=== PATIENT | male | born 1950 | race Caucasian/White ===

== ENCOUNTER 2020-12-19 23:10 | Inpatient (IN) | payer MEDICARE, SELFPAY ==
--- NOTE | ~2020-12-19 | CT_ITS ---
EXAMINATION: CT HEAD WITHOUT CONTRAST CT CERVICAL SPINE WITHOUT CONTRAST CLINICAL INFORMATION: Pain status post fall COMPARISON: None. TECHNIQUE: Multidetector CT imaging of the head and cervical spine was performed without the use of intravenous contrast. Multiplanar reformats are reviewed. This CT examination was performed using dose optimization techniques as appropriate, variously including the following: *Automated exposure control *Adjustment of mA and/or kV according to patient size (this includes techniques or standardized protocols for targeted exams where dose is matched to indication/reason for exam; i.e. extremities or head) *Use of iterative reconstruction technique DLP: 1292 mGy-cm. FINDINGS: There is no evidence of acute intracranial hemorrhage or territorial infarction. No abnormal mass effect or midline shift is seen. Mejias to white matter differentiation is well preserved. No extra-axial fluid collections are identified. The ventricles are normal in size. Mild patchy subcortical and periventricular matter low-attenuation changes statistically related to microangiopathic gliosis. The osseous structures and soft tissues are normal. The mastoid air cells and visualized portions of the paranasal sinuses are well-aerated. Atlantooccipital alignment is maintained. The vertebral bodies and posterior elements align normally. No acute fracture or subluxation. Vertebral body heights are maintained.Endplate osteophytes present at C4-C5, C5-C6 with accompanying of vertebral arthrosis leading to moderate right foraminal narrowing at C4-C5 and mild right foraminal narrowing at C5-C6. 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 The cervicomedullary junction and spinal cord are grossly unremarkable. The paraspinal soft tissues are unremarkable. The imaged lung apices are clear CT/CT cervical spine wo con IMPRESSION: No acute intracranial pathology. No cervical spine fracture or malalignment.
[2020-12-19 23:21] VITALS: BP 110/66; BP 99/60; PULSE 82; PULSE 96; RESP 12; TEMP 36.5; O2SAT 100; O2SAT 98; BMI 29.7
[2020-12-20] VITALS (24 sets, daily range): BP systolic 79–123; BP diastolic 43–82; PULSE 65–95; RESP 11–18; TEMP 36.4–37; O2SAT 92–100; BMI 29.3
[2020-12-20 00:15] LABS: Partial Thromboplastin Time 54.9 SEC (24.1-38.0)
[2020-12-20 00:21] LABS: Basophils Percent Auto 0.1 % (0-2); Eosinophils Absolute Auto 0.1 X10*3/uL (0.0-0.4); Hematocrit 36.8 % (42-52); Hemoglobin 14.2 g/dl (14.0-18.0); Imm Gran Abs Auto 0.13 X10*3/uL (0.00-0.03); Imm Gran Pct Auto 1.3 % (0.0-0.4); Lymphocytes Absolute Auto 0.7 X10*3/uL (1.2-4.9); Lymphocytes Percent Auto 6.7 % (20-40); Mean Corpuscular Hemoglobin 33.1 pg (27.0-33.0); Mean Corpuscular Volume 85.8 fL (80-98); Mean Platelet Volume 9.1 fL (9.4-12.4); Monocytes Absolute Auto 0.8 X10*3/uL (0.1-1.2); Monocytes Percent Auto 8.3 % (2-11); Neutrophils Absolute Auto 8.4 X10*3/uL (2.0-8.3); Neutrophils Percent Auto 82.6 % (45-73); Platelet Count 218 X10*3/uL (160-400); Red Blood Count 4.29 X10*6/uL (4.60-5.80); Red Cell Distribution Width 12.3 % (11.0-16.0); SCAN SMEAR FLAG 1; White Blood Count 10.2 X10*3/uL (4.8-10.8)
--- NOTE | 2020-12-20 00:24 | ECG_ITS ---
Test Reason : DIZZINESS Blood Pressure : / mmHG Vent. Rate : 082 BPM Atrial Rate : 182 BPM P-R Int : 000 ms QRS Dur : 092 ms QT Int : 382 ms P-R-T Axes : 000 -31 020 degrees QTc Int : 446 ms Atrial fibrillation Left axis deviation Nonspecific ST abnormality Abnormal ECG When compared with ECG of 08-MAR-2016 02:32, Atrial fibrillation has replaced Sinus rhythm ST now depressed in Anterior leads T wave amplitude has decreased in Anterolateral leads Referred By: Phil Gomez Electronically Signed By:CANDI CHRISTENSEN
--- NOTE | 2020-12-20 00:25 | ED_ITS ---
HPI - Fall General Chief Complaint: Fall Stated Complaint: etoh Time Seen by Provider: 12/20/20 00:15 Source: patient Mode of arrival: ambulatory Limitations: no limitations History of Present Illness HPI Narrative: This is a 70 years old male presented to the emergency department after a fall. The patient states that the he had a glass of wine and he tripped in jimmie [place] complaint: fall Onset (ago): hour(s) (2) Fall from: standing Fall witnessed: no Place fall occurred: home Loss of consciousness: none Prolonged down time: no Symptoms prior to fall: none Context: tripped/slipped Related Data Allergies Allergy/AdvReac Type Severity Reaction Status Date / Time Sulfa (Sulfonamide Allergy Unknown UNKNOWN Unverified 12/25/19 17:11 Antibiotics) [SULFA (SULFONAMIDE ANTIBIOTICS)] Review of Systems Review of Systems: Yes all other systems are reviewed and are negative Constitutional: Constitutional: Reports no additional constitutional complaints Cardiovascular: Cardiovascular: Reports no additional cardiovascular complaints Respiratory: Respiratory: Reports no additional respiratory complaints Musculoskeletal: Musculoskeletal: Reports no additional musculoskeletal complaints, Denies numbness and Denies tingling Neurologic: Denies lack of coordination, Denies focal weakness, Denies nu mbness, Denies Other visual disturbances, Denies convulsions, Denies seizure- like activity, Denies Sensory deficit (Neuro) and Denies tingling Psychiatric: Psychiatric: Reports no additional psychiatric complaints [facility] Past Medical History [facility] Narrative: History of AFib Anticoagulated with Pradaxa Social History Social History Advance Directives: No Physical Exam Vital Signs: Vital Signs: Last Vital Signs Temp 97.7 F 12/19/20 23:21 Pulse 75 12/20/20 01:40 Resp 16 12/20/20 01:40 BP 119/72 12/20/20 01:40 Pulse Ox 98 12/20/20 01:40 Body Mass Index 29.7 Const: Other: He is awake alert oriented x3 not acute distress General: cooperative and anxious Nutritional Appearance: average body habitus Orientation/consciousness: patient oriented x3 HENMT: Head: Yes normal to inspection Face and sinus: Yes normal facial exam Mouth: Normal oral and palatal mucosa present Neck: Neck: Yes normal visual inspection, Yes full ROM and Yes no lymphadenopathy Thyroid: Thyroid normal Chest: Chest palpation & inspection: normal inspection of the chest and normal palpation of entire chest wall Resp: Effort & Inspection: normal respiratory effort and able to speak in complete sentences Auscultation: clear to auscultation bilaterally Cardio: Jugular venous distension: no JVD Rate: regular rate Rhythm: regular rhythm GI: Inspection: Yes normal to inspection Palpation (GI): Soft to palpation, not firm, nontender and no guarding Percussion: Yes normal to percussion : General: Yes no CVA tenderness Back/Spine/Pelvis: Back: no CVA tenderness Neuro: General: patient oriented x3 Sensory Exam: No Sensory deficit (Neuro) Course Reevaluation(s) Reevaluation #1: Remain awake oriented x3 neurologically intact, sodium noted. I discussed the case with the ICU attending Dr Etienne because he neurologically intact no fluid to be administered no hypertonic saline as now - Fall Lab Data Result diagrams: 12/19/20 23:53 12/20/20 00:47 Labs: Lab Results 12/19/20 12/19/20 12/19/20 Range/Units 23:53 23:53 23:53 WBC 10.2 (4.8-10.8) X10*3/uL RBC 4.29 L (4.60-5.80) X10*6/uL Hgb 14.2 (14.0-18.0) g/dl Hct 36.8 L (42-52) % MCV 85.8 (80-98) fL MCH 33.1 H (27.0-33.0) pg MCHC 38.6 H (31.0-36.0) g/dl RDW 12.3 (11.0-16.0) % Plt Count 218 (160-400) X10*3/uL MPV 9.1 L (9.4-12.4) fL Immature Gran % (Auto) 1.3 H (0.0-0.4) % Neut % (Auto) 82.6 H (45-73) % Lymph % (Auto) 6.7 L (20-40) % [place] % (Auto) 8.3 (2-11) % Eos % (Auto) 1.0 (0-4) % Baso % (Auto) 0.1 (0-2) % Lymph # (Auto) 0.7 L (1.2-4.9) X10*3/uL [place] # (Auto) 0.8 (0.1-1.2) X10*3/uL Eos # (Auto) 0.1 (0.0-0.4) X10*3/uL Baso # (Auto) 0.0 (0.0-0.2) X10*3/uL Abs Immat Gran (auto) 0.13 H (0.00-0.03) X10*3/uL Absolute Neuts (auto) 8.4 H (2.0-8.3) X10*3/uL Absolute Nucleated RBC 0.000 (0.0-0.012) X10*3/uL Nucleated RBC % (auto) 0.0 (0.0-0.2) /100WBC APTT 54.9 H (24.1-38.0) SEC Sodium (135-145) mmol/L Potassium (3.3-5.1) mmol/L Chloride (96-108) mmol/L Carbon Dioxide (22-29) mmol/L Anion Gap (12-20) BUN (9-16) mg/dL Creatinine (0.5-1.4) mg/dL Estim Creat Clear Calc Estimated GFR Random Glucose (60-115) mg/dL Calcium (8.4-10.2) mg/dL Total Bilirubin (0.0-1.0) mg/dL AST (5-37) U/L ALT (0-40) U/L Alkaline Phosphatase (39-117) U/L Troponin I High Sens 28.6 (<3.5-35.0) ng/L Total Protein (6.5-8.0) g/dL Albumin (3.5-5.0) g/dL Ethyl Alcohol mg/dL 12/20/20 12/20/20 Range/Units 00:47 00:47 WBC (4.8-10.8) X10*3/uL RBC (4.60-5.80) X10*6/uL Hgb (14.0-18.0) g/dl Hct (42-52) % MCV (80-98) fL MCH (27.0-33.0) pg MCHC (31.0-36.0) g/dl RDW (11.0-16.0) % Plt Count (160-400) X10*3/uL MPV (9.4-12.4) fL Immature Gran % (Auto) (0.0-0.4) % Neut % (Auto) (45-73) % Lymph % (Auto) (20-40) % [place] % (Auto) (2-11) % Eos % (Auto) (0-4) % Baso % (Auto) (0-2) % Lymph # (Auto) (1.2-4.9) X10*3/uL [place] # (Auto) (0.1-1.2) X10*3/uL Eos # (Auto) (0.0-0.4) X10*3/uL Baso # (Auto) (0.0-0.2) X10*3/uL Abs Immat Gran (auto) (0.00-0.03) X10*3/uL Absolute Neuts (auto) (2.0-8.3) X10*3/uL Absolute Nucleated RBC (0.0-0.012) X10*3/uL Nucleated RBC % (auto) (0.0-0.2) /100WBC APTT (24.1-38.0) SEC Sodium 109 L* (135-145) mmol/L Potassium 3.8 (3.3-5.1) mmol/L Chloride 77 L (96-108) mmol/L Carbon Dioxide 17 L (22-29) mmol/L Anion Gap 19 (12-20) BUN 12 (9-16) mg/dL Creatinine 0.85 (0.5-1.4) mg/dL Estim Creat Clear Calc 100.2 Estimated GFR > 60 Random Glucose 100 (60-115) mg/dL Calcium 9.3 (8.4-10.2) mg/dL Total Bilirubin 1.8 H (0.0-1.0) mg/dL AST 64 H (5-37) U/L ALT 50 H (0-40) U/L Alkaline Phosphatase 132 H (39-117) U/L Troponin I High Sens (<3.5-35.0) ng/L Total Protein 6.0 L (6.5-8.0) g/dL Albumin 3.9 (3.5-5.0) g/dL Ethyl Alcohol < 10 mg/dL ECG Data Interpretation: A.fib with control the rate and no ischemic changes Critical Care Time Critical Care Time Critical Care Time: Yes Total Critical Care Time: 30 Attestation: caring for pt,speaking with ICU attending Discharge Plan Discharge Clinical Impression: Acute hyponatremia, Fall Patient Disposition: Admitted As Inpatient
[2020-12-20 00:26] LABS: Troponin-I High Sensitivity 28.6 ng/L (<3.5-35.0)
[2020-12-20 00:39] LABS: MANUAL DIFF FLAG NO; Mean Corpuscular HGB Conc 38.6 g/dl (31.0-36.0)
[2020-12-20 01:10] LABS: Ethanol < 10 mg/dL
[2020-12-20 01:28] LABS: Alanine Aminotransferase 50 U/L (0-40); Albumin Level 3.9 g/dL (3.5-5.0); Alkaline Phosphatase 132 U/L (39-117); Anion Gap 19 (12-20); Aspartate Amino Transferase 64 U/L (5-37); Bilirubin Total 1.8 mg/dL (0.0-1.0); Blood Urea Nitrogen 12 mg/dL (9-16); Calcium 9.3 mg/dL (8.4-10.2); Carbon Dioxide 17 mmol/L (22-29); Chloride 77 mmol/L (96-108); Creatinine Clr Calc Pharmacy 100.2; Estimated Glomerular Filt Rate > 60; Glucose Random 100 mg/dL (60-115); Potassium 3.8 mmol/L (3.3-5.1); Sodium 109 mmol/L (135-145)
[2020-12-20 02:21] LABS: Venous Blood Gas Refer to POC result
[2020-12-20 02:22] LABS: VBG Base Excess -6.4 mmol/L; VBG HCO3 17 mmol/L (22-26); VBG pCO2 30 mmHg; VBG pH 7.36 (7.32-7.43); VBG pO2 47 mmHg
[2020-12-20 02:29] LABS: Sodium Urine Random < 20.0 mmol/L
[2020-12-20 02:31] LABS: COVID-19 Test Negative (Negative); IDNOW Serial# 9DD0AD1C
--- NOTE | 2020-12-20 02:50 | PC.NURSE ---
Med rec completed with this patient and medical record on file.
[2020-12-20 02:54] LABS: Osmolality Urine 282 mosm/kg (373-1093); Osmolality, Serum 232 mosm/kg (281-305)
--- NOTE | 2020-12-20 03:04 | PC.NURSE ---
PT AWAKE AND ALERT, AMBULATORY TO BATHROOM X 2 WITH STEADY GAIT. PT REPORTS HE FELL DUE TO DIZZINESS, DENIES CHEST DISCOMFORT OR DYSPNEA. PT AWARE OF HIS SURROUNDINGS. NO TRMOR OR DIAPHORSIS. ASKED PT IF HE HAS EVER SUFFERED A WITHDRAWAL SEIZURE, HE DENIES. PT REQUESTING WATER, GIVEN JUICE AND TOLD THAT HE IS NOW NPO. ICU PROVIDER AT BEDSIDE FOR EVALUATION. DISCUSSION ABOUT STARTING PHENOBARBITOL PROTOCOL. PROVIDER REQUESTED A [employer] PLACED TO MONITOR OUTPUT.
[2020-12-20 03:28] LABS: Triglycerides 68 mg/dL
--- NOTE | 2020-12-20 03:36 | PM.CCHP ---
History of Present Illness Date of Service: 12/20/20 Chief Complaint: hyponatremia Patient is a 70-year-old male with a past medical history of AFib on Pradaxa, HTN, diastolic CHF and daily ETOH use who was BIBA after falling in his driveway at 8pm last evening. Patient states he ran out of beer so after drinking 6-8 beers and after taking 10 mg of cyclobenzaprine every 8 hours today, he went to the store to buy more. He states that when he pulled and was driveway and exited his vehicle, he took a few steps and was very unsteady on his feet, he fell landing on his buttocks and his side, he denies hitting his head or losing consciousness. He states he tried to crawl to his front door but ended up screaming to get the attention of his neighbor who called the police. He states he has been feeling fatigued and off balance for about 4-5 days but it was getting worse today. He states he has also had 4-5 days of brown, watery diarrhea, he denies any bloody or black stools. He also denies any chest pain, dizziness, headache, seizure activity, nausea vomiting or fevers. Pt states he has never had this happen before. He states he did go to the emergency room at [facility] last week and they told him his sodium was low but they discharged him home. He also says his low back was hurting him so we went to urgent care on Sunday of last week where he was given 10 mg of cyclobenzaprine and told to take them every 8 hours which she has been doing. He has also been drinking his typical 6-8 beers [employer] brand beers per day. He states is the only alcohol you drinks a but he drinks a pretty consistently could because he is concerned about what would happen if he stopped. He says he lives alone and is very isolated. Pt's PCP is Dr Miguel Shields in [place] In the emergency department, patient's labs are remarkable for NA 109, Cl 77, bicarb 17, serum osmolality 232, total bili 1.8, AST 64, ALT 50, alk-phos 132, urine osmolality 282, urine sodium <20, ETOH <10, covid negative. EKG showed afib with hr controlled, no st or t wave changes. Head and neck CT unremarkable. Patient to be transferred to the ICU for hyponatremia. Review of Systems Review of Systems: Yes all other systems are reviewed and are negative [facility] Past Medical History Medical History (Updated 12/20/20 @ 03:50 by Darby Davies PA-C) Diastolic CHF HTN (hypertension) Social History Social History Household Members: None Housing: House Do you presently have visiting nurse or other home services: No Patient Tobacco Use Status: Current someday Tobacco user Tobacco use type: Cigarette Smoked in Last 30 Days: Yes e-Cigarette/Vaping Use: Never Used Patient Interested in Nicotine Replacement: Yes Use of substances other than those prescribed or required for medical reasons: No Have you been hit, kicked, punched, or otherwise hurt by someone within the past year? If so, by whom?: No Do you feel safe in your current relationship?: No Current Relationship Is there a partner from a previous relationship who is making you feel unsafe now?: No Are you made to feel afraid or neglected: No Advance Directives: No Advance Directives Information Provided: No (declined) Advance Directives on File: No Do you have thoughts of harming others: None Do you have a plan to hurt others: No Plan Recently lost weight without trying: No Eating poorly because of decreased appetite: No Nutrition Risks: No Nutritional Risk Poor oral hygiene: No Meds Allergies Allergy/AdvReac Type Severity Reaction Status Date / Time Sulfa (Sulfonamide Allergy Unknown UNKNOWN Verified 12/20/20 03:49 Antibiotics) [SULFA (SULFONAMIDE ANTIBIOTICS)] Active Medications: Current Medications Generic Name Dose Route Start Last Admin Trade Name Freq PRN Reason Stop Dose Admin Sodium Chloride 40 ml/ IV 40 mls @ 20 mls/hr 12/20/20 02:37 Miscellaneous Supplies IV 12/20/20 04:36 ONCE ONE Sodium Chloride 500 mls @ 250 mls/hr 12/20/20 03:30 Ns IV 12/20/20 04:29 .Q2H [facility] Pharmacy Consult 1 each 12/20/20 01:52 Consult Rx Perform Med Rec MISCELLANE ONCE PRN Consult order Home Medications Medication Instructions Recorded Confirmed Last Taken Type amlodipine 10 mg tablet 1 tab PO DAILY 12/20/20 12/20/20 12/19/20 09:00 History bupropion HCl 150 mg tablet,12 hr 1 tab PO BID 12/20/20 12/20/20 Unknown History sustained-release cyclobenzaprine 10 mg tablet 1 tab PO TID 12/20/20 12/20/20 12/19/20 13:00 History dabigatran etexilate 150 mg 1 cap PO BID 12/20/20 12/20/20 12/19/20 09:00 History capsule (Pradaxa) lisinopril 40 mg tablet 1 tab PO DAILY 12/20/20 12/20/20 12/19/20 09:00 History metoprolol succinate 100 mg 1 tab PO DAILY 12/20/20 12/20/20 12/19/20 09:00 History tablet,extended release 24 hr Physical Exam Vital Signs: Vital Signs: Last Vital Signs Temp 97.7 F 12/19/20 23:21 Pulse 75 12/20/20 01:40 Resp 16 12/20/20 01:40 BP 119/72 12/20/20 01:40 Pulse Ox 98 12/20/20 01:40 Body Mass Index 29.7 Const: General: cooperative, healthy appearing, comfortable and no acute distress Nutritional Appearance: average body habitus Orientation/consciousness: patient oriented x3 Limitations: no limitations HENMT: Head: Yes normal to inspection, Yes normocephalic, Yes atraumatic, No abrasion, No contusion and No scalp tenderness Ears: hearing grossly normal bilaterally General nose exam: Normal external nose present Face and sinus: Yes normal facial exam Eyes: General: appearance normal, both eyes and all related structures Neck: Neck: Yes normal visual inspection, Yes full ROM and Yes no JVD Resp: Effort & Inspection: normal respiratory effort and able to speak in complete sentences Auscultation: clear to auscultation bilaterally Cardio: Rate: regular rate Rhythm: regular rhythm Heart sounds: normal S1 and S2 GI: Inspection: Yes normal to inspection Palpation (GI): Soft to palpation and nontender Skin: General skin exam: no rashes or lesions noted Neuro: General: patient oriented x3 Extrem: General: Yes normal to inspection Results Labs CBC and Chem 7: 12/19/20 23:53 12/20/20 00:47 Labs: Laboratory Results - last 24 hr 12/19/20 12/19/20 12/19/20 23:53 23:53 23:53 MCV 85.8 MCH 33.1 H MCHC 38.6 H RDW 12.3 Plt Count 218 MPV 9.1 L Immature Gran % (Auto) 1.3 H Neut % (Auto) 82.6 H Lymph % (Auto) 6.7 L [place] % (Auto) 8.3 Eos % (Auto) 1.0 Baso % (Auto) 0.1 Lymph # (Auto) 0.7 L [place] # (Auto) 0.8 Eos # (Auto) 0.1 Baso # (Auto) 0.0 Abs Immat Gran (auto) 0.13 H Absolute Neuts (auto) 8.4 H Absolute Nucleated RBC 0.000 Nucleated RBC % (auto) 0.0 APTT 54.9 H VBG pH VBG pCO2 VBG pO2 VBG HCO3 VBG O2 Saturation VBG Base Excess Anion Gap Estim Creat Clear Calc Estimated GFR Random Glucose Osmolality Calcium Total Bilirubin AST ALT Alkaline Phosphatase Troponin I High Sens 28.6 Total Protein Albumin Triglycerides Urine Osmolality Ur Random Sodium Ethyl Alcohol COVID-19 (MANDA) COVID-19 [employer] 12/20/20 12/20/20 12/20/20 00:47 00:47 02:02 MCV MCH MCHC RDW Plt Count MPV Immature Gran % (Auto) Neut % (Auto) Lymph % (Auto) [place] % (Auto) Eos % (Auto) Baso % (Auto) Lymph # (Auto) [place] # (Auto) Eos # (Auto) Baso # (Auto) Abs Immat Gran (auto) Absolute Neuts (auto) Absolute Nucleated RBC Nucleated RBC % (auto) APTT VBG pH VBG pCO2 VBG pO2 VBG HCO3 VBG O2 Saturation VBG Base Excess Anion Gap 19 Estim Creat Clear Calc 100.2 Estimated GFR > 60 Random Glucose 100 Osmolality 232 L Calcium 9.3 Total Bilirubin 1.8 H AST 64 H ALT 50 H Alkaline Phosphatase 132 H Troponin I High Sens Total Protein 6.0 L Albumin 3.9 Triglycerides 68 Urine Osmolality Ur Random Sodium Ethyl Alcohol < 10 COVID-19 (MANDA) COVID-19 [employer] 12/20/20 12/20/20 12/20/20 02:02 02:02 02:02 MCV MCH MCHC RDW Plt Count MPV Immature Gran % (Auto) Neut % (Auto) Lymph % (Auto) [place] % (Auto) Eos % (Auto) Baso % (Auto) Lymph # (Auto) [place] # (Auto) Eos # (Auto) Baso # (Auto) Abs Immat Gran (auto) Absolute Neuts (auto) Absolute Nucleated RBC Nucleated RBC % (auto) APTT VBG pH VBG pCO2 VBG pO2 VBG HCO3 VBG O2 Saturation VBG Base Excess Anion Gap Estim Creat Clear Calc Estimated GFR Random Glucose Osmolality Calcium Total Bilirubin AST ALT Alkaline Phosphatase Troponin I High Sens Total Protein Albumin Triglycerides Urine Osmolality 282 L Ur Random Sodium < 20.0 Ethyl Alcohol COVID-19 (MANDA) Negative COVID-19 Clin Com See Note 12/20/20 02:17 MCV MCH MCHC RDW Plt Count MPV Immature Gran % (Auto) Neut % (Auto) Lymph % (Auto) [place] % (Auto) Eos % (Auto) Baso % (Auto) Lymph # (Auto) [place] # (Auto) Eos # (Auto) Baso # (Auto) Abs Immat Gran (auto) Absolute Neuts (auto) Absolute Nucleated RBC Nucleated RBC % (auto) APTT VBG pH 7.36 VBG pCO2 30 VBG pO2 47 VBG HCO3 17 L VBG O2 Saturation 68.0 VBG Base Excess -6.4 Anion Gap Estim Creat Clear Calc Estimated GFR Random Glucose Osmolality Calcium Total Bilirubin AST ALT Alkaline Phosphatase Troponin I High Sens Total Protein Albumin Triglycerides Urine Osmolality Ur Random Sodium Ethyl Alcohol COVID-19 (MANDA) COVID-19 Clin Com Imaging Radiologist's Impressions: Impressions Cervical Spine CT 12/20/20 00:35 IMPRESSION: No acute intracranial pathology. No cervical spine fracture or malalignment. Head CT 12/20/20 00:35 IMPRESSION: No acute intracranial pathology. No cervical spine fracture or malalignment. Assessment and Plan (1) Acute hyponatremia: Status: Acute (2) Fall: Status: Acute (3) ETOH abuse: Status: Acute (4) Atrial fibrillation: Status: Acute Hyponatremia: serum Na 109, serum osmol 232, urine osm 282, ur Na <20, appropriate ADH, unlikely beer podomania as urine Na would be lower. Pt hypovolemic. Replace with 40cc 3% sodium over 2 hours. Fluid restrict to 1 L per 24 hours. Pt NPO. Arguelles in place for fluid mgmt. Will follow serum sodium. ETOH abuse: phenobarbital protocol started, ETOH <10, will start prior to pt becoming symptomatic Afib: continue pradaxa, add metoprolol for rate control if needed. Medical records from [facility] requested. Assessment plan discussed with Dr. Etienne.
--- NOTE | 2020-12-20 03:55 | PC.NURSE ---
Waiting on pharmacy to deliver 3.0% sodium fluid. Unable to administer 0.9% saline solution until pharmacy verifies the order.
--- NOTE | 2020-12-20 04:05 | PC.NURSE ---
Provider contacted to clarify order for 0.9% NS. Provider stated that she was going to DC the order because pharmacy is now available and is delivering the 3.0% saline solution.
[2020-12-20 07:32] LABS: Eosinophils Absolute Auto 0.1 X10*3/uL (0.0-0.4); Eosinophils Percent Auto 1.1 % (0-4); Hematocrit 34.2 % (42-52); Imm Gran Abs Auto 0.07 X10*3/uL (0.00-0.03); Imm Gran Pct Auto 0.9 % (0.0-0.4); Lymphocytes Absolute Auto 0.7 X10*3/uL (1.2-4.9); MANUAL DIFF FLAG SCAN; Mean Corpuscular Volume 86.4 fL (80-98); Mean Platelet Volume 9.5 fL (9.4-12.4); Monocytes Absolute Auto 0.9 X10*3/uL (0.1-1.2); Monocytes Percent Auto 11.7 % (2-11); Neutrophils Absolute Auto 6.2 X10*3/uL (2.0-8.3); Neutrophils Percent Auto 77.3 % (45-73); Platelet Count 207 X10*3/uL (160-400); Red Blood Count 3.96 X10*6/uL (4.60-5.80); Red Cell Distribution Width 12.4 % (11.0-16.0); SCAN SMEAR FLAG 1
[2020-12-20 07:37] LABS: INTERNATIONAL NORM RATIO 1.2 (0.9-1.1); Prothrombin Time 13.2 SEC (9.9-13.0)
[2020-12-20 07:47] LABS: Calcium 9.2 mg/dL (8.4-10.2); Phosphorus 3.1 mg/dL (2.7-4.5)
[2020-12-20 07:52] LABS: B Type Natriuretic Peptide 250 pg/mL (<100)
[2020-12-20] MEDS: PHENobarbitaL sodium 130 MG/ML VIAL 372.48 MG IM (08:03)
[2020-12-20 09:03] LABS: Hemoglobin 11.4 g/dl (14.0-18.0); Mean Corpuscular HGB Conc 33.3 g/dl (31.0-36.0); Mean Corpuscular Hemoglobin 28.7 pg (27.0-33.0)
--- NOTE | 2020-12-20 09:09 | MHC.CLN ---
RECOMMEND 2GM NA DIET R/T CHF AND 1000CCFLUID RESTRICTION PER PA H&P R/T HYPONATREMIA
[2020-12-20 09:38] LABS: Anion Gap 16 (12-20); Blood Urea Nitrogen 12 mg/dL (9-16); Calcium 9.3 mg/dL (8.4-10.2); Carbon Dioxide 19 mmol/L (22-29); Chloride 83 mmol/L (96-108); Creatinine Clr Calc Pharmacy 114.3; Estimated Glomerular Filt Rate > 60; Glucose Random 102 mg/dL (60-115); Sodium 114 mmol/L (135-145)
[2020-12-20 09:41] LABS: SLIDE REVIEW VERIFIED
--- NOTE | 2020-12-20 12:39 | PC.NURSE ---
Pt given IM phenobarbitol per emar. pt bp trending in 70s Systolic, map >60, pt alert and oriented, no dizziness or ligh headedness. Md aware, rechecks of bp done, sbp back in 90s-100s. said to hold phenobarbitol
--- NOTE | 2020-12-20 13:10 | MHC.CM.PN ---
Met with pt to discuss d/c planning: pt resides in his own home with his dog, Catherine. Pt states he has no family in the area (a brother in [place] only) and no friends. It's just me and Catherine Pt has no services, is independent and drives. Pt very concerned with Catherine as she is home alone without caregivers. Call placed to [facility] Holden for assistance. [place] [employer] to meet with Pt in ICU to obtain information and assist with care for Catherine. Pt with an ETOH hx: not interested in VNA but may consider CARE team consult once medically stable. Declined HCP completion. PCP is Miguel Castle in [place]. Pt will need transportation home; taxi vs [facility] shuttle. CM to follow for changes in d/c plans.
[2020-12-20 15:53] LABS: Anion Gap 12 (12-20); Blood Urea Nitrogen 12 mg/dL (9-16); Calcium 9.4 mg/dL (8.4-10.2); Carbon Dioxide 24 mmol/L (22-29); Chloride 84 mmol/L (96-108); Estimated Glomerular Filt Rate > 60; Glucose Random 134 mg/dL (60-115); Potassium 3.6 mmol/L (3.3-5.1); Sodium 116 mmol/L (135-145)
[2020-12-20] MEDS: Dabigatran Etexilate Mesylate 150 MG CAPSULE PO (18:03)
[2020-12-20] MEDS: Lactulose 20 GM/30 ML SOLUTION 30 GM PO (18:03)
[2020-12-20] MEDS: 0.9 % Sodium Chloride Flush 3 ML SYRINGE IVFLUSH (20:23)
[2020-12-21] VITALS (21 sets, daily range): BP systolic 83–124; BP diastolic 43–80; PULSE 77–135; RESP 9–25; TEMP 35.7–36.4; O2SAT 87–100; BMI 28.4
[2020-12-21] MEDS: 0.9 % Sodium Chloride Flush 3 ML SYRINGE IVFLUSH ×3 (01:07→16:32)
[2020-12-21 06:22] LABS: Partial Thromboplastin Time 53.2 SEC (24.1-38.0)
[2020-12-21 06:50] LABS: Albumin Level 3.7 g/dL (3.5-5.0); Anion Gap 12 (12-20); Blood Urea Nitrogen 11 mg/dL (9-16); Calcium 9.2 mg/dL (8.4-10.2); Carbon Dioxide 23 mmol/L (22-29); Chloride 87 mmol/L (96-108); Creatinine Clr Calc Pharmacy 102.9; Estimated Glomerular Filt Rate > 60; Glucose Random 136 mg/dL (60-115); Magnesium 2.2 mg/dL (1.6-2.6); Phosphorus 3.4 mg/dL (2.7-4.5); Potassium 3.5 mmol/L (3.3-5.1); Sodium 118 mmol/L (135-145)
[2020-12-21] MEDS: Metoprolol Succinate ER 50 MG TAB.ER.24H PO (08:28)
[2020-12-21] MEDS: Dabigatran Etexilate Mesylate 150 MG CAPSULE PO ×2 (08:28→19:43)
--- NOTE | 2020-12-21 09:40 | PC.NURSE ---
calixto removed at 0935, dtv at [phone].
[2020-12-21] MEDS: Sodium Chloride Tab 1 GM TABLET 2 GM PO ×3 (09:44→19:43)
[2020-12-21] MEDS: Cyclobenzaprine HCl 10 MG TABLET PO ×2 (12:00→19:44)
--- NOTE | 2020-12-21 13:00 | CA_ITS ---
Transthoracic Echocardiogram Patient (Last, First, Middle): Tayo Davis, Gender: Male Date of : 1950 Age: 70 Procedure Date: 12/21/2020 Procedure Type: Transthoracic Echocardiogram Location: ICU Height: 182.88 cm Weight: 97.98 kg BSA: 2.20 m2 Heart Rate: bpm BP: 100 / 62 mmHg Nurse Substance Abuse: Referring MD: Darby Davies PA-C Symptoms: ? diastolic chf Study Quality: Fair/CONTRAST USED ECG Rhythm: Atrial Fibrillation Conclusions: - The left ventricular systolic function is low normal. The visually estimated ejection fraction is between 50-55%. - Mildly increased right ventricular cavity size. There is mildly decreased right ventricular systolic function. Findings Left Ventricle Normal left ventricular cavity size. There is mildly increased left ventricular wall thickness. The left ventricular systolic function is low normal. The visually estimated ejection fraction is between 50-55%. There is no evidence of regional wall motion abnormalities. Diastolic function is indeterminate on the basis of available data. Right Ventricle Mildly increased right ventricular cavity size. There is mildly decreased right ventricular systolic function. Atria The left atrium is likely dilated. Aortic Valve The aortic valve structure and function is likely normal. There is no aortic valve stenosis. There is no aortic valve regurgitation. Mitral Valve Normal mitral valve structure and function. There is no mitral valve regurgitation. There is no mitral valve stenosis. Pulmonic Valve The pulmonic valve is likely normal. Tricuspid Valve Normal tricuspid valve structure. There is trace tricuspid valve regurgitation. Normal right atrial pressure. There is no evidence of pulmonary hypertension. Great Vessels All visible segments of the aorta are normal in size. The visualized portions of the pulmonary artery and branches are normal. Venous The inferior vena cava is normal in size and collapses greater than 50% with inspiration. Pericardium/Pleural There is no evidence of pericardial effusion. Prior Study Comparison Changes noted compared to prior study dated: 03/08/2016. Low normal LVEF. Mildly reduced RV function. Measurements 2D Linear Measurements IVSd: 1.18 0.6-0.9/0.6-1.0 cm LVIDd: 4.27 3.9-5.3/4.2-5.9 cm LVIDd Index: 1.94 2.4-3.2/2.2-3.1 cm/m2 LVIDs: 2.99 2.0-3.6 cm LVPWd: 1.23 0.7-1.1 cm Ao Root: 3.60 2.1-3.5 cm LA Diam: 3.10 2.7-3.8/3.0-4.0 cm LAIDs Index: 1.41 1.5-2.3 cm/m2 LV Mass: 229.03 67-162/88-224 g LV Mass Index: 104.11 43-95/49-115 g/m2 LVOT Diam: 2.20 3.0+(-)1.3 cm 2D Systolic Function EF 4C: 43.90 >55% EF 2C: 36.20 >55% Mitral Valve MV Pk E: 0.77 MV Decel Time: 158.00 E'Lateral: 13.60 E'Medial: 8.16 E/E' Med: 9.40 E/E' Lat: 5.60 PHT: 46.00 MVA PHT: 4.78 Decel Branch: 4.87 Aortic Valve AoV Pk William: 0.94 AoV Mn William: 0.59 AoV VTI: 0.19 AoV Pk Grad: 4.00 Aov Mn Grad: 2.00 ALISHA Cont.VTI: 2.44 LVOT LVOT Pk William: 0.78 LVOT Mn William: 0.52 LVOT VTI: 0.12 LVOT Pk Grad: 2.00 LVOT Mn Grad: 1.00 LVOT Diam: 2.20 LVOT Area: 3.80 Diastolic Function MV Pk E: 0.77 E'Medial: 8.16 E/E' Med: 9.40 E' Laterial: 13.60 E/E' Lat: 5.60 Tricuspid Valve TR Pk William: 2.31 TR Pk Grad: 21.00 RVSP: 23.00 Great Vessels Aorta Ao Root-2D: 3.60 2.0-3.7 cm Pulmonary Valve PV Pk William: 0.68 Peak PV Grad: 2.00 Updated in Other Vendor System with Status of Final Hernando Waite MD electronically signed on 12/21/2020 5:49:33 PM with status of Final
[2020-12-21 13:23] LABS: Anion Gap 14 (12-20); Blood Urea Nitrogen 11 mg/dL (9-16); Calcium 8.8 mg/dL (8.4-10.2); Carbon Dioxide 23 mmol/L (22-29); Chloride 88 mmol/L (96-108); Creatinine Clr Calc Pharmacy 100.4; Estimated Glomerular Filt Rate > 60; Glucose Random 157 mg/dL (60-115); Potassium 3.7 mmol/L (3.3-5.1); Sodium 121 mmol/L (135-145)
--- NOTE | 2020-12-21 13:34 | PM.CCPN ---
Subjective Subjective Date of Service: 12/21/20 Interval History: 70-year-old gentleman with underlying history of AFib on Pradaxa, hypertension, alcohol dependency, poor p.o. intake otherwise, diastolic congestive heart failure admitted on 12/20/2020 with mechanical fall. On ER evaluation patient noted to be significantly hyponatremic with [address] head showed no acute intracranial process and he has been admitted to intensive care unit for close monitoring and further care. His hyponatremia was treated conservatively with increased p.o. solute intake and 8 improved slowly with most recent sodium of 121. No events overnight. Critical Care Time (minutes): 0 Physical Exam Vital Signs: Vital Signs: Last Vital Signs Temp 96.3 F L 12/21/20 12:00 Pulse 103 H 12/21/20 13:00 Resp 13 12/21/20 13:00 BP 93/58 L 12/21/20 13:00 Pulse Ox 92 12/21/20 13:00 Body Mass Index 28.4 Const: General: no acute distress, alert and awake Eyes: Sclerae: sclerae normal EOM: EOMs intact bilaterally Neck: Neck: Yes no lymphadenopathy, Yes trachea midline and Yes supple Resp: Effort & Inspection: normal respiratory effort and no respiratory distress Auscultation: clear to auscultation bilaterally Cardio: Rate: regular rate Rhythm: regular rhythm Heart sounds: no gallops, no murmurs and no rubs GI: Palpation (GI): Soft to palpation and Other GI palpation findings present ( Nontender) Auscultation: normal bowel sounds Extrem: General: Yes no pedal edema, No clubbing and No cyanosis Objective Data Labs CBC & Chem 7: 12/20/20 06:52 12/21/20 12:45 Labs: Laboratory Results - last 24 hr 12/20/20 12/21/20 12/21/20 13:59 05:26 05:26 APTT 53.2 H Sodium 116 L* 118 L* Potassium 3.6 3.5 Chloride 84 L 87 L Carbon Dioxide 24 23 Anion Gap 12 12 BUN 12 11 Creatinine 0.79 0.81 Estim Creat Clear Calc 107.0 102.9 Estimated GFR > 60 > 60 Random Glucose 134 H 136 H Calcium 9.4 9.2 Phosphorus 3.4 Magnesium 2.2 Albumin 3.7 12/21/20 12:45 APTT Sodium 121 L Potassium 3.7 Chloride 88 L Carbon Dioxide 23 Anion Gap 14 BUN 11 Creatinine 0.83 Estim Creat Clear Calc 100.4 Estimated GFR > 60 Random Glucose 157 H Calcium 8.8 Phosphorus Magnesium Albumin Quality Stroke Does the patient have a stroke diagnosis?: No VTE Prior VTE?: No VTE Risk Level:: Medical - low VTE Device Contraindication: Treatment Not Tolerated VTE Drug Contraindication: N/A - Med Ordered Progress Note: A&P Assessment and plan (1) Atrial fibrillation: Status: Acute Assessment and Plan: Assessment: 70-year-old gentleman admitted with subacute to chronic hypernatremia likely secondary to beer potomania Plan: Neuro: No acute issues. Cardiac: No acute issues. Underlying AFib, continued on Pradaxa and metoprolol succinate. Pulmonary: No acute issues. Renal: Subacute to chronic hyponatremia secondary to beer potomania. Treated conservatively with increased p.o. intake and salt tabs. Continue to monitor electrolytes. Endo: No acute issues. GI: No acute issues. ID: No acute issues Heme/Onc: No acute issues. Psych: No acute issues. Miscellaneous: No acute issues. Prophylaxis: Productive Diet: Regular (2) ETOH abuse: Status: Acute (3) Hyponatremia: Status: Acute
[2020-12-21 20:11] LABS: Anion Gap 15 (12-20); Blood Urea Nitrogen 12 mg/dL (9-16); Calcium 9.2 mg/dL (8.4-10.2); Carbon Dioxide 23 mmol/L (22-29); Chloride 90 mmol/L (96-108); Creatinine Clr Calc Pharmacy 101.6; Estimated Glomerular Filt Rate > 60; Glucose Random 105 mg/dL (60-115); Potassium 3.9 mmol/L (3.3-5.1); Sodium 124 mmol/L (135-145)
[2020-12-22] VITALS (9 sets, daily range): BP systolic 86–125; BP diastolic 65–84; PULSE 76–97; RESP 16–18; TEMP 36.1–36.6; O2SAT 97–100; BMI 28.5
[2020-12-22] MEDS: 0.9 % Sodium Chloride Flush 3 ML SYRINGE IVFLUSH ×4 (01:38→22:19)
[2020-12-22 06:44] LABS: MANUAL DIFF FLAG NO
[2020-12-22 06:51] LABS: Basophils Percent Auto 0.5 % (0-2); Eosinophils Absolute Auto 0.1 X10*3/uL (0.0-0.4); Hematocrit 37.5 % (42-52); Hemoglobin 13.8 g/dl (14.0-18.0); Imm Gran Abs Auto 0.06 X10*3/uL (0.00-0.03); Lymphocytes Absolute Auto 1.1 X10*3/uL (1.2-4.9); Lymphocytes Percent Auto 19.4 % (20-40); Mean Corpuscular HGB Conc 36.8 g/dl (31.0-36.0); Mean Corpuscular Hemoglobin 32.5 pg (27.0-33.0); Mean Corpuscular Volume 88.2 fL (80-98); Mean Platelet Volume 9.3 fL (9.4-12.4); Monocytes Absolute Auto 0.9 X10*3/uL (0.1-1.2); Monocytes Percent Auto 15.4 % (2-11); Neutrophils Absolute Auto 3.7 X10*3/uL (2.0-8.3); Neutrophils Percent Auto 62.7 % (45-73); Platelet Count 213 X10*3/uL (160-400); Red Blood Count 4.25 X10*6/uL (4.60-5.80); Red Cell Distribution Width 12.8 % (11.0-16.0); White Blood Count 5.9 X10*3/uL (4.8-10.8)
[2020-12-22 07:13] LABS: Anion Gap 14 (12-20); Blood Urea Nitrogen 10 mg/dL (9-16); Calcium 8.6 mg/dL (8.4-10.2); Carbon Dioxide 21 mmol/L (22-29); Chloride 92 mmol/L (96-108); Creatinine Clr Calc Pharmacy 130.6; Estimated Glomerular Filt Rate > 60; Glucose Random 123 mg/dL (60-115); Potassium 3.9 mmol/L (3.3-5.1); Sodium 123 mmol/L (135-145)
[2020-12-22] MEDS: Sodium Chloride Tab 1 GM TABLET 2 GM PO ×3 (09:33→22:17)
[2020-12-22] MEDS: Metoprolol Succinate ER 50 MG TAB.ER.24H PO (09:34)
[2020-12-22] MEDS: Dabigatran Etexilate Mesylate 150 MG CAPSULE PO ×2 (09:34→22:17)
--- NOTE | 2020-12-22 10:00 | PM.IMPN ---
Progress Note: A&P (1) Hyponatremia: Status: Acute Assessment and Plan: 70-year-old man admitted to the ICU initially with severe hyponatremia secondary to beer potomania. he had fallen at home after drinking 6-8 beers an taking cyclobenzaprine which she was given for back pain recently. Initial sodium was 109. Hyponatremia . Sodium trending up Treated with salt tabs and oral intake Paroxysmal atrial fibrillation Continue metoprolol and Pradaxa Alcohol abuse Care team consultation CIWA, no signs of withdrawal at this time DVT prophylaxis with Pradaxa Disposition. Possible discharge home tomorrow if sodium reaches 130. Attending Dr. Hagen Subjective Subjective Date of Service: 12/22/20 Review of Systems Follow-up hyponatremia, beer potomania Patient feeling better today Denies chest pain, shortness of breath, nausea, vomiting, diarrhea ALL OTHER SYSTEMS ARE REVIEWED AND ARE NEGATIVE Physical Exam Vital Signs: Vital Signs: Last Vital Signs Temp 96.9 F 12/22/20 07:35 Pulse 97 12/22/20 09:34 Resp 18 12/22/20 07:35 BP 120/82 12/22/20 09:34 Pulse Ox 100 12/22/20 07:35 Body Mass Index 28.5 Appearing in no acute distress lung sounds are clear to auscultation heart regular rate rhythm, clear S1, S2 positive bowel sounds, abdomen is soft, nontender neuro patient is alert x3, no focal deficits Objective Data Current Medications Generic Name Dose Route Start Last Admin Trade Name Freq PRN Reason Stop Dose Admin Cyclobenzaprine HCl 10 mg 12/21/20 11:24 12/21/20 19:44 Cyclobenzaprine Hcl 10 Mg Tablet PO 10 mg TID PRN Administration Muscle Spasm Dabigatran 150 mg 12/20/20 17:05 12/22/20 09:34 Dabigatran Etexilate Mesylate 150 Mg Capsule PO 150 mg BID KEIKO Administration Metoprolol Succinate 50 mg 12/21/20 09:00 12/22/20 09:34 Metoprolol Succinate Er 50 Mg Tab.Er.24h PO 50 mg DAILY KEIKO Administration Protocol Pharmacy Consult 1 each 12/20/20 01:52 Consult Rx Perform Med Rec MISCELLANE ONCE PRN Consult order Sodium Chloride 3 ml 12/20/20 20:00 12/22/20 09:34 0.9 % Sodium Chloride Flush 3 Ml Syringe IVFLUSH 3 ml QSHIFT KEIKO Administration Sodium Chloride 2 gm 12/21/20 09:00 12/22/20 09:33 Sodium Chloride Tab 1 Gm Tablet PO 2 gm TID KEIKO Administration Labs CBC & Chem 7: 12/22/20 05:59 12/22/20 05:59 Labs: Laboratory Results - last 24 hr 12/21/20 12/21/20 12/22/20 12:45 18:46 05:59 MCV 88.2 MCH 32.5 MCHC 36.8 H RDW 12.8 Plt Count 213 MPV 9.3 L Immature Gran % (Auto) 1.0 H Neut % (Auto) 62.7 Lymph % (Auto) 19.4 L Pershing % (Auto) 15.4 H Eos % (Auto) 1.0 Baso % (Auto) 0.5 Lymph # (Auto) 1.1 L Pershing # (Auto) 0.9 Eos # (Auto) 0.1 Baso # (Auto) 0.0 Abs Immat Gran (auto) 0.06 H Absolute Neuts (auto) 3.7 Absolute Nucleated RBC 0.000 Nucleated RBC % (auto) 0.0 Anion Gap 14 15 Estim Creat Clear Calc 100.4 101.6 Estimated GFR > 60 > 60 Random Glucose 157 H 105 Calcium 8.8 9.2 12/22/20 05:59 MCV MCH MCHC RDW Plt Count MPV Immature Gran % (Auto) Neut % (Auto) Lymph % (Auto) Pershing % (Auto) Eos % (Auto) Baso % (Auto) Lymph # (Auto) Pershing # (Auto) Eos # (Auto) Baso # (Auto) Abs Immat Gran (auto) Absolute Neuts (auto) Absolute Nucleated RBC Nucleated RBC % (auto) Anion Gap 14 Estim Creat Clear Calc 130.6 Estimated GFR > 60 Random Glucose 123 H Calcium 8.6 D Quality Stroke Does the patient have a stroke diagnosis?: No VTE Prior VTE?: No VTE Risk Level:: Medical - low VTE Device Contraindication: Treatment Not Tolerated VTE Drug Contraindication: N/A - Med Ordered
[2020-12-22 12:13] LABS: Blood Urea Nitrogen 11 mg/dL (9-16); Calcium 8.9 mg/dL (8.4-10.2); Creatinine Clr Calc Pharmacy 108.6; Estimated Glomerular Filt Rate > 60; Glucose Random 103 mg/dL (60-115)
[2020-12-22 12:29] LABS: Anion Gap 12 (12-20); Carbon Dioxide 22 mmol/L (22-29); Chloride 94 mmol/L (96-108); Sodium 124 mmol/L (135-145)
--- NOTE | 2020-12-22 14:53 | MHC.RECOVSUP ---
Recovery Support note: Patient is a 70 year old [place]ic speaking male who presented to [facility] ED via EMS after a fall while intoxicated. This repairer typewriter met with patient to discuss his alcohol use and recovery supports. Patient was agreeable to meeting with this repairer typewriter however expressed disbelief that there was anything that could be done to support his recovery. Patient reports he has been drinking a lot lately due to life stressors including having no income and potentially having to sell his home. 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. Patient reports he is very familiar with the world of recovery. Discussed outpatient supports with patient. Patient believed there weren't any AA meetings going on however this repairer typewriter provided patient with a list of meetings in [place]. Patient is very familiar with the AA literature and quoted the [employer] at points. Patient reported no interest in IOP or medications. Patient reports he previously received Campral however did not find it helpful. Discussed naltrexone with patient however he was not interested. Patient declined interest in meeting with a swimming coach or instructor. Discussed with patient that he will be done with the detox portion of his recovery upon discharge and patient acknowledged. Patient was indifferent as to whether he would stop drinking or not. Patient reports we could have the best plan in place and I could leave here and get hit by a bus. Patient acknowledges the negative health consequences of his drinking and the issues that his drinking is creating. Encouraged patient to reflect on what worked well for him during his past period of sobriety and to utilize meetings for support. Patient acknowledged and reports no questions or concerns. Patient has the contact information for this repairer typewriter in the event that he has questions later on. Discussed case with patient's RN.
[2020-12-22] MEDS: Cyclobenzaprine HCl 10 MG TABLET PO ×2 (15:34→22:17)
[2020-12-22 15:53] LABS: Anion Gap 13 (12-20); Blood Urea Nitrogen 12 mg/dL (9-16); Calcium 8.6 mg/dL (8.4-10.2); Carbon Dioxide 23 mmol/L (22-29); Chloride 94 mmol/L (96-108); Creatinine Clr Calc Pharmacy 101.9; Estimated Glomerular Filt Rate > 60; Glucose Random 104 mg/dL (60-115); Potassium 4.4 mmol/L (3.3-5.1); Sodium 126 mmol/L (135-145)
--- NOTE | 2020-12-22 16:13 | MHC.CM.PN ---
Male 70 dx hypona. DP home with support from [facility] in [facility]. They will also provide transportation to home. Discharge is planned for tomorrow 12/23/20. CM will follow.
[2020-12-22 19:33] LABS: Anion Gap 12 (12-20); Blood Urea Nitrogen 12 mg/dL (9-16); Calcium 8.6 mg/dL (8.4-10.2); Carbon Dioxide 23 mmol/L (22-29); Chloride 95 mmol/L (96-108); Estimated Glomerular Filt Rate > 60; Glucose Random 103 mg/dL (60-115); Potassium 4.2 mmol/L (3.3-5.1); Sodium 126 mmol/L (135-145)
[2020-12-23] VITALS (7 sets, daily range): BP systolic 97–122; BP diastolic 66–88; PULSE 82–91; RESP 18; TEMP 35.8–36.6; O2SAT 96–100; BMI 29.0
[2020-12-23 07:11] LABS: Anion Gap 12 (12-20); Blood Urea Nitrogen 9 mg/dL (9-16); Calcium 8.8 mg/dL (8.4-10.2); Carbon Dioxide 23 mmol/L (22-29); Chloride 95 mmol/L (96-108); Creatinine Clr Calc Pharmacy 129.6; Estimated Glomerular Filt Rate > 60; Glucose Random 110 mg/dL (60-115); Potassium 4.1 mmol/L (3.3-5.1); Sodium 126 mmol/L (135-145)
[2020-12-23] MEDS: Sodium Chloride Tab 1 GM TABLET 2 GM PO ×3 (08:30→20:05)
[2020-12-23] MEDS: Dabigatran Etexilate Mesylate 150 MG CAPSULE PO ×2 (08:30→20:05)
[2020-12-23] MEDS: Metoprolol Succinate ER 50 MG TAB.ER.24H PO (08:30)
[2020-12-23] MEDS: 0.9 % Sodium Chloride Flush 3 ML SYRINGE IVFLUSH ×3 (08:31→20:05)
--- NOTE | 2020-12-23 13:50 | P.PNIM_ITS ---
Subjective Subjective Date of Service: 12/23/20 Interval History: seen and examined this AM reports feeling better overall but concerned about ambulation, requests PT Review of Systems General - no fevers or chills Cardiovascular - no chest pain Respiratory - no shortness of breath or cough Abdominal- no abdominal pain, nausea, vomiting, diarrhea Physical Exam Vital Signs: Vital Signs: Last Vital Signs Temp 96.4 F L 12/23/20 11:30 Pulse 84 12/23/20 12:36 Resp 18 12/23/20 11:30 BP 97/75 12/23/20 12:36 Pulse Ox 96 12/23/20 12:36 Body Mass Index 29.0 Const: Other: General - no acute distress, appears comfortable Cardiovascular - regular rate and rhythm, S1-S2 Lungs - normal respiratory effort, clear to auscultation bilaterally, no wheezing Abdomen - soft, nontender, no rebound or guarding Extremities - no edema bilaterally Neuro - awake and alert, no focal deficits Objective Data Active Medications Cyclobenzaprine HCl (Cyclobenzaprine Hcl 10 Mg Tablet) 10 mg PO TID PRN PRN Reason: Muscle Spasm Last Admin: 12/22/20 22:17 Dose: 10 mg Documented by: AMOR Dabigatran (Dabigatran Etexilate Mesylate 150 Mg Capsule) 150 mg PO BID [facility] Last Admin: 12/23/20 08:30 Dose: 150 mg Documented by: YANNA Metoprolol Succinate (Metoprolol Succinate Er 50 Mg Tab.Er.24h) 50 mg PO DAILY [facility]; Protocol Last Admin: 12/23/20 08:30 Dose: 50 mg Documented by: YANNA Pharmacy Consult (Consult Rx Perform Med Rec) 1 each MISCELLANE ONCE PRN PRN Reason: Consult order Sodium Chloride (0.9 % Sodium Chloride Flush 3 Ml Syringe) 3 ml IVFLUSH QSHIFT [facility] Last Admin: 12/23/20 08:31 Dose: 3 ml Documented by: YANNA Sodium Chloride (Sodium Chloride Tab 1 Gm Tablet) 2 gm PO TID [facility] Last Admin: 12/23/20 08:30 Dose: 2 gm Documented by: YANNA Labs CBC & Chem 7: 12/22/20 05:59 12/23/20 06:14 Labs: Laboratory Results - last 24 hr 12/22/20 12/22/20 12/23/20 15:12 19:08 06:14 Anion Gap 13 12 12 Estim Creat Clear Calc 101.9 110.0 129.6 Estimated GFR > 60 > 60 > 60 Random Glucose 104 103 110 Calcium 8.6 8.6 8.8 Assessment and Plan (1) Hyponatremia: Status: Acute Assessment and Plan: 70-year-old man admitted to the ICU initially with severe hyponatremia secondary to beer potomania. He had fallen at home after drinking 6-8 beers and taking cyclobenzaprine which he was given for back pain recently.? Initial sodium was 109. Hyponatremia likely beer potomania contiue salt tab SNa stuck at 126, will involve nephrology Paroxysmal atrial fibrillation Continue metoprolol and Pradaxa Alcohol abuse Care team consultation CIWA, no signs of withdrawal at this time Weakness pt eval Full Code DVT pptx, Eliquis dispo: home once SNa around 130 Quality Stroke Does the patient have a stroke diagnosis?: No VTE Prior VTE?: No VTE Risk Level:: Medical - low VTE Device Contraindication: Treatment Not Tolerated VTE Drug Contraindication: N/A - Med Ordered
[2020-12-23] MEDS: Cyclobenzaprine HCl 10 MG TABLET PO (20:04)
[2020-12-24] VITALS (9 sets, daily range): BP systolic 108–146; BP diastolic 61–97; PULSE 75–95; RESP 14–19; TEMP 35.6–36.8; O2SAT 98–100
[2020-12-24 07:20] LABS: Anion Gap 15 (12-20); Blood Urea Nitrogen 7 mg/dL (9-16); Calcium 9.1 mg/dL (8.4-10.2); Carbon Dioxide 25 mmol/L (22-29); Chloride 93 mmol/L (96-108); Creatinine Clr Calc Pharmacy 118.6; Estimated Glomerular Filt Rate > 60; Glucose Random 112 mg/dL (60-115); Potassium 4.8 mmol/L (3.3-5.1); Sodium 128 mmol/L (135-145)
[2020-12-24] MEDS: Sodium Chloride Tab 1 GM TABLET 2 GM PO (07:58)
[2020-12-24] MEDS: Metoprolol Succinate ER 50 MG TAB.ER.24H PO (07:59)
[2020-12-24] MEDS: Dabigatran Etexilate Mesylate 150 MG CAPSULE PO ×2 (07:59→20:51)
[2020-12-24] MEDS: 0.9 % Sodium Chloride Flush 3 ML SYRINGE IVFLUSH ×2 (07:59→20:51)
--- NOTE | 2020-12-24 10:27 | PM.CNNEP ---
History of Present Illness Reason for Consult Consult date: 12/24/20 Reason for consult: Hyponatremia Chief Complaint Chief complaint: Hyponatremia History of Present Illness Narrative: The pt is a 70 yo man who presented with symptomatic profound hyponatremia several days ago, with sodium 109. He was treated appropriately with 3 percent saline; his rate of correction has been appropriate but he remains hyponatremic. He was not eating and was drinking beer. His urine sodium was low and osm was 256 or so. He was given normal saline and also started on sodium tablets. He has a hx of afib and is on pradaxa. He also has a hx of HTN. He was not taking any diuretics or NSAIDS but did have recent back pain related to DJD. Presently he feels well with nausea, dizziness, blurred vision. His balance has significantly improved He has a hx of alcoholism and was sober for 16 years but relapsed during the pandemic. He has financial troubles and has been depressed. He is on bupropion for depression which he recently resumed and was started on a muscle relaxant for his back.l Review of Systems Review of Systems General - no fevers or chills Cardiovascular - no chest pain Respiratory - no shortness of breath or cough Abdominal- no abdominal pain, nausea, vomiting, diarrhea Yes all other systems are reviewed and are negative Constitutional: Reports no additional constitutional complaints Cardiovascular: Reports no additional cardiovascular complaints Respiratory: Reports no additional respiratory complaints Musculoskeletal: Reports no additional musculoskeletal complaints, Denies numbness and Denies tingling Denies lack of coordination, Denies focal weakness, Denies numbness, Denies Other visual disturbances, Denies convulsions, Denies seizure-like activity, Denies Sensory deficit (Neuro) and Denies tingling Psychiatric: Reports no additional psychiatric complaints [facility] Past Medical History Medical History (Updated 12/21/20 @ 13:37 by Lino Calix MD) Diastolic CHF HTN (hypertension) Social History Social History Household Members: None Housing: House Do you presently have visiting nurse or other home services: No Patient Tobacco Use Status: Current someday Tobacco user Tobacco use type: Cigarette Smoked in Last 30 Days: Yes e-Cigarette/Vaping Use: Never Used Patient Interested in Nicotine Replacement: Yes Use of substances other than those prescribed or required for medical reasons: No Currently Displaying Signs/Symptoms of Drug Intoxication Withdrawal: No Have you been hit, kicked, punched, or otherwise hurt by someone within the past year? If so, by whom?: No Do you feel safe in your current relationship?: No Current Relationship Is there a partner from a previous relationship who is making you feel unsafe now?: No Are you made to feel afraid or neglected: No Advance Directives: No Advance Directives Information Provided: No (declined) Advance Directives on File: No Do you have thoughts of harming others: None Do you have a plan to hurt others: No Plan Recently lost weight without trying: No Eating poorly because of decreased appetite: No Nutrition Risks: No Nutritional Risk Poor oral hygiene: No service: No Current occupational status: unemployed Meds Allergies Allergy/AdvReac Type Severity Reaction Status Date / Time Sulfa (Sulfonamide Allergy Unknown UNKNOWN Verified 12/20/20 03:49 Antibiotics) [SULFA (SULFONAMIDE ANTIBIOTICS)] Active Medications: Current Medications Cyclobenzaprine HCl (Cyclobenzaprine Hcl 10 Mg Tablet) 10 mg PO TID PRN PRN Reason: Muscle Spasm Last Admin: 12/23/20 20:04 Dose: 10 mg Documented by: Dabigatran (Dabigatran Etexilate Mesylate 150 Mg Capsule) 150 mg PO BID [facility] Last Admin: 12/24/20 07:59 Dose: 150 mg Documented by: Metoprolol Succinate (Metoprolol Succinate Er 50 Mg Tab.Er.24h) 50 mg PO DAILY [facility]; Protocol Last Admin: 12/24/20 07:59 Dose: 50 mg Documented by: Pharmacy Consult (Consult Rx Perform Med Rec) 1 each MISCELLANE ONCE PRN PRN Reason: Consult order Sodium Chloride (0.9 % Sodium Chloride Flush 3 Ml Syringe) 3 ml IVFLUSH QSHIFT [facility] Last Admin: 12/24/20 07:59 Dose: 3 ml Documented by: Sodium Chloride (Sodium Chloride Tab 1 Gm Tablet) 2 gm PO TID [facility] Last Admin: 12/24/20 07:58 Dose: 2 gm Documented by: Home Medications Medication Instructions Recorded Confirmed Last Taken Type amlodipine 10 mg tablet 1 tab PO DAILY 12/20/20 12/20/20 12/19/20 09:00 History bupropion HCl 150 mg tablet,12 hr 1 tab PO BID 12/20/20 Unknown History sustained-release cyclobenzaprine 10 mg tablet 1 tab PO TID 12/20/20 12/20/20 12/19/20 13:00 History dabigatran etexilate 150 mg 1 cap PO BID 12/20/20 12/20/20 12/19/20 09:00 History capsule (Pradaxa) lisinopril 40 mg tablet 1 tab PO DAILY 12/20/20 12/20/20 12/19/20 09:00 History metoprolol succinate 100 mg 1 tab PO DAILY 12/20/20 12/20/20 12/19/20 09:00 History tablet,extended release 24 hr Physical Exam Vital Signs: Last Vital Signs Temp 96.0 F L 12/24/20 07:57 Pulse 95 12/24/20 07:59 Resp 14 12/24/20 07:57 BP 122/79 12/24/20 07:59 Pulse Ox 100 12/24/20 07:57 Body Mass Index 29.0 Const Other: General - no acute distress, appears comfortable Cardiovascular - regular rate and rhythm, S1-S2 Lungs - normal respiratory effort, clear to auscultation bilaterally, no wheezing Abdomen - soft, nontender, no rebound or guarding Extremities - no edema bilaterally Neuro - awake and alert, no focal deficits General: cooperative, healthy appearing, comfortable, no acute distress, alert, awake and anxious Nutritional Appearance: average body habitus Orientation/consciousness: patient oriented x3 Limitations: no limitations HENMT Head: Yes normal to inspection, Yes normocephalic, Yes atraumatic, No abrasion, No contusion and No scalp tenderness Ears: hearing grossly normal bilaterally General nose exam: Normal external nose present Face and sinus: Yes normal facial exam Mouth: Normal oral and palatal mucosa present Eyes General: appearance normal, both eyes and all related structures Sclerae: sclerae normal EOM: EOMs intact bilaterally Neck Neck: Yes normal visual inspection, Yes full ROM, Yes no lymphadenopathy, Yes trachea midline, Yes supple and Yes no JVD Thyroid: Thyroid normal Chest Chest palpation & inspection: normal inspection of the chest and normal palpation of entire chest wall Resp Effort & Inspection: normal respiratory effort, able to speak in complete sentences and no respiratory distress Auscultation: clear to auscultation bilaterally Cardio Jugular venous distension: no JVD Rate: regular rate (irregular rhythm, afib) Rhythm: regular rhythm Heart sounds: no gallops, no murmurs, no rubs and normal S1 and S2 GI Inspection: Yes normal to inspection Palpation (GI): Soft to palpation, not firm, nontender, no guarding and Other GI palpation findings present ( Nontender) Percussion: Yes normal to percussion Auscultation: normal bowel sounds General: Yes no CVA tenderness Back/Spine/Pelvis Back: no CVA tenderness Skin General skin exam: no rashes or lesions noted Neuro General: patient oriented x3 Sensory Exam: No Sensory deficit (Neuro) Extrem General: Yes normal to inspection, Yes no pedal edema, No clubbing and No cyanosis Results Lab Results Result Diagrams: 12/22/20 05:59 12/24/20 06:37 Lab results: Chemistry 12/21/20 12/21/20 12/22/20 12:45 18:46 05:59 Sodium 121 L 124 L 123 L Potassium 3.7 3.9 3.9 Carbon Dioxide 23 23 21 L BUN 11 12 10 Creatinine 0.83 0.82 0.64 Calcium 8.8 9.2 8.6 D 12/22/20 12/22/20 12/22/20 11:44 15:12 19:08 Sodium 124 L 126 L 126 L Potassium 4.0 4.4 4.2 Carbon Dioxide 22 23 23 BUN 11 12 12 Creatinine 0.77 0.82 0.76 Calcium 8.9 8.6 8.6 12/23/20 12/24/20 06:14 06:37 Sodium 126 L 128 L Potassium 4.1 4.8 Carbon Dioxide 23 25 BUN 9 7 L Creatinine 0.65 0.71 Calcium 8.8 9.1 Hematology 12/22/20 05:59 WBC 5.9 Hgb 13.8 L D Plt Count 213 Assessment and Plan (1) Hyponatremia: Status: Acute Acute on likely chronic hyponatremia in a pt not eating who was hypovolemic and drinking heavily, mostly beer Urine sodium low consistent with hypovolemia on admission. Now appears euvolemic Has been having back pain which could be a stimulus for SIADH and there may be more than one thing going on Sodium tablets have no role in treatment of hyponatremia and would stop them now-he is clearly euvolemic and has a remote hx of diastolic dysfunction. Repeat urine studies: urine sodium and osm Stop sodium tablets please Fluid restrict Keep patient until tomorrow at least and we get repeat studies If sodium in urine is up and osm is up, then trial of urea Procedures Date of Service Date of Service: 12/24/20
--- NOTE | 2020-12-24 11:48 | P.PNIM_ITS ---
Subjective Subjective Date of Service: 12/24/20 Interval History: seen and examined this AM feels well, hoping for d/c over the next 1-2 days worked with PT and denied any balance issues Review of Systems General - no fevers or chills Cardiovascular - no chest pain Respiratory - no shortness of breath or cough Abdominal- no abdominal pain, nausea, vomiting, diarrhea Review of Systems: Yes all other systems are reviewed and are negative (except above) Physical Exam Vital Signs: Vital Signs: Last Vital Signs Temp 96.3 F L 12/24/20 11:30 Pulse 86 12/24/20 11:30 Resp 17 12/24/20 11:30 BP 108/84 12/24/20 11:30 Pulse Ox 100 12/24/20 11:30 Body Mass Index 29.0 Const: Other: General - no acute distress, appears comfortable Cardiovascular - regular rate and rhythm, S1-S2 Lungs - normal respiratory effort, clear to auscultation bilaterally, no wheezing Abdomen - soft, nontender, no rebound or guarding Extremities - no edema bilaterally Neuro - awake and alert, no focal deficits Objective Data Active Medications Cyclobenzaprine HCl (Cyclobenzaprine Hcl 10 Mg Tablet) 10 mg PO TID PRN PRN Reason: Muscle Spasm Last Admin: 12/23/20 20:04 Dose: 10 mg Documented by: WINSOME Dabigatran (Dabigatran Etexilate Mesylate 150 Mg Capsule) 150 mg PO BID [facility] Last Admin: 12/24/20 07:59 Dose: 150 mg Documented by: YANNA Metoprolol Succinate (Metoprolol Succinate Er 50 Mg Tab.Er.24h) 50 mg PO DAILY [facility]; Protocol Last Admin: 12/24/20 07:59 Dose: 50 mg Documented by: YANNA Pharmacy Consult (Consult Rx Perform Med Rec) 1 each MISCELLANE ONCE PRN PRN Reason: Consult order Sodium Chloride (0.9 % Sodium Chloride Flush 3 Ml Syringe) 3 ml IVFLUSH QSHIFT [facility] Last Admin: 12/24/20 07:59 Dose: 3 ml Documented by: YANNA Labs CBC & Chem 7: 12/22/20 05:59 12/24/20 06:37 Labs: Laboratory Results - last 24 hr 12/24/20 06:37 Anion Gap 15 Estim Creat Clear Calc 118.6 Estimated GFR > 60 Random Glucose 112 Calcium 9.1 Assessment and Plan Assessment and Plan: 70-year-old man admitted to the ICU initially with severe hyponatremia secondary to beer potomania. He had fallen at home after drinking 6-8 beers and taking cyclobenzaprine which he was given for back pain recently.? Initial sodium was 109. Hyponatremia multifactorial nephrology consult appreciated - d/c salt tabs repeat urine studies SNa 128 recheck it tomorrow, if near 130 -- likely home Paroxysmal atrial fibrillation Continue metoprolol and Pradaxa Alcohol abuse Care team consultation CIWA, no signs of withdrawal at this time Weakness pt eval recommends home with services recommended Full Code DVT pptx, Eliethan dispo: home once SNa around 130 Quality Stroke Does the patient have a stroke diagnosis?: No VTE Prior VTE?: No VTE Risk Level:: Medical - low VTE Device Contraindication: Treatment Not Tolerated VTE Drug Contraindication: N/A - Med Ordered
--- NOTE | 2020-12-24 11:59 | MHC.CM.PN ---
updated imm as pt expected to be dcd this weekend referral to [facility] and per pt request financial counselor pt confirms needing transport home
[2020-12-24 14:31] LABS: Osmolality Urine 374 mosm/kg (373-1093)
--- NOTE | 2020-12-24 15:58 | MHC.CARE ---
CARE Team met with patient secondary to consult for depression. Pt discussed psychosocial stressors like housing, lack of social supports, and isolation. Pt reports feeling depressed and overwhelmed. CARE Team offered to provide a referral to outpatient providers which pt was in agreement with. Pt reported drinking alcohol recently after sixteen years of sobriety and has met with the Recovery team. CARE Team discussed plan with JIMBO Hernandez who was in agreement with outpatient referral. CARE Team will consult with psychiatry about patient as well.
--- NOTE | 2020-12-24 17:28 | P.CNPS_ITS ---
History of Present Illness Date of Service: 12/24/20 Chief Complaint: Hyponatremia Reason for Consult: medication Requesting physician: Brandon Hagen Discussed with referring provider: No Sources of Information: patient interviewed, chart reviewed and crisis/core team assessment reviewed HPI Narrative: Tayo is a 70 years old male who presented to [facility] due to falling in the street in context of inebriation, crawled to his driveway, eventually shouting for help, and a neighbor called EMS. He reports he was on his way back from package store when he fell after getting out of his vehicle. Denied hitting his head or losing consciousness. Initially admitted to the ICU with severe hyponatremia secondary to beer potomania. He reported drinking 6-8 beers and taking cyclobenzaprine (prescribed for back pain recently). Had been drinking daily, relapsed after 16 yr of sobriety. Initial sodium was 109. Recently went to ED at [facility] last week and was told his sodium was low but was discharged home. Psych consult requested due to medication.? I evaluated the pt this evening and upon inquiry he reports he is ?depressed.? Says his sleep is ?horrible,? has difficulty falling and staying asleep. Precipitating factors include that he left his job at the beginning of the pandemic due to increased stress, ?didnt feel i was getting support,? felt ?burnt out.? Had been collecting unemployment but it just ended this week. Has financial stress, deferring mortgage payment, doesnt qualify for food stamps or [employer]. He is looking into [email or web address]. Reports feeling isolated, denies having family or friend support. Had been involved in AA in the past but not currently and has not been in touch with his sponsor. Endorses suicidal ideation, feels ?about ready to drive off the chad,? however denies specific plans or intent upon inquiry today. He has sx of PTSD, including intrusive thoughts from traumatic events. States a year and a half ago he had a roommate who was a close friend, found him on from heroin overdose, now doesnt go into that room. He is tearful during interview, says he has ?pulled away? from supports, attributes this to relapsing on alcohol during the pandemic. Has sx of anxiety and irritability. No aggression or violent behaviors. Denies hx of psychosis. No hx of manic episodes endorsed, hx of impulsivity in the form of alcohol use. He is future oriented, wants to obtain an OP therapist and VNA services. He is open to treating his alcohol use disorder, denies having been on MAT. He met with the recovery team and CARE team to discuss referrals for OP services. Per manager staffing, CIWA scores have been 1-2. Current medications: bupropion SR 150 mg BID (from PCP, has been non-adherent, reports lack of efficacy, started 2019).? Past med trials: trazodone (morning sedation), unisom (moderate benefit). PMH: -AFib on Pradaxa, HTN, diastolic CHF and daily ETOH use SH: -He says he lives alone and is very isolated. Has his house up for sale due to financial stress, deferring mortgage payments. 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 Was on unemployment but recently ended. Collects SSI. PPH: -No hx of IPLOC or CCS evals. No OP psych services Medical Evaluation Reviewed: Yes [facility] Medical History (Updated 12/25/20 @ 08:56 by Lise Palomo NP) Diastolic CHF HTN (hypertension) Diagnostics Vital Signs (24Hr): Vital Signs - 24 hr 12/23/20 19:35 12/24/20 00:32 12/24/20 03:52 Temperature 98 F 97.6 F 97.9 F Pulse Rate 86 80 88 Respiratory Rate 18 18 18 Blood Pressure 110/66 127/73 132/61 Pulse Oximetry 100 98 98 12/24/20 07:57 12/24/20 07:59 12/24/20 10:52 Temperature 96.0 F L Pulse Rate 95 95 95 Respiratory Rate 14 Blood Pressure 122/79 122/79 122/79 Pulse Oximetry 100 12/24/20 11:30 12/24/20 15:09 Temperature 96.3 F L 97.7 F Pulse Rate 86 89 Respiratory Rate 17 19 Blood Pressure 108/84 131/85 Pulse Oximetry 100 100 Body Mass Index 29.0 Labs Results: 12/22/20 05:59 12/25/20 06:09 Labs: Laboratory Results - last 48 hr 12/22/20 12/23/20 12/24/20 19:08 06:14 06:37 Sodium 126 L 126 L 128 L Potassium 4.2 4.1 4.8 Chloride 95 L 95 L 93 L Carbon Dioxide 23 23 25 Anion Gap 12 12 15 BUN 12 9 7 L Creatinine 0.76 0.65 0.71 Estim Creat Clear Calc 110.0 129.6 118.6 Estimated GFR > 60 > 60 > 60 Random Glucose 103 110 112 Calcium 8.6 8.8 9.1 Urine Osmolality Ur Random Sodium 12/24/20 12/24/20 13:50 13:50 Sodium Potassium Chloride Carbon Dioxide Anion Gap BUN Creatinine Estim Creat Clear Calc Estimated GFR Random Glucose Calcium Urine Osmolality 374 Ur Random Sodium 69.0 Imaging Radiology Impressions: ITS Impressions Cervical Spine CT 12/20/20 00:35 IMPRESSION: No acute intracranial pathology. No cervical spine fracture or malalignment. Head CT 12/20/20 00:35 IMPRESSION: No acute intracranial pathology. No cervical spine fracture or malalignment. Mental Status Exam Mental Status Exam Narrative: A&O. In hospital gown, unkempt but not malodorous, normal body habitus. Poor eye contact, attentive. No Tics or Tremors. No abnormal involuntary movements. Calm, cooperative, engaged. Non-pressured speech, spo ntaneous with regular rate and rhythm, normal volume and prosody. No prolonged speech latency or dysarthria. Mood is ?depressed,? affect is tearful, dysphoric. Endorses passive SI but denies plan or intent. denies SIB/HI upon inquiry. Denies A/VH or delusional thought content. Thoughts are coherent, organized. No known cognitive or memory impairment. Insight/ Judgment fair and adequate. Medications Medications Current Medications Cyclobenzaprine HCl (Cyclobenzaprine Hcl 10 Mg Tablet) 10 mg PO TID PRN PRN Reason: Muscle Spasm Last Admin: 12/23/20 20:04 Dose: 10 mg Documented by: Dabigatran (Dabigatran Etexilate Mesylate 150 Mg Capsule) 150 mg PO BID [facility] Last Admin: 12/24/20 07:59 Dose: 150 mg Documented by: Metoprolol Succinate (Metoprolol Succinate Er 50 Mg Tab.Er.24h) 50 mg PO DAILY [facility]; Protocol Last Admin: 12/24/20 07:59 Dose: 50 mg Documented by: Pharmacy Consult (Consult Rx Perform Med Rec) 1 each MISCELLANE ONCE PRN PRN Reason: Consult order Sodium Chloride (0.9 % Sodium Chloride Flush 3 Ml Syringe) 3 ml IVFLUSH QSHIFT [facility] Last Admin: 12/24/20 07:59 Dose: 3 ml Documented by: Allergies Allergies Allergy/AdvReac Type Severity Reaction Status Date / Time Sulfa (Sulfonamide Allergy Unknown UNKNOWN Verified 12/20/20 03:49 Antibiotics) [SULFA (SULFONAMIDE ANTIBIOTICS)] Assessment & Plan Assessment & Plan (1) Atrial fibrillation: Status: Acute Code(s): I48.91 - Unspecified atrial fibrillation (2) Alcohol use disorder, moderate, dependence: Status: Acute Code(s): F10.20 - Alcohol dependence, uncomplicated (3) MDD (major depressive disorder), recurrent episode: Status: Acute Code(s): F33.9 - Major depressive disorder, recurrent, unspecified (4) PTSD (post-traumatic stress disorder): Status: Acute Code(s): F43.10 - Post-traumatic stress disorder, unspecified Assessment and Plan: Tayo is a 70 years old male who presented to [facility] due to falling [place] the [place] in context of inebriation. He is presenting with sx of depressed mood, anxiety, intrusive thoughts, hyposomnia, and passive SI. He met with CARE team to discuss referrals for OP treatment and is open to trialing medication for alcohol use disorder to manage urges, as he does not want to drink. Had been drinking daily, has not engaged with AA but has a sponsor. No psychotic sx reported. No hx of manic episodes endorsed. No other substance use. Says he feels safe. Discussed trialing remeron, as all serotonergic antidepressants are associated with hyponatremia, but association lowest with duloxetine, venlafaxine, and mirtazapine. Plan: 1. Start remeron 15 mg QHS for sleep onset, anxiety, and depression. 2. start naltrexone 50 mg QD for ETOH use disorder, reviewed risks and benefits 3. follow up with OP psych referrals from CARE team -Continue monitoring medically. -Patient can when stable initial treatments ordered ? Greater than 50% of the session was spent on counseling and/or coordination of care
[2020-12-24] MEDS: Cyclobenzaprine HCl 10 MG TABLET PO (20:50)
[2020-12-24] MEDS: Mirtazapine 15 MG TABLET PO (20:51)
[2020-12-25] VITALS (11 sets, daily range): BP systolic 97–145; BP diastolic 42–91; PULSE 83–162; RESP 14–17; TEMP 35.8–36.9; O2SAT 96–100; BMI 29.0
--- NOTE | 2020-12-25 | ECG_ITS ---
Test Reason : tachycardia Blood Pressure : / mmHG Vent. Rate : 105 BPM Atrial Rate : 113 BPM P-R Int : 000 ms QRS Dur : 084 ms QT Int : 334 ms P-R-T Axes : 000 -29 003 degrees QTc Int : 441 ms Atrial fibrillation with rapid ventricular response Inferior infarct , age undetermined Abnormal ECG When compared with ECG of 19-DEC-2020 23:36, Heart rate has increased Nonspecific ST abnormality is no longer Present Referred By: Jada Miguel Electronically Signed By:CANDI CHRISTENSEN
[2020-12-25 07:05] LABS: Anion Gap 12 (12-20); Blood Urea Nitrogen 7 mg/dL (9-16); Calcium 9.5 mg/dL (8.4-10.2); Carbon Dioxide 28 mmol/L (22-29); Chloride 95 mmol/L (96-108); Creatinine Clr Calc Pharmacy 120.3; Estimated Glomerular Filt Rate > 60; Glucose Random 112 mg/dL (60-115); Potassium 5.1 mmol/L (3.3-5.1); Sodium 130 mmol/L (135-145)
[2020-12-25] MEDS: Naltrexone HCl 50 MG TABLET PO (09:12)
[2020-12-25] MEDS: Dabigatran Etexilate Mesylate 150 MG CAPSULE PO ×2 (09:12→19:57)
[2020-12-25] MEDS: Metoprolol Succinate ER 50 MG TAB.ER.24H PO ×2 (09:12→14:05)
[2020-12-25] MEDS: 0.9 % Sodium Chloride Flush 3 ML SYRINGE IVFLUSH ×3 (09:14→19:58)
--- NOTE | 2020-12-25 11:16 | P.DS_ITS ---
DS: Providers Provider Date of Service: 12/25/20 <Jada Miguel NP - Last Filed: 12/26/20 11:33> Date of admission: 12/20/20 02:38 <Jada Miguel NP - Last Filed: 12/26/20 11:33> Primary care physician: Unknown Physician <Jada Miguel NP - Last Filed: 12/26/20 11:33> Consults: 12/22/20 12:46 Consult to Care Team Routine Comment: Reason for consultation: EtOH use 12/23/20 11:12 Consult to Nephrology Routine Consulting Provider: Lily Bell Reason for consultation: hyponatremia Has provider been notified: No 12/24/20 11:59 Consult to Care Team Routine Comment: Reason for consultation: depression <Jada Miguel NP - Last Filed: 12/26/20 11:33> Attending physician on discharge: Harshad Mcdermott <Jada Miguel NP - Last Filed: 12/26/20 11:33> Discharging clinician: Jada Miguel <Jada Miguel NP - Last Filed: 12/26/20 11:33> DS: Diagnosis Discharge Diagnosis (1) Atrial fibrillation: Status: Acute <Jada Miguel NP - Last Filed: 12/26/20 11:33> (2) Hyponatremia: Status: Acute <Jada Miguel NP - Last Filed: 12/26/20 11:33> DS: Summary Hospital Course Hospital Course: HP as per admitting provider Patient is a 70-year-old male with a past medical history of AFib on Pradaxa, HTN, diastolic CHF and daily ETOH use who was BIBA after falling in his driveway at 8pm last evening.? Patient states he ran out of beer so after drinking 6-8 beers and after taking 10 mg of cyclobenzaprine every 8 hours today, he went to the store to buy more.? He states that when he pulled and was driveway and exited his vehicle, he took a few steps and was very unsteady on his feet, he fell landing on his buttocks and his side, he denies hitting his head or losing consciousness.? He states he tried to crawl to his front door but ended up screaming to get the attention of his neighbor who called the police.? He states he has been feeling fatigued and off balance for about 4-5 days but it was getting worse today. He states he has also had 4-5 days of brown, watery diarrhea, he denies any bloody or black stools.? He also denies any chest pain, dizziness, headache, seizure activity, nausea vomiting or fevers.? Pt states he has never had this happen before.?He states he did go to the emergency room at [facility] last week and they told him his sodium was low but they discharged him home.? He also says his low back was hurting him so we went to urgent care on Sunday of last week where he was given 10 mg of cyclobenzaprine and told to take them every 8 hours which she has been doing.? He has also been drinking his typical 6-8 beers [employer] brand beers per day.? He states is the only alcohol you drinks a but he drinks a pretty consistently could because he is concerned about what would happen if he stopped.? He says he lives alone and is very isolated. Pt's PCP is Dr Miguel Shields in [place]. In the emergency department, patient's labs are remarkable for NA 109, Cl 77, bicarb 17, serum osmolality 232, total bili 1.8, AST 64, ALT 50, alk-phos 132, urine osmolality 282, urine sodium <20, ETOH <10, covid negative. EKG showed afib with hr controlled, no st or t wave changes. Head and neck CT unremarkable. Patient to be transferred to the ICU for hyponatremia . Hyponatremia. Secondary to beer potomania. Seen and evaluated by Nephrology. Initially treated with salt tabs. Sodium slowly came up at the appropriate rate, now at 130 and patient is safe to go home. Recheck sodium next week. He has been encouraged to stop drinking. Paroxysmal atrial fibrillation. Had intermittent episodes of rapid ventricular response. His Pradaxa was also continued. His heart rate was up and down likely because he was only on 50mg of metoprolol initially when he was in the ICU, He was put back on 100mg and heart rate was better. He is scheduled for cardioversion at [facility] next week. Alcohol abuse. Seen and evaluated by the care team while inpatient and offered outpatient referral, patient agreed and will hopefully have success in alcohol cessation as he had been sober for 15 years prior. He will also be home with not tracks alone and Remeron for sleep. <Jada Miguel NP - Last Filed: 12/26/20 11:33> Time Spent with Patient Time attestation: Total time spent providing and/or coordinating discharge services: <Jada Miguel NP - Last Filed: 12/26/20 11:33> Discharge coordination time: Greater than 30 minutes <Jada Miguel NP - Last Filed: 12/26/20 11:33> Quality: Stroke Does the patient have a stroke diagnosis?: No <Jada Miguel NP - Last Filed: 12/26/20 11:33> Physical Exam Vital Signs: Vital Signs: Last Vital Signs Temp 97 F 12/25/20 07:31 Pulse 128 H 12/25/20 09:12 Resp 16 12/25/20 07:31 BP 142/78 H 12/25/20 09:12 Pulse Ox 99 12/25/20 07:31 Body Mass Index 29.0 <Jada Miguel NP - Last Filed: 12/26/20 11:33> Appearing in no acute distress head is normocephalic atraumatic eyes pupils are PERRLA sclera is anicteric mouth throat mucous membranes are intact and moist neck is supple no lymphadenopathy, no JVD noted lung sounds are clear to auscultation heart regular rate rhythm, clear S1, S2 positive bowel sounds, abdomen is soft, nontender neuro patient is alert x3, no focal deficits <Jada Miguel NP - Last Filed: 12/26/20 11:33> DS: Data Data Completed and Pending Labs on day of discharge: Laboratory Results - last 24 hr 12/24/20 12/24/20 12/25/20 13:50 13:50 06:09 Sodium 130 L Potassium 5.1 Chloride 95 L Carbon Dioxide 28 Anion Gap 12 BUN 7 L Creatinine 0.70 Estim Creat Clear Calc 120.3 Estimated GFR > 60 Random Glucose 112 Calcium 9.5 Urine Osmolality 374 Ur Random Sodium 69.0 <Jada Miguel NP - Last Filed: 12/26/20 11:33> Discharge Plan Discharge Anticipated Discharge Date/Time: 12/26/20 11:31 <Jada Miguel NP - Last Filed: 12/26/20 11:33> Patient Disposition: Home, Self-Care <Jada Miguel NP - Last Filed: 12/26/20 11:33> Discharge Diagnosis: Atrial fibrillation with rapid ventricular response Hyponatremia Alcohol abuse <Jada Miguel NP - Last Filed: 12/26/20 11:33> Atrial fibrillation with rapid ventricular response Hyponatremia Alcohol abuse <Harshad Mcdermott MD - Last Filed: 01/07/21 15:37> Referrals: Miguel Castle MD [Primary Care Provider] - 1 Week <Jada Miguel NP - Last Filed: 12/26/20 11:33> Discharge Medications: New naltrexone 50 mg Tablet 50 mg PO DAILY Qty: 30 RF: 0 metoprolol succinate 100 mg Tablet Extended Release 24 Hr 100 mg PO DAILY Qty: 30 RF: 0 mirtazapine 15 mg Tablet 15 mg PO BEDTIME Qty: 30 RF: 0 Continued cyclobenzaprine 10 mg tablet 1 tab PO TID RF: 0 bupropion HCl 150 mg tablet sustained-release 12 hr 1 tab PO BID RF: 0 amlodipine 10 mg tablet 1 tab PO DAILY RF: 0 lisinopril 40 mg tablet 1 tab PO DAILY RF: 0 Pradaxa 150 mg capsule 1 cap PO BID RF: 0 Discontinued metoprolol succinate 100 mg tablet extended release 24 hr 1 tab PO DAILY RF: 0 <Jada Miguel NP - Last Filed: 12/26/20 11:33> Discharge Orders: Discharge Order (Routine); Ordered 12/26/20 Ordered By: Jada Miguel <Jada Miguel NP - Last Filed: 12/26/20 11:33> Diet: advance to usual diet <Jada Miguel NP - Last Filed: 12/26/20 11:33> advance to usual diet <Harshad Mcdermott MD - Last Filed: 01/07/21 15:37> Activity on Discharge: No Running or jogging <Jada Miguel NP - Last Filed: 12/26/20 11:33> No Running or jogging <Harshad Mcdermott MD - Last Filed: 01/07/21 15:37> Stand Alone Forms: Patient Portal Discharge page <Jada Miguel NP - Last Filed: 12/26/20 11:33> Care Plan Goals: Stop drinking alcohol <Jada Miguel NP - Last Filed: 12/26/20 11:33> Health Concerns: Follow up with the primary care provider Your metoprolol has been increased to 100 mg daily <Jada Miguel NP - Last Filed: 12/26/20 11:33> Plan of Treatment: Follow up with the primary care provider Your metoprolol has been increased to 100 mg daily Please heavy labs checked next week <Jada Miguel NP - Last Filed: 12/26/20 11:33> Assessment: see discharge summary I saw patient and discssed finding and plan with [employer] and I agree witht the above <Jada Miguel NP - Last Filed: 12/26/20 11:33> Discharge Date/Time: 12/26/20 17:32 <Jada Miguel NP - Last Filed: 12/26/20 11:33>
--- NOTE | 2020-12-25 15:03 | PM.PNNEP ---
Subjective Subjective Date of Service: 12/25/20 Interval history: seen and examined this AM feels well, Physical Exam Vital Signs: Vital Signs: Last Vital Signs Temp 96.4 F L 12/25/20 12:00 Pulse 132 H 12/25/20 14:05 Resp 16 12/25/20 12:00 BP 131/76 12/25/20 14:05 Pulse Ox 100 12/25/20 12:00 Body Mass Index 29.0 Appearing in no acute distress ?head is normocephalic atraumatic ?eyes pupils are PERRLA sclera is anicteric ?mouth throat mucous membranes are intact and moist ?neck is supple no lymphadenopathy, no JVD noted ?lung sounds are clear to auscultation ?heart regular rate rhythm, clear? S1, S2 ?positive bowel sounds, abdomen is soft, nontender ?neuro patient is alert x3, no focal deficits Objective Data Labs CBC & Chem 7: 12/22/20 05:59 12/25/20 06:09 Labs: Laboratory Results - last 24 hr 12/25/20 06:09 Sodium 130 L Potassium 5.1 Chloride 95 L Carbon Dioxide 28 Anion Gap 12 BUN 7 L Creatinine 0.70 Estim Creat Clear Calc 120.3 Estimated GFR > 60 Random Glucose 112 Calcium 9.5 Procedures Date of Service Date of Service: 12/25/20 Assessment & Plan Assessment and plan (1) Hyponatremia: Status: Acute Assessment and Plan: NA is better Can be d/c 's Normal salt diet No Need for out pt renal f/u Time Spent With Patient Time: Total time spent is greater than 50% in coordination of care (as documented) at patient's floor/unit and/or counseling patient: Progress Note: Quality Stroke Does the patient have a stroke diagnosis?: No
--- NOTE | 2020-12-25 15:35 | PM.IMPN ---
Progress Note: A&P (1) Hyponatremia: Status: Acute <Jada Miguel NP - Last Filed: 12/25/20 15:41> (2) Paroxysmal atrial fibrillation with RVR: Status: Resolved <Jada Miguel NP - Last Filed: 12/25/20 15:41> (3) Alcohol use disorder, moderate, dependence: Assessment and Plan: 70-year-old man admitted to the ICU initially with severe hyponatremia secondary to beer potomania. He had fallen at home after drinking 6-8 beers and taking cyclobenzaprine which he was given for back pain recently.? Initial sodium was 109. Paroxysmal atrial fibrillation. RVR HR with ambulation up to 150's Metoprolol XL increased to 150mg Continue Pradaxa Hyponatremia multifactorial nephrology consult appreciated - d/c salt tabs repeat urine studies SNa 130 Alcohol abuse Care team consultation CIWA, no signs of withdrawal at this time Weakness pt eval recommends home with services recommended Full Code DVT pptx, Pradaxa dispo: home once SNa around [address] Mcdermott <Jada Miguel NP - Last Filed: 12/25/20 15:41> Subjective Subjective Date of Service: 12/25/20 <Jada Miguel NP - Last Filed: 12/25/20 15:41> 01/07/21 <Harshad Mcdermott MD - Last Filed: 01/07/21 15:36> Review of Systems Follow up hyponatremia now with afib rvr Denies chest pain, shortness of breath, nausea, vomiting, diarrhea <Jada Miguel NP - Last Filed: 12/25/20 15:41> Physical Exam Vital Signs: Vital Signs: Last Vital Signs Temp 96.4 F L 12/25/20 12:00 Pulse 132 H 12/25/20 14:05 Resp 16 12/25/20 12:00 BP 131/76 12/25/20 14:05 Pulse Ox 100 12/25/20 12:00 Body Mass Index 29.0 <Jada Miguel NP - Last Filed: 12/25/20 15:41> Appearing in no acute distress lung sounds are clear to auscultation heart IRIR positive bowel sounds, abdomen is soft, nontender neuro patient is alert x3, no focal deficits <Jada Miguel NP - Last Filed: 12/25/20 15:41> Objective Data Current Medications Cyclobenzaprine HCl (Cyclobenzaprine Hcl 10 Mg Tablet) 10 mg PO TID PRN PRN Reason: Muscle Spasm Last Admin: 12/24/20 20:50 Dose: 10 mg Documented by: Dabigatran (Dabigatran Etexilate Mesylate 150 Mg Capsule) 150 mg PO BID [facility] Last Admin: 12/25/20 09:12 Dose: 150 mg Documented by: Metoprolol Succinate (Metoprolol Succinate Er 100 Mg Tab.Er.24h) 100 mg PO DAILY [facility]; Protocol Mirtazapine (Mirtazapine 15 Mg Tablet) 15 mg PO BEDTIME [facility] Last Admin: 12/24/20 20:51 Dose: 15 mg Documented by: Naltrexone HCl (Naltrexone Hcl 50 Mg Tablet) 50 mg PO DAILY [facility] Last Admin: 12/25/20 09:12 Dose: 50 mg Documented by: Pharmacy Consult (Consult Rx Perform Med Rec) 1 each MISCELLANE ONCE PRN PRN Reason: Consult order Sodium Chloride (0.9 % Sodium Chloride Flush 3 Ml Syringe) 3 ml IVFLUSH QSHIFT [facility] Last Admin: 12/25/20 14:16 Dose: 3 ml Documented by: <Jada Miguel NP - Last Filed: 12/25/20 15:41> Labs CBC & Chem 7: : 12/26/20 06:16 12/26/20 06:16 <Jada Miguel NP - Last Filed: 12/25/20 15:41> Labs: Laboratory Results - last 24 hr 12/25/20 06:09 Anion Gap 12 Estim Creat Clear Calc 120.3 Estimated GFR > 60 Random Glucose 112 Calcium 9.5 <Jada Miguel NP - Last Filed: 12/25/20 15:41> Quality Stroke Does the patient have a stroke diagnosis?: No <Jada Miguel NP - Last Filed: 12/25/20 15:41> VTE Prior VTE?: No <Jada Miguel NP - Last Filed: 12/25/20 15:41> VTE Risk Level:: Medical - low <Jada Miguel NP - Last Filed: 12/25/20 15:41> VTE Device Contraindication: Treatment Not Tolerated <Jada Miguel NP - Last Filed: 12/25/20 15:41> VTE Drug Contraindication: N/A - Med Ordered <Jada Miguel NP - Last Filed: 12/25/20 15:41>
[2020-12-25] MEDS: Mirtazapine 15 MG TABLET PO (19:57)
[2020-12-25] MEDS: Cyclobenzaprine HCl 10 MG TABLET PO (19:58)
[2020-12-26 03:45] VITALS: BP 118/79; PULSE 80; RESP 14; TEMP 36.6; O2SAT 99
[2020-12-26 06:00] VITALS: BMI 29.2
[2020-12-26 07:01] LABS: Hematocrit 39.9 % (42-52); Hemoglobin 14.1 g/dl (14.0-18.0); Mean Corpuscular HGB Conc 35.3 g/dl (31.0-36.0); Mean Corpuscular Hemoglobin 32.6 pg (27.0-33.0); Mean Corpuscular Volume 92.4 fL (80-98); Platelet Count 263 X10*3/uL (160-400); Red Blood Count 4.32 X10*6/uL (4.60-5.80); Red Cell Distribution Width 13.2 % (11.0-16.0); White Blood Count 6.4 X10*3/uL (4.8-10.8)
[2020-12-26 07:26] VITALS: BP 128/83; PULSE 78; RESP 16; O2SAT 100
[2020-12-26 07:28] LABS: Anion Gap 13 (12-20); Blood Urea Nitrogen 8 mg/dL (9-16); Calcium 9.4 mg/dL (8.4-10.2); Carbon Dioxide 28 mmol/L (22-29); Chloride 95 mmol/L (96-108); Creatinine Clr Calc Pharmacy 114.1; Estimated Glomerular Filt Rate > 60; Glucose Random 113 mg/dL (60-115); Potassium 4.6 mmol/L (3.3-5.1); Sodium 131 mmol/L (135-145)
[2020-12-26 08:51] LABS: Magnesium 1.9 mg/dL (1.6-2.6)
[2020-12-26 09:29] VITALS: BP 128/83; PULSE 78
[2020-12-26] MEDS: Cyclobenzaprine HCl 10 MG TABLET PO (09:29)
[2020-12-26] MEDS: Naltrexone HCl 50 MG TABLET PO (09:29)
[2020-12-26] MEDS: 0.9 % Sodium Chloride Flush 3 ML SYRINGE IVFLUSH (09:29)
[2020-12-26] MEDS: Dabigatran Etexilate Mesylate 150 MG CAPSULE PO (09:29)
[2020-12-26] MEDS: Metoprolol Succinate ER 50 MG TAB.ER.24H 150 MG PO (09:29)
[2020-12-26 11:26] VITALS: BP 108/74; PULSE 85; RESP 18; TEMP 36.2; O2SAT 98
--- NOTE | 2020-12-26 11:36 | MHC.CM.PN ---
Patient has been medically cleared for dc to home today, no services. Last IMM addressed on 12/24/2020.
--- NOTE | 2020-12-26 11:41 | MHC.CM.PN ---
CM provided Patient with a taxi voucher for transportation to home.
--- NOTE | 2020-12-26 15:27 | P.DS_ITS ---
DS: Providers Provider Date of Service: 12/26/20 <Jada Miguel NP - Last Filed: 12/26/20 15:30> Date of admission: 12/20/20 02:38 <Jada Miguel NP - Last Filed: 12/26/20 15:30> Primary care physician: Unknown Physician <Jada Miguel NP - Last Filed: 12/26/20 15:30> Consults: 12/22/20 12:46 Consult to Care Team Routine Comment: Reason for consultation: EtOH use 12/23/20 11:12 Consult to Nephrology Routine Consulting Provider: Lily Bell Reason for consultation: hyponatremia Has provider been notified: No 12/24/20 11:59 Consult to Care Team Routine Comment: Reason for consultation: depression <Jada Miguel NP - Last Filed: 12/26/20 15:30> Attending physician on discharge: Harshad Mcdermott <Jada Miguel NP - Last Filed: 12/26/20 15:30> Discharging clinician: Jada Miguel <Jada Miguel NP - Last Filed: 12/26/20 15:30> DS: Diagnosis Discharge Diagnosis (1) Atrial fibrillation: Status: Acute <Jada Miguel NP - Last Filed: 12/26/20 15:30> (2) Alcohol use disorder, moderate, dependence: (3) Hyponatremia: Status: Acute <Jada Miguel NP - Last Filed: 12/26/20 15:30> DS: Summary Hospital Course Hospital Course: HP as per admitting provider Patient is a 70-year-old male with a past medical history of AFib on Pradaxa, HTN, diastolic CHF and daily ETOH use who was BIBA after falling in his driveway at 8pm last evening.? Patient states he ran out of beer so after drinking 6-8 beers and after taking 10 mg of cyclobenzaprine every 8 hours today, he went to the store to buy more.? He states that when he pulled and was driveway and exited his vehicle, he took a few steps and was very unsteady on his feet, he fell landing on his buttocks and his side, he denies hitting his head or losing consciousness.? He states he tried to crawl to his front door but ended up screaming to get the attention of his neighbor who called the police.? He states he has been feeling fatigued and off balance for about 4-5 days but it was getting worse today. He states he has also had 4-5 days of brown, watery diarrhea, he denies any bloody or black stools.? He also denies any chest pain, dizziness, headache, seizure activity, nausea vomiting or fevers.? Pt states he has never had this happen before.?He states he did go to the emergency room at [facility] last week and they told him his sodium was low but they discharged him home.? He also says his low back was hurting him so we went to urgent care on Sunday of last week where he was given 10 mg of cyclobenzaprine and told to take them every 8 hours which she has been doing.? He has also been drinking his typical 6-8 beers [employer] brand beers per day.? He states is the only alcohol you drinks a but he drinks a pretty consistently could because he is concerned about what would happen if he stopped.? He says he lives alone and is very isolated. Pt's PCP is Dr Miguel Shields in [place]. In the emergency department, patient's labs are remarkable for NA 109, Cl 77, bicarb 17, serum osmolality 232, total bili 1.8, AST 64, ALT 50, alk-phos 132, urine osmolality 282, urine sodium <20, ETOH <10, covid negative. EKG showed afib with hr controlled, no st or t wave changes. Head and neck CT unremarkable. Patient to be transferred to the ICU for hyponatremia . Hyponatremia. Secondary to beer potomania. Seen and evaluated by Nephrology. Initially treated with salt tabs. Sodium slowly came up at the appropriate rate, now at 130 and patient is safe to go home. Recheck sodium next week. He has been encouraged to stop drinking. Paroxysmal atrial fibrillation. Had intermittent episodes of rapid ventricular response. His Pradaxa was also continued. His heart rate was up and down likely because he was only on 50mg of metoprolol initially when he was in the ICU, He was put back on 100mg and heart rate was better. He is scheduled for cardioversion at [facility] next week. Alcohol abuse. Seen and evaluated by the care team while inpatient and offered outpatient referral, patient agreed and will hopefully have success in alcohol cessation as he had been sober for 15 years prior. He will also be home with not tracks alone and Remeron for sleep. <Jada Miguel NP - Last Filed: 12/26/20 15:30> Time Spent with Patient Time attestation: Total time spent providing and/or coordinating discharge services: <Jada Miguel NP - Last Filed: 12/26/20 15:30> Discharge coordination time: Greater than 30 minutes <Jada Miguel NP - Last Filed: 12/26/20 15:30 > Quality: Stroke Does the patient have a stroke diagnosis?: No <Jada Miguel NP - Last Filed: 12/26/20 15:30> Physical Exam Vital Signs: Vital Signs: Last Vital Signs Temp 97.2 F 12/26/20 11:26 Pulse 85 12/26/20 11:26 Resp 18 12/26/20 11:26 BP 108/74 12/26/20 11:26 Pulse Ox 98 12/26/20 11:26 Body Mass Index 29.2 <Jada Miguel NP - Last Filed: 12/26/20 15:30> Appearing in no acute distress head is normocephalic atraumatic eyes pupils are PERRLA sclera is anicteric mouth throat mucous membranes are intact and moist neck is supple no lymphadenopathy, no JVD noted lung sounds are clear to auscultation heart regular rate rhythm, clear S1, S2 positive bowel sounds, abdomen is soft, nontender neuro patient is alert x3, no focal deficits <Jada Miguel NP - Last Filed: 12/26/20 15:30> DS: Data Data Completed and Pending Labs on day of discharge: Laboratory Results - last 24 hr 12/26/20 12/26/20 06:16 06:16 WBC 6.4 RBC 4.32 L Hgb 14.1 Hct 39.9 L MCV 92.4 MCH 32.6 MCHC 35.3 RDW 13.2 Plt Count 263 MPV 9.0 L Absolute Nucleated RBC 0.000 Nucleated RBC % (auto) 0.0 Sodium 131 L Potassium 4.6 Chloride 95 L Carbon Dioxide 28 Anion Gap 13 BUN 8 L Creatinine 0.74 Estim Creat Clear Calc 114.1 Estimated GFR > 60 Random Glucose 113 Calcium 9.4 Magnesium 1.9 <Jada Miguel NP - Last Filed: 12/26/20 15:30> Discharge Plan Discharge Anticipated Discharge Date/Time: 12/26/20 11:31 <Jada Miguel NP - Last Filed: 12/26/20 15:30> Patient Disposition: Home, Self-Care <Jada Miguel NP - Last Filed: 12/26/20 15:30> Discharge Diagnosis: Atrial fibrillation with rapid ventricular response Hyponatremia Alcohol abuse <Jada Miguel NP - Last Filed: 12/26/20 15:30> Atrial fibrillation with rapid ventricular response Hyponatremia Alcohol abuse <Harshad Mcdermott MD - Last Filed: 01/07/21 15:35> Referrals: Miguel Castle MD [Primary Care Provider] - 1 Week <Jada Miguel NP - Last Filed: 12/26/20 15:30> Discharge Medications: New naltrexone 50 mg Tablet 50 mg PO DAILY Qty: 30 RF: 0 metoprolol succinate 100 mg Tablet Extended Release 24 Hr 100 mg PO DAILY Qty: 30 RF: 0 mirtazapine 15 mg Tablet 15 mg PO BEDTIME Qty: 30 RF: 0 Continued cyclobenzaprine 10 mg tablet 1 tab PO TID RF: 0 bupropion HCl 150 mg tablet sustained-release 12 hr 1 tab PO BID RF: 0 amlodipine 10 mg tablet 1 tab PO DAILY RF: 0 lisinopril 40 mg tablet 1 tab PO DAILY RF: 0 Pradaxa 150 mg capsule 1 cap PO BID RF: 0 Discontinued metoprolol succinate 100 mg tablet extended release 24 hr 1 tab PO DAILY RF: 0 <Jada Miguel NP - Last Filed: 12/26/20 15:30> Discharge Orders: Discharge Order (Routine); Ordered 12/26/20 Ordered By: Jada Miguel <Jada Miguel NP - Last Filed: 12/26/20 15:30> Diet: advance to usual diet <Jada Miguel NP - Last Filed: 12/26/20 15:30> advance to usual diet <Harshad Mcdermott MD - Last Filed: 01/07/21 15:35> Activity on Discharge: No Running or jogging <Jada Miguel NP - Last Filed: 12/26/20 15:30> No Running or jogging <Harshad Mcdermott MD - Last Filed: 01/07/21 15:35> Stand Alone Forms: Patient Portal Discharge page <Jada Miguel NP - Last Filed: 12/26/20 15:30> Care Plan Goals: Stop drinking alcohol <Jada Miguel NP - Last Filed: 12/26/20 15:30> Health Concerns: Follow up with the primary care provider Your metoprolol has been increased to 100 mg daily <Jada Miguel NP - Last Filed: 12/26/20 15:30> Plan of Treatment: Follow up with the primary care provider Your metoprolol has been increased to 100 mg daily Please heavy labs checked next week <Jada Miguel NP - Last Filed: 12/26/20 15:30> Assessment: see discharge summary I saw patient and discssed finding and plan with [employer] and I agree witht the above <Jada Miguel NP - Last Filed: 12/26/20 15:30> Discharge Date/Time: 12/26/20 17:32 <Jada Miguel NP - Last Filed: 12/26/20 15:30>
== END 2020-12-26 17:32 | disposition home or self-care (01) | DRG 641 ==
LOC: HO.ED 12-20 01:46 → HO.EDOVER 12-20 03:47 → HO.ICU 12-20 03:49 → HO.IMC 12-21 16:39
PROVIDERS: Family Medicine; Internal Medicine Nephrology; Internal Medicine Pulmonary Disease; Admitting Provider Physician Assistant; Emergency Provider Emergency Medicine; PCP Internal Medicine; Visit Provider Nurse Practitioner Acute Care
DX: E87.1 Hypo-osmolality and hyponatremia (principal); F33.9 Major depressive disorder, recurrent, unspecified; I50.32 Chronic diastolic (congestive) heart failure; I48.0 Paroxysmal atrial fibrillation; F17.210 Nicotine dependence, cigarettes, uncomplicated; I11.0 Hypertensive heart disease with heart failure; F43.10 Post-traumatic stress disorder, unspecified; Z20.822 Contact with and (suspected) exposure to COVID-19; F10.20 Alcohol dependence, uncomplicated; Z71.6 Tobacco abuse counseling; Z88.2 Allergy status to sulfonamides; Z79.01 Long term (current) use of anticoagulants; Z79.899 Other long term (current) drug therapy
CPT/HCPCS: 36415; 70450; 72125; 80048; 80053; 82040; 82077; 82310; 82803; 83735; 83880; 83930; 83935; 84100; 84300; 84478; 84484; 85025; 85027; 85610; 85730; 87635; 93005; 93306; 97116; 97161; 99284; 99285; C1758; J2560; J7131

== ENCOUNTER 2020-12-29 15:31 | Outpatient (REF) | payer MEDICARE, SELFPAY ==
[2020-12-29 17:00] LABS: Anion Gap 12 (12-20); Blood Urea Nitrogen 8 mg/dL (9-16); Calcium 9.4 mg/dL (8.4-10.2); Carbon Dioxide 27 mmol/L (22-29); Chloride 96 mmol/L (96-108); Estimated Glomerular Filt Rate > 60; Glucose Random 92 mg/dL (60-115); Potassium 4.6 mmol/L (3.3-5.1); Sodium 130 mmol/L (135-145)
== END 2020-12-29 15:32 | disposition home or self-care (01) ==
LOC: HO.LAB 15:31
PROVIDERS: PCP Internal Medicine; Visit Provider Nurse Practitioner Acute Care
DX: E87.1 Hypo-osmolality and hyponatremia (principal)
CPT/HCPCS: 36415; 80048

== ENCOUNTER 2021-01-25 14:41 | Emergency (ER) | payer MEDICARE, SELFPAY ==
--- NOTE | ~2021-01-25 | CT_ITS ---
EXAMINATION: ET BRAIN AND CT CERVICAL SPINE WITHOUT CONTRAST. CLINICAL INFORMATION: Fall. COMPARISON: None TECHNIQUE: 5 mm thin axial and reformatted 2 mm thin sagittal and coronal images of brain were obtained. Subsequently axial 3 mm thin and reformatted 2 mm thin sagittal and coronal images of cervical spine were obtained. DLP 1184 mGy/cm. FINDINGS: Brain: There is no acute intra-axial, extra-axial bleed, masses or midline shift. There is no acute infarction evolution. The lateral ventricles are symmetrical in size and configuration without enlargement. Bone windows reveal no calvarial abnormality. There is no scalp soft tissue amount. Bilateral paranasal sinuses and mastoid air cells are well-aerated. Cervical spine: There is normal cervical lordosis. The vertebral heights, alignment are normal. There is mild loss of cc 4-C5 and C5-C6 disc heights with ventral and posterior cervical spondylosis. The craniovertebral junction is normal. No visible acute fracture, dislocation or subluxation seen. There is moderate left C3-C4 facet joint arthropathy and hypertrophy. No lytic or sclerotic process seen. Mild degenerative spurring at the C1-C2 disc level is noted CT/CT cervical spine wo con IMPRESSION: No acute intracranial process seen. Degenerative changes C4-C5 and C5-C6 disc levels with ventral and posterior spondylosis. No visible acute fracture, dislocation or subluxation seen. Moderate left C3-C4 facet joint hypertrophy and arthropathy.
--- NOTE | ~2021-01-25 | CT_ITS ---
EXAMINATION: ET BRAIN AND CT CERVICAL SPINE WITHOUT CONTRAST. CLINICAL INFORMATION: Fall. COMPARISON: None TECHNIQUE: 5 mm thin axial and reformatted 2 mm thin sagittal and coronal images of brain were obtained. Subsequently axial 3 mm thin and reformatted 2 mm thin sagittal and coronal images of cervical spine were obtained. DLP 1184 mGy/cm. FINDINGS: Brain: There is no acute intra-axial, extra-axial bleed, masses or midline shift. There is no acute infarction evolution. The lateral ventricles are symmetrical in size and configuration without enlargement. Bone windows reveal no calvarial abnormality. There is no scalp soft tissue amount. Bilateral paranasal sinuses and mastoid air cells are well-aerated. Cervical spine: There is normal cervical lordosis. The vertebral heights, alignment are normal. There is mild loss of cc 4-C5 and C5-C6 disc heights with ventral and posterior cervical spondylosis. The craniovertebral junction is normal. No visible acute fracture, dislocation or subluxation seen. There is moderate left C3-C4 facet joint arthropathy and hypertrophy. No lytic or sclerotic process seen. Mild degenerative spurring at the C1-C2 disc level is noted CT/CT head/brain wo con IMPRESSION: No acute intracranial process seen. Degenerative changes C4-C5 and C5-C6 disc levels with ventral and posterior spondylosis. No visible acute fracture, dislocation or subluxation seen. Moderate left C3-C4 facet joint hypertrophy and arthropathy.
[2021-01-25 15:15] VITALS: BP 144/75; PULSE 75; RESP 18; TEMP 36.8; O2SAT 98; BMI 29.1
--- NOTE | 2021-01-25 18:32 | ED.FALL ---
HPI - Fall General Chief Complaint: Fall Stated Complaint: fall on blood thinners Time Seen by Provider: 01/25/21 15:59 Source: patient Mode of arrival: ambulatory Limitations: no limitations History of Present Illness HPI Narrative: 70 years old male came in for evaluation after a mechanical fall. Patient was walking his dog last night when he tripped over his dog leash patient fell forward face down, patient was able to ease up the fall by extending his post hands, patient declined LOC, patient complaining of mild headache but severe neck pain and spasm. Patient is taking better dioxide for atrial fibrillation. Patient otherwise has no complain or other pain. Related Data Home Medications Medication Instructions Recorded Confirmed amlodipine 10 mg tablet 1 tab PO DAILY 12/20/20 12/20/20 bupropion HCl 150 mg tablet,12 hr 1 tab PO BID 12/20/20 sustained-release cyclobenzaprine 10 mg tablet 1 tab PO TID 12/20/20 12/20/20 dabigatran etexilate 150 mg 1 cap PO BID 12/20/20 12/20/20 capsule (Pradaxa) lisinopril 40 mg tablet 1 tab PO DAILY 12/20/20 12/20/20 Previous Rx's Medication Instructions Recorded metoprolol succinate 100 mg 100 mg PO DAILY #30 tab 12/25/20 tablet,extended release 24 hr mirtazapine 15 mg tablet 15 mg PO BEDTIME #30 tab 12/25/20 naltrexone 50 mg tablet 50 mg PO DAILY #30 tab 12/25/20 cyclobenzaprine 10 mg tablet 10 mg PO TID PRN #10 tab 01/25/21 gabapentin 400 mg capsule 400 mg PO BID #20 cap 01/25/21 (Neurontin) Allergies Allergy/AdvReac Type Severity Reaction Status Date / Time Sulfa (Sulfonamide Allergy Unknown UNKNOWN Verified 01/25/21 15:15 Antibiotics) [SULFA (SULFONAMIDE ANTIBIOTICS)] Review of Systems Review of Systems: All other systems are reviewed and are negative Constitutional: Reports as per HPI and Reports no additional constitutional complaints Eyes: Reports as per HPI and Reports no additional eye complaints Reports system reviewed and no additional complaints, except as documented Cardiovascular: Reports as per HPI and Reports no additional cardiovascular complaints Respiratory: Reports as per HPI and Reports no additional respiratory complaints Gastrointestinal: Reports as per HPI and Reports no additional gastrointestinal complaints Genitourinary: Reports no additional female genitourinary complaints Musculoskeletal: Reports no additional musculoskeletal complaints Skin/Breast: Reports system reviewed and no additional complaints, except as docu Psychiatric: Reports no additional psychiatric complaints Endocrine: Reports no additional endocrine complaints Hematologic/Lymphatic: Reports no additional hematologic/lymphatic complaints Allergic/Immunologic: Reports no additional allergic/immunologic complaints Reports system reviewed and no additional complaints, except as documented and Reports Abnormal speech present [facility] Past Medical History Medical History Afib Alcohol use disorder, moderate, dependence Diastolic CHF HTN (hypertension) Hyponatremia MDD (major depressive disorder), recurrent episode PTSD (post-traumatic stress disorder) Social History Social History Household Members: None Housing: House Do you presently have visiting nurse or other home services: No Patient Tobacco Use Status: Current someday Tobacco user Tobacco use type: Cigarette e-Cigarette/Vaping Use: Never Used Advance Directives: No Advance Directives Information Provided: No service: No Current occupational status: unemployed Physical Exam Vital Signs: Vital Signs: Last Vital Signs Temp 98.2 F 01/25/21 15:15 Pulse 75 01/25/21 15:15 Resp 18 01/25/21 15:15 BP 144/75 H 01/25/21 15:15 Pulse Ox 98 01/25/21 15:15 Body Mass Index 29.1 Vital signs have been reviewed as appeared to be correct. Blood pressure normal. Heart rate normal. Respiration rate normal. Temperature normal. Oxygen saturation normal. Appearance: Alert. Oriented X3. No acute distress. GCS of 15 Head: Normal external exam. Normocephalic. Atraumatic. No Alan signs noted. No raccoon eyes noted , superficial ecchymosis around the left eye with no tenderness Eyes: PERRLA. EOMI. Conjunctiva and sclera normal. Eyelids normal. ENT: TM's Normal. Pharynx normal. Uvula midline. Moist mucous membranes. No trismus noted. No drooling noted. No muffled voice noted. Neck: Normal inspection. Neck supple. No midline step-off or deformity, bilateral paraspinous muscle spasm, adenopathy. Thyroid Normal. No meningeal signs. No neck mass noted. CVS: Normal heart rate and rhythm. Heart sound normal. No murmurs noted. Pulses normal throughout. Respiratory: No respiratory distress. Painless inspiration. Breath sounds normal. No wheezes/rales/rhonchi noted. Chest nontender. No accessory muscle usage noted or decreased air movement noted. Abdomen: Soft and nontender. Bowel sounds normal in all 4 quadrants. No distention noted. No organomegaly noted. No visible injury noted. Back: No CVA tenderness. Full range of motion noted. Skin: Skin warm and dry. Normal skin color. Normal skin turgor. No rashes/lesions/lacerations noted. Extremities: No lower extremity edema. Extremities exhibit normal range of motion. Extremities nontender. Neuro: Oriented X 3. GCS of 15 Cranial nerve exam: II-XII are grossly intact No motor deficit. No sensory deficit. Reflexes normal. Course Course Course Narrative: Assessment and plan. 70-year-old male status post mechanical fall yesterday presented with GCS of 15, physical exam indicating bilateral paraspinous muscular spasm. Neuro exam is intact, CT head and C-spine unremarkable. Will discharge home on muscle relaxant/pain medication. MDM - Fall Medical Records Attestation: I reviewed the patient's medical records. Imaging Data Head/C-spine CT: Radiologist's impression: No acute intracranial process seen. ? Degenerative changes C4-C5 and C5-C6 disc levels with ventral and posterior spondylosis. No visible acute fracture, dislocation or subluxation seen. Moderate left C3-C4 facet joint hypertrophy and arthropathy. Discharge Plan Discharge Clinical Impression: Closed head injury, Acute neck sprain Patient Disposition: Home, Self-Care Prescriptions: New cyclobenzaprine 10 mg tablet 10 mg PO TID PRN (Reason: muscle spasm) Qty: 10 RF: 0 gabapentin [Neurontin] 400 mg capsule 400 mg PO BID Qty: 20 RF: 0 No Action cyclobenzaprine 10 mg tablet 1 tab PO TID RF: 0 bupropion HCl 150 mg tablet sustained-release 12 hr 1 tab PO BID RF: 0 amlodipine 10 mg tablet 1 tab PO DAILY RF: 0 lisinopril 40 mg tablet 1 tab PO DAILY RF: 0 Pradaxa 150 mg capsule 1 cap PO BID RF: 0 naltrexone 50 mg Tablet 50 mg PO DAILY Qty: 30 RF: 0 metoprolol succinate 100 mg Tablet Extended Release 24 Hr 100 mg PO DAILY Qty: 30 RF: 0 mirtazapine 15 mg Tablet 15 mg PO BEDTIME Qty: 30 RF: 0 Referrals: Miguel Castle MD [Primary Care Provider] - 2 days
== END 2021-01-25 18:41 | disposition home or self-care (01) ==
PROVIDERS: Emergency Provider Emergency Medicine; PCP Internal Medicine
DX: S09.90XA Unspecified injury of head, initial encounter (principal); S13.9XXA Sprain of joints and ligaments of unspecified parts of neck, initial encounter; I11.0 Hypertensive heart disease with heart failure; I50.30 Unspecified diastolic (congestive) heart failure; I48.91 Unspecified atrial fibrillation; W01.0XXA Fall on same level from slipping, tripping and stumbling without subsequent striking against object, initial encounter; Y93.K1 Activity, walking an animal; Y92.9 Unspecified place or not applicable; Y99.9 Unspecified external cause status
CPT/HCPCS: 70450; 72125; 99283; 99284

== ENCOUNTER 2021-03-18 15:31 | Inpatient (IN) | payer MEDICARE, SELFPAY ==
--- NOTE | ~2021-03-18 | XR_ITS ---
EXAMINATION: XR LUMBOSACRAL SPINE CLINICAL INFORMATION: Low back pain after fall COMPARISON: None TECHNIQUE: Three views of the lumbosacral spine. FINDINGS: Mild rotatory levocurvature of the degenerated lumbar spine. A compression fracture of the L1 vertebral body is likely chronic, but there are no comparison examinations that allow confirmation of this impression. There is estimated 25-30% anterior height loss of L1. No fracture lucency is identified within the compressed L1 vertebra. There is mild concavity of the L2 superior endplate without evidence of acute fracture. Multilevel osteophyte formation of the spine. The degenerative disc space narrowing of the lumbar spine is worst (i.e., severe) at L3-L4, where there is vacuum disc phenomenon, endplate sclerosis and prominent anterior and right anterolateral osteophyte formation. The visualized portion of the sacrum and left sacroiliac joint are unremarkable. The right sacroiliac joint is excluded from the [id number] on the AP radiograph. XR/XR lumbar spine 2-3V IMPRESSION: * Degenerative disc disease of L3-L4. Otherwise, there is generally mild loss of disc height at other levels of the degenerated lumbar spine. * Mild compression fracture of L1 vertebral body is probably chronic. Also, there is likely chronic, mild concave depression of the L2 superior endplate. There is no convincing acute fracture of the degenerated lumbar spine.
--- NOTE | 2021-03-18 15:53 | ECG_ITS ---
Test Reason : FALL Blood Pressure : / mmHG Vent. Rate : 062 BPM Atrial Rate : 062 BPM P-R Int : 154 ms QRS Dur : 090 ms QT Int : 422 ms P-R-T Axes : 039 -21 009 degrees QTc Int : 428 ms Normal sinus rhythm Nonspecific ST abnormality Abnormal ECG When compared with ECG of 25-DEC-2020 10:43, Sinus rhythm has replaced Atrial fibrillation Vent. rate has decreased BY 43 BPM Referred By: Generic ED Physician Electronically Signed By:Hernando Waite
[2021-03-18 16:42] VITALS: BP 92/59; PULSE 63; RESP 16; TEMP 36.7; O2SAT 100; BMI 29.1
[2021-03-18 17:49] LABS: Basophils Percent Auto 0.3 % (0-2); Eosinophils Percent Auto 0.6 % (0-4); Hematocrit 34.7 % (42.0-52.0); Hemoglobin 12.3 g/dl (14.0-18.0); Imm Gran Abs Auto 0.02 X10*3/uL (0.00-0.03); Imm Gran Pct Auto 0.3 % (0.0-0.4); Lymphocytes Absolute Auto 1.4 X10*3/uL (1.2-4.9); Lymphocytes Percent Auto 18.7 % (20-40); MANUAL DIFF FLAG NO; Mean Corpuscular HGB Conc 35.4 g/dl (31.0-36.0); Mean Corpuscular Hemoglobin 33.2 pg (27.0-33.0); Mean Corpuscular Volume 93.5 fL (80.0-98.0); Mean Platelet Volume 8.2 fL (9.4-12.4); Monocytes Absolute Auto 0.8 X10*3/uL (0.1-1.2); Monocytes Percent Auto 11.6 % (2-11); Neutrophils Percent Auto 68.5 % (45-73); Platelet Count 355 X10*3/uL (160-400); Red Blood Count 3.71 X10*6/uL (4.60-5.80); Red Cell Distribution Width 13.4 % (11.0-16.0); White Blood Count 7.3 X10*3/uL (4.8-10.8)
[2021-03-18 18:05] LABS: COVID-19 Test Negative (Negative)
[2021-03-18 18:14] LABS: Troponin-I High Sensitivity 26.1 ng/L (<3.5-35.0)
[2021-03-18 18:33] LABS: Anion Gap 15 (12-20); Blood Urea Nitrogen 8 mg/dL (9-16); Calcium 9.8 mg/dL (8.4-10.2); Carbon Dioxide 22 mmol/L (22-29); Chloride 90 mmol/L (96-108); Creatinine Clr Calc Pharmacy 100.4; Estimated Glomerular Filt Rate > 60; Glucose Random 88 mg/dL (60-115); Potassium 4.7 mmol/L (3.3-5.1); Sodium 122 mmol/L (135-145)
[2021-03-18 19:24] VITALS: BP 127/78; PULSE 65; RESP 16; O2SAT 96
--- NOTE | 2021-03-18 19:25 | ED.DIZZY ---
HPI - Dizziness General Chief Complaint: Dizziness Stated Complaint: fall dizy Time Seen by Provider: 03/18/21 19:25 Source: patient Mode of arrival: EMS Limitations: no limitations History of Present Illness HPI Narrative: Patient alcoholic drinking beer every day last admission was on 12/20 when sodium was 109 secondary to drinking delusional hypovolemia with SIADH. Comes here for last 2 weeks feeling dizzy weak same as last time had been falling without significant head injury sodium today was 122. Related Data Home Medications Medication Instructions Recorded Confirmed amlodipine 10 mg tablet 1 tab PO DAILY 12/20/20 12/20/20 bupropion HCl 150 mg tablet,12 hr 1 tab PO BID 12/20/20 sustained-release cyclobenzaprine 10 mg tablet 1 tab PO TID 12/20/20 12/20/20 dabigatran etexilate 150 mg 1 cap PO BID 12/20/20 12/20/20 capsule (Pradaxa) lisinopril 40 mg tablet 1 tab PO DAILY 12/20/20 12/20/20 Previous Rx's Medication Instructions Recorded metoprolol succinate 100 mg 100 mg PO DAILY #30 tab 12/25/20 tablet,extended release 24 hr mirtazapine 15 mg tablet 15 mg PO BEDTIME #30 tab 12/25/20 naltrexone 50 mg tablet 50 mg PO DAILY #30 tab 12/25/20 cyclobenzaprine 10 mg tablet 10 mg PO TID PRN #10 tab 01/25/21 gabapentin 400 mg capsule 400 mg PO BID #20 cap 01/25/21 (Neurontin) Allergies Allergy/AdvReac Type Severity Reaction Status Date / Time Sulfa (Sulfonamide Allergy Unknown UNKNOWN Verified 01/25/21 15:15 Antibiotics) [SULFA (SULFONAMIDE ANTIBIOTICS)] Review of Systems Review of Systems: Yes all other systems are reviewed and are negative [facility] Past Medical History Medical History Afib Alcohol use disorder, moderate, dependence Atrial fibrillation Diastolic CHF ETOH abuse HTN (hypertension) Hyponatremia MDD (major depressive disorder), recurrent episode PTSD (post-traumatic stress disorder) Social History Social History Household Members: None Housing: House Do you presently have visiting nurse or other home services: No Patient Tobacco Use Status: Current someday Tobacco user Tobacco use type: Cigarette e-Cigarette/Vaping Use: Never Used Advance Directives: No Advance Directives Information Provided: Yes service: No Current occupational status: unemployed Physical Exam Vital Signs: Vital Signs: Last Vital Signs Temp 98.1 F 03/18/21 20:42 Pulse 58 03/19/21 00:26 Resp 16 03/19/21 00:26 BP 113/71 03/19/21 00:26 Pulse Ox 96 03/19/21 00:26 BMI result Body Mass Index 29.1 Appearance: Alert. Oriented X3. No acute distress. Eyes: PERRLA, No Nystagmus ENT: Pharynx normal. Oral Mucosa moist Neck: Normal inspection. Neck supple. CVS: Normal heart rate and rhythm. Pulses normal. Respiratory: No respiratory distress. Equal air entry bilateral, no wheezing/rales/rhonchi Abdomen: Soft and nontender. Bowel sounds are present, no mass palpable, no CVA tenderness Skin: Skin warm and dry. Normal skin color. Normal skin turgor. Extremities: No lower extremity edema. No calf tenderness Back: Diffuse lumbar spine tenderness no focal tenderness no step-off sign Neuro: Oriented X 3. No motor deficit. No sensory deficit.No cerebellar signs , cranial nerves II-XII intact MDM - Dizziness MDM Narrative Medical decision making narrative: Patient alert oriented x3 no confusion with hyponatremia hypoosmolar secondary to SIADH with chronic back pain and alcohol use UA showed nitrite positive wbc's.++ will start on Rocephin blood cultures and lactic acid ordered x-ray showed old L1 compression fracture diffuse arthritic changes will admit patient for fluid restriction hyponatremia and UTI Lab Data Attestation: I reviewed the patient's lab results. Result diagrams: 03/18/21 17:42 03/18/21 17:42 Labs: Lab Results 03/18/21 03/18/21 03/18/21 Range/Units 17:42 17:42 17:42 WBC 7.3 (4.8-10.8) X10*3/uL RBC 3.71 L (4.60-5.80) X10*6/uL Hgb 12.3 L (14.0-18.0) g/dl Hct 34.7 L (42.0-52.0) % MCV 93.5 (80.0-98.0) fL MCH 33.2 H (27.0-33.0) pg MCHC 35.4 (31.0-36.0) g/dl RDW 13.4 (11.0-16.0) % Plt Count 355 (160-400) X10*3/uL MPV 8.2 L (9.4-12.4) fL Immature Gran % (Auto) 0.3 (0.0-0.4) % Neut % (Auto) 68.5 (45-73) % Lymph % (Auto) 18.7 L (20-40) % [place] % (Auto) 11.6 H (2-11) % Eos % (Auto) 0.6 (0-4) % Baso % (Auto) 0.3 (0-2) % Lymph # (Auto) 1.4 (1.2-4.9) X10*3/uL [place] # (Auto) 0.8 (0.1-1.2) X10*3/uL Eos # (Auto) 0.0 (0.0-0.4) X10*3/uL Baso # (Auto) 0.0 (0.0-0.2) X10*3/uL Abs Immat Gran (auto) 0.02 (0.00-0.03) X10*3/uL Absolute Neuts (auto) 5.0 (2.0-8.3) x10*3/uL Absolute Nucleated RBC 0.000 (0.0-0.012) X10*3/uL Nucleated RBC % (auto) 0.0 (0.0-0.2) /100WBC Sodium 122 L (135-145) mmol/L Potassium 4.7 (3.3-5.1) mmol/L Chloride 90 L (96-108) mmol/L Carbon Dioxide 22 (22-29) mmol/L Anion Gap 15 (12-20) BUN 8 L (9-16) mg/dL Creatinine 0.84 (0.5-1.4) mg/dL Estim Creat Clear Calc 100.4 Estimated GFR > 60 Random Glucose 88 (60-115) mg/dL Osmolality (281-305) mosm/kg Calcium 9.8 (8.4-10.2) mg/dL Troponin I High Sens 26.1 (<3.5-35.0) ng/L Ethyl Alcohol mg/dL COVID-19 (MANDA) (Negative) COVID-19 Clin Com 03/18/21 03/18/21 03/18/21 Range/Units 17:42 17:42 17:42 WBC (4.8-10.8) X10*3/uL RBC (4.60-5.80) X10*6/uL Hgb (14.0-18.0) g/dl Hct (42.0-52.0) % MCV (80.0-98.0) fL MCH (27.0-33.0) pg MCHC (31.0-36.0) g/dl RDW (11.0-16.0) % Plt Count (160-400) X10*3/uL MPV (9.4-12.4) fL Immature Gran % (Auto) (0.0-0.4) % Neut % (Auto) (45-73) % Lymph % (Auto) (20-40) % [place] % (Auto) (2-11) % Eos % (Auto) (0-4) % Baso % (Auto) (0-2) % Lymph # (Auto) (1.2-4.9) X10*3/uL [place] # (Auto) (0.1-1.2) X10*3/uL Eos # (Auto) (0.0-0.4) X10*3/uL Baso # (Auto) (0.0-0.2) X10*3/uL Abs Immat Gran (auto) (0.00-0.03) X10*3/uL Absolute Neuts (auto) (2.0-8.3) x10*3/uL Absolute Nucleated RBC (0.0-0.012) X10*3/uL Nucleated RBC % (auto) (0.0-0.2) /100WBC Sodium (135-145) mmol/L Potassium (3.3-5.1) mmol/L Chloride (96-108) mmol/L Carbon Dioxide (22-29) mmol/L Anion Gap (12-20) BUN (9-16) mg/dL Creatinine (0.5-1.4) mg/dL Estim Creat Clear Calc Estimated GFR Random Glucose (60-115) mg/dL Osmolality 257 L (281-305) mosm/kg Calcium (8.4-10.2) mg/dL Troponin I High Sens (<3.5-35.0) ng/L Ethyl Alcohol 12 mg/dL COVID-19 (MANDA) Negative (Negative) COVID-19 Clin Com See Note Discharge Plan Discharge Clinical Impression: Hypo-osmolar hyponatremia UTI (urinary tract infection) Qualifiers: Urinary tract infection type: acute cystitis Hematuria presence: without hematuria Qualified Code(s): N30.00 - Acute cystitis without hematuria Alcohol dependence Qualifiers: Substance use status: uncomplicated Qualified Code(s): F10.20 - Alcohol dependence, uncomplicated Patient Disposition: Admitted As Inpatient
[2021-03-18 20:23] LABS: Ethanol 12 mg/dL
[2021-03-18 20:42] VITALS: BP 116/69; PULSE 74; TEMP 36.7; O2SAT 100
[2021-03-18] MEDS: Thiamine HCL 100 MG TABLET PO (20:44)
[2021-03-18] MEDS: Folic Acid 1 MG TABLET PO (20:44)
--- NOTE | 2021-03-18 22:00 | P.HPHOSP_ITS ---
History of Present Illness Date of Service: 03/18/21 Chief Complaint: Dizziness 70-year-old male with a past medical history of hypertension, AFib on Pradaxa, alcohol abuse, major depression, history of hyponatremia, history of recurrent falls presented to the hospital with a chief complaint of dizziness. Patient reported that had intermittent episodes of falls. Today when he stood up he felt lightheaded and dizzy and subsequently had a fall; mentioned that he was too weak to get up and subsequently called his friend to bring him to the hospital for further evaluation. Patient denied any head strike or loss of consciousness. Denied any seizure- like activity. Denies any numbness tingling or focal weakness. Patient denies any hip pain neck pain or back pain. Denied any chest pain palpitations. Review of all other systems is negative except mentioned above ER course: per ER team patient exam was nonfocal; CT head and CT C-spine showed no acute findings; on labs noted to have severe hyponatremia of 122 presumed to be secondary to alcohol use. Urinalysis was abnormal consistent with UTI. Admitted for further management. [facility] Medical History Afib Alcohol use disorder, moderate, dependence Atrial fibrillation Diastolic CHF ETOH abuse HTN (hypertension) Hyponatremia MDD (major depressive disorder), recurrent episode PTSD (post-traumatic stress disorder) Pertinent family history: reviewed Social History Household Members: None Housing: House Do you presently have visiting nurse or other home services: No Patient Tobacco Use Status: Current someday Tobacco user Tobacco use type: Cigarette e-Cigarette/Vaping Use: Never Used Advance Directives: No Advance Directives Information Provided: Yes service: No Current occupational status: unemployed Meds Allergies Allergy/AdvReac Type Severity Reaction Status Date / Time Sulfa (Sulfonamide Allergy Unknown UNKNOWN Verified 01/25/21 15:15 Antibiotics) [SULFA (SULFONAMIDE ANTIBIOTICS)] Home Medications Medication Instructions Recorded Confirmed Last Taken Type amlodipine 10 mg tablet 1 tab PO DAILY 12/20/20 12/20/20 03/18/21 History 1 bupropion HCl 150 mg tablet,12 hr 1 tab PO BID 12/20/20 Unknown History sustained-release cyclobenzaprine 10 mg tablet 1 tab PO TID 12/20/20 12/20/20 03/17/21 History dabigatran etexilate 150 mg 1 cap PO BID 12/20/20 12/20/20 03/18/21 History capsule (Pradaxa) 1 lisinopril 40 mg tablet 1 tab PO DAILY 12/20/20 12/20/20 03/18/21 History Physical Exam Vital Signs and Narrative: Vital Signs: Last Vital Signs Temp 98.1 F 03/18/21 20:42 Pulse 74 03/18/21 20:42 Resp 16 03/18/21 19:24 BP 116/69 03/18/21 20:42 Pulse Ox 100 03/18/21 20:42 BMI result Body Mass Index 29.1 Gen: Appears be in no acute distress HEENT: NCAT, Moist mucosa. neck is supple Pulmonary: Vesicular breath sounds, fair air entry CVS: Normal S1-S2 Abdomen: BS+, Soft, Nontender Extremities: Warm well perfused Neuro: Alert and awake. Grossly nonfocal Results Labs CBC and Chem 7: 03/18/21 17:42 03/18/21 17:42 Labs: Laboratory Results - last 24 hr 03/18/21 03/18/21 03/18/21 17:42 17:42 17:42 MCV 93.5 MCH 33.2 H MCHC 35.4 RDW 13.4 Plt Count 355 MPV 8.2 L Immature Gran % (Auto) 0.3 Neut % (Auto) 68.5 Lymph % (Auto) 18.7 L [place] % (Auto) 11.6 H Eos % (Auto) 0.6 Baso % (Auto) 0.3 Lymph # (Auto) 1.4 [place] # (Auto) 0.8 Eos # (Auto) 0.0 Baso # (Auto) 0.0 Abs Immat Gran (auto) 0.02 Absolute Neuts (auto) 5.0 Absolute Nucleated RBC 0.000 Nucleated RBC % (auto) 0.0 Anion Gap 15 Estim Creat Clear Calc 100.4 Estimated GFR > 60 Random Glucose 88 Calcium 9.8 Troponin I High Sens 26.1 Ethyl Alcohol COVID-19 (MANDA) COVID-19 Clin Com 03/18/21 03/18/21 17:42 17:42 MCV MCH MCHC RDW Plt Count MPV Immature Gran % (Auto) Neut % (Auto) Lymph % (Auto) [place] % (Auto) Eos % (Auto) Baso % (Auto) Lymph # (Auto) [place] # (Auto) Eos # (Auto) Baso # (Auto) Abs Immat Gran (auto) Absolute Neuts (auto) Absolute Nucleated RBC Nucleated RBC % (auto) Anion Gap Estim Creat Clear Calc Estimated GFR Random Glucose Calcium Troponin I High Sens Ethyl Alcohol 12 COVID-19 (MANDA) Negative COVID-19 Clin Com See Note Imaging Radiologist's Impressions: Impressions Lumbar Spine X-Ray 03/18/21 20:07 IMPRESSION: * Degenerative disc disease of L3-L4. Otherwise, there is generally mild loss of disc height at other levels of the degenerated lumbar spine. * Mild compression fracture of L1 vertebral body is probably chronic. Also, there is likely chronic, mild concave depression of the L2 superior endplate. There is no convincing acute fracture of the degenerated lumbar spine. Assessment and Plan (1) Hyponatremia: Status: Acute (2) Alcohol use disorder, moderate, dependence: Status: Acute (3) Afib: Status: Acute (4) Atrial fibrillation: Status: Acute 70-year-old male with a past medical history of hypertension, AFib on Pradaxa, alcohol abuse, major depression, history of hyponatremia, history of recurrent falls presented to the hospital with a chief complaint of dizziness. fall: Mechanical in nature. Denies any head strike or loss of hardness. Exam benign. CT head and CT C-spine showed no acute findings. Musculoskeletal exam benign. Dizziness: Orthostatic vitals. Fall precautions. PT/ OT eventually. Likely in the setting of alcohol use. Severe hyponatremia: Patient had prior history of hyponatremia. Likely beer [place]. Repeat sodium levels. will obtain urine electrolytes, serum and urine osmolality. Fluid restriction. Nephrology consult. Alcohol abuse: Will monitor on CIWA protocol with Ativan. UTI: Continue ceftriaxone. Follow up cultures. History of AFib: Rate controlled. Continue home Pradaxa. DVT prophylaxis: Patient on systemic anticoagulation Code status: Full code Quality Stroke Does the patient have a stroke diagnosis?: No VTE Prior VTE?: No VTE Risk Level:: Medical - moderate - high VTE Device Contraindication: N/A - Device Ordered VTE Drug Contraindication: Treatment Not Indicated
[2021-03-18] MEDS: Acetaminophen 325 MG TABLET 650 MG PO (22:23)
[2021-03-18] MEDS: hydrOXYzine HCL 25 MG TABLET PO (22:23)
[2021-03-18 22:45] LABS: Osmolality, Serum 257 mosm/kg (281-305)
[2021-03-18] MEDS: carisoprodoL 350 MG TABLET PO (22:50)
[2021-03-18 23:07] LABS: Appearance Urine CLOUDY; Color Urine YELLOW; Glucose Urine UA NEG (NEG); Nitrite Urine POS (NEG); Specific Gravity - Urine <= 1.005 (1.005-1.025); Urine Blood 1+ (NEG); Urine Ketones NEG (NEG); Urine Protein TRACE MG/DL (NEG-TRACE)
[2021-03-18 23:08] LABS: Leukocyte Esterase Urine 3+ (NEG)
[2021-03-18 23:13] LABS: Amorphous Sediment Urine TRACE /LPF; Mucus Urine TRACE /LPF; Squamous Epithelial Cell Urine TRACE /LPF
[2021-03-18 23:14] LABS: Bacteria Urine TRACE /LPF; WBC Urine TNTC /HPF (0-4)
[2021-03-18 23:15] LABS: Creatinine Urine 48.62 mg/dL; Sodium Urine Random < 20.0 mmol/L
[2021-03-18 23:16] LABS: Osmolality Urine 169 mosm/kg (373-1093)
[2021-03-18 23:26] VITALS: BP 117/74; PULSE 60; RESP 16; O2SAT 100
[2021-03-19] VITALS (9 sets, daily range): BP systolic 103–138; BP diastolic 63–87; PULSE 57–80; RESP 12–20; TEMP 36.4–36.8; O2SAT 96–100
[2021-03-19 02:26] LABS: Lactic Acid 0.9 mmol/L (0.5-2.0)
[2021-03-19] MEDS: cefTRIAXone sodium 1 GM in 0.9 % Sodium Chloride 50 ML IV ×2 (02:43→22:36)
[2021-03-19 06:33] LABS: MANUAL DIFF FLAG NO
[2021-03-19 06:35] LABS: Basophils Percent Auto 0.3 % (0-2); Eosinophils Absolute Auto 0.1 X10*3/uL (0.0-0.4); Hematocrit 33.1 % (42.0-52.0); Hemoglobin 11.9 g/dl (14.0-18.0); Imm Gran Abs Auto 0.02 X10*3/uL (0.00-0.03); Imm Gran Pct Auto 0.3 % (0.0-0.4); Lymphocytes Absolute Auto 1.3 X10*3/uL (1.2-4.9); Lymphocytes Percent Auto 20.9 % (20-40); Mean Corpuscular Hemoglobin 33.7 pg (27.0-33.0); Mean Corpuscular Volume 93.8 fL (80.0-98.0); Mean Platelet Volume 8.3 fL (9.4-12.4); Monocytes Percent Auto 16.7 % (2-11); Neutrophils Absolute Auto 3.6 x10*3/uL (2.0-8.3); Neutrophils Percent Auto 60.8 % (45-73); Platelet Count 309 X10*3/uL (160-400); Red Blood Count 3.53 X10*6/uL (4.60-5.80); Red Cell Distribution Width 13.3 % (11.0-16.0)
[2021-03-19 06:48] LABS: Anion Gap 12 (12-20); Blood Urea Nitrogen 10 mg/dL (9-16); Calcium 9.5 mg/dL (8.4-10.2); Carbon Dioxide 23 mmol/L (22-29); Chloride 93 mmol/L (96-108); Creatinine Clr Calc Pharmacy 104.1; Estimated Glomerular Filt Rate > 60; Glucose Random 105 mg/dL (60-115); Potassium 4.2 mmol/L (3.3-5.1); Sodium 124 mmol/L (135-145)
[2021-03-19] MEDS: Thiamine HCL 100 MG TABLET PO (08:15)
[2021-03-19] MEDS: Multivitamin TABLET 1 TAB PO (08:15)
[2021-03-19] MEDS: Folic Acid 1 MG TABLET PO (08:16)
[2021-03-19] MEDS: hydrOXYzine HCL 25 MG TABLET PO (08:16)
[2021-03-19] MEDS: Acetaminophen 325 MG TABLET 650 MG PO (08:16)
[2021-03-19] MEDS: LORazepam 1 MG TABLET PO ×3 (08:16→22:42)
[2021-03-19] MEDS: Famotidine 20 MG TABLET PO ×2 (08:16→22:36)
--- NOTE | 2021-03-19 08:20 | PC.NURSE ---
Pt alert and oriented x 3, requesting breakfast and muscle relaxer, medicated as per MAR orders with PRN ativan and tylenol. Awaiting bed assignment. Pain 6/10 to back, worse with movement. Breakfast tray given. Will continue to monitor
--- NOTE | 2021-03-19 08:47 | PHA.MEDREC ---
Pharmacy Consult ? Medication Reconciliation Pharmacy has completed the medication reconciliation. Spoke with patient in ED.
--- NOTE | 2021-03-19 11:13 | P.CONNP_ITS ---
History of Present Illness Reason for Consult Consult date: 03/19/21 Reason for consult: Hyponatremia Chief Complaint Chief complaint: Hyponatremia History of Present Illness Narrative: ?70-year-old male with a past medical history of hypertension, AFib on Pradaxa, alcohol abuse, major depression, history of hyponatremia, history of recurrent falls presented to the hospital with a chief complaint of dizziness.? Patient reported that had intermittent episodes of falls.? Today when he stood up he felt lightheaded and dizzy and subsequently had a fall; mentioned that he was too weak to get up and subsequently called his friend to bring him to the hospital for further evaluation.? Admits to drinking 4 cans ( 25Oz) everyday c/o Back pain and wants Soma Review of Systems Review of Systems Yes all other systems are reviewed and are negative PMF Past Medical History Medical History Afib Alcohol use disorder, moderate, dependence Atrial fibrillation Diastolic CHF ETOH abuse HTN (hypertension) Hyponatremia MDD (major depressive disorder), recurrent episode PTSD (post-traumatic stress disorder) Family History Pertinent family history: reviewed Social History Social History Household Members: None Housing: House Do you presently have visiting nurse or other home services: No Patient Tobacco Use Status: Current someday Tobacco user Tobacco use type: Cigarette Cigarettes Per Day: 5 e-Cigarette/Vaping Use: Never Used service: No Meds Allergies Allergy/AdvReac Type Severity Reaction Status Date / Time Sulfa (Sulfonamide Allergy Unknown UNKNOWN Verified 01/25/21 15:15 Antibiotics) [SULFA (SULFONAMIDE ANTIBIOTICS)] Active Medications: Current Medications Acetaminophen (Acetaminophen 325 Mg Tablet) 650 mg PO Q6H PRN PRN Reason: Pain, Mild (Pain Scale 1-3) Last Admin: 03/19/21 08:16 Dose: 650 mg Documented by: Famotidine (Famotidine 20 Mg Tablet) 20 mg PO BID [facility] Last Admin: 03/19/21 08:16 Dose: 20 mg Documented by: Folic Acid (Folic Acid 1 Mg Tablet) 1 mg PO DAILY [facility] Stop: 03/22/21 08:59 Last Admin: 03/19/21 08:16 Dose: 1 mg Documented by: Hydroxyzine HCl (Hydroxyzine Hcl 25 Mg Tablet) 25 mg PO Q6H PRN PRN Reason: Anxiety Last Admin: 03/19/21 08:16 Dose: 25 mg Documented by: Ceftriaxone Sodium 1 gm/ (Sodium Chloride) 50 mls @ 100 mls/hr IV Q24H KEIKO Lorazepam (Lorazepam 1 Mg Tablet) 1 mg PO Q4H PRN PRN Reason: Breakthrough alcohol withdrawa Stop: 03/22/21 21:57 Last Admin: 03/19/21 08:16 Dose: 1 mg Documented by: Melatonin (Melatonin 3 Mg Tablet) 6 mg PO BEDTIME PRN PRN Reason: Insomnia Multivitamins/Vitamin C (Multivitamin Tablet) 1 tab PO DAILY KEIKO Stop: 03/22/21 08:59 Last Admin: 03/19/21 08:15 Dose: 1 tab Documented by: Senna (Sennosides 8.6 Mg Tablet) 17.2 mg PO BEDTIME PRN PRN Reason: Constipation Sodium Chloride (0.9 % Sodium Chloride Flush 3 Ml Syringe) 3 ml IVFLUSH QSHIFT KEIKO Last Admin: 03/19/21 09:35 Dose: Not Given Documented by: Thiamine HCl (Thiamine Hcl 100 Mg Tablet) 100 mg PO DAILY KEIKO Stop: 03/22/21 08:59 Last Admin: 03/19/21 08:15 Dose: 100 mg Documented by: Home Medications Medication Instructions Recorded Confirmed Last Taken Type dabigatran etexilate 150 mg 1 cap PO BID 12/20/20 03/19/21 03/18/21 History capsule (Pradaxa) 1 lisinopril 40 mg tablet 1 tab PO DAILY 12/20/20 03/19/21 03/18/21 History carisoprodol 250 mg tablet (Soma) 250 mg PO TID PRN 03/19/21 03/19/21 Unknown History diphenhydramine HCl 25 mg capsule 50 mg PO BEDTIME 03/19/21 03/19/21 03/17/21 History (Sleep Aid (diphenhydramine)) Physical Exam Vital Signs: Last Vital Signs Temp 98.2 F 03/19/21 10:31 Pulse 63 03/19/21 10:31 Resp 20 03/19/21 10:31 BP 138/81 03/19/21 10:31 Pulse Ox 100 03/19/21 10:31 BMI result Body Mass Index 29.1 Results Lab Results Result Diagrams: 03/25/21 05:48 03/25/21 05:48 Lab results: Chemistry 03/18/21 03/19/21 17:42 06:26 Sodium 122 L 124 L Potassium 4.7 4.2 Carbon Dioxide 22 23 BUN 8 L 10 Creatinine 0.84 0.81 Calcium 9.8 9.5 Hematology 03/18/21 03/19/21 17:42 06:26 WBC 7.3 6.0 Hgb 12.3 L 11.9 L Plt Count 355 309 Urinalysis 03/18/21 22:54 Urine Color YELLOW Urine Appearance CLOUDY Urine pH 6.0 Ur Specific [place] <= 1.005 Urine Protein TRACE Urine Glucose (UA) NEG Urine Ketones NEG Urine Blood 1+ H Urine Nitrite POS H Ur Leukocyte Esterase 3+ H Urine RBC 1-4 Urine WBC TNTC H Ur Squamous Epith Cells TRACE Urine Studies 03/18/21 03/18/21 22:54 22:54 Urine Osmolality 169 L Urine Creatinine 48.62 Assessment and Plan (1) Hyponatremia: (2) Alcohol use disorder, moderate, dependence: (3) Afib: Hyponatremia most likely du eto beer potomania Pain may be a source of non osmotic ADHrelease Suggest Uien Na/Osm Serum Osm DC Beer REstrict PO water intake Allow diuresis Rate of correction not more than 0.5mmol/L/hr Check p Na Q 2 hrs Procedures Date of Service Date of Service: 03/19/21
--- NOTE | 2021-03-19 12:27 | MHC.CM.PN ---
Attempted to meet with patient in regards to discharge planning. Patient currently sleeping. No family present. Will attempt to meet again. Continue to monitor for d/c needs.
[2021-03-19] MEDS: amLODIPine Besylate 10 MG TABLET PO (13:21)
[2021-03-19] MEDS: Metoprolol Succinate ER 100 MG TAB.ER.24H PO (13:22)
[2021-03-19] MEDS: lisinopriL 40 MG TABLET PO (13:22)
[2021-03-19] MEDS: Dabigatran Etexilate Mesylate 150 MG CAPSULE PO ×2 (14:24→22:36)
--- NOTE | 2021-03-19 15:57 | HO.PM.IMPN ---
Subjective Subjective Date of Service: 03/19/21 Interval History: Feels better this a.m.; still tired and weak. No withdrawal symptoms per patient Review of Systems denies chest pain Denies shortness of breath Denies nausea vomiting diarrhea Physical Exam Vital Signs: Vital Signs: Last Vital Signs Temp 98.2 F 03/19/21 10:31 Pulse 62 03/19/21 13:22 Resp 20 03/19/21 10:31 BP 103/63 03/19/21 13:22 Pulse Ox 100 03/19/21 10:31 BMI result Body Mass Index 29.1 Const: Other: no acute distress Resp: Other: clear to auscultation bilaterally no rales rhonchi or wheezes Cardio: Other: no S4; positive S1-S2; S3 murmurs rubs or gallops GI: Other: soft nontender nondistended normoactive bowel sounds x4 quadrants no appreciable hepatosplenomegaly Neuro: Other: cranial nerves 2-12 grossly intact as tested. Motor is 5/5 all extremities. Sensation intact. Cognition is appropriate Extrem: Other: right lower extremity greater than left lower extremity by 1.5 cm. No edema bilaterally Objective Data Active Medications Acetaminophen (Acetaminophen 325 Mg Tablet) 650 mg PO Q6H PRN PRN Reason: Pain, Mild (Pain Scale 1-3) Last Admin: 03/19/21 08:16 Dose: 650 mg Documented by: MYRA Amlodipine Besylate (Amlodipine Besylate 10 Mg Tablet) 10 mg PO DAILY [facility]; Protocol Last Admin: 03/19/21 13:21 Dose: 10 mg Documented by: MYRA Carisoprodol (Carisoprodol 350 Mg Tablet) 350 mg PO TID PRN PRN Reason: Muscle Spasm Dabigatran (Dabigatran Etexilate Mesylate 150 Mg Capsule) 150 mg PO BID [facility] Last Admin: 03/19/21 14:24 Dose: 150 mg Documented by: MYRA Diphenhydramine HCl (Diphenhydramine Hcl 25 Mg Tablet) 50 mg PO BEDTIME [facility] Famotidine (Famotidine 20 Mg Tablet) 20 mg PO BID [facility] Last Admin: 03/19/21 08:16 Dose: 20 mg Documented by: MYRA Folic Acid (Folic Acid 1 Mg Tablet) 1 mg PO DAILY [facility] Stop: 03/22/21 08:59 Last Admin: 03/19/21 08:16 Dose: 1 mg Documented by: MYRA Hydroxyzine HCl (Hydroxyzine Hcl 25 Mg Tablet) 25 mg PO Q6H PRN PRN Reason: Anxiety Last Admin: 03/19/21 08:16 Dose: 25 mg Documented by: MYRA Ceftriaxone Sodium 1 gm/ (Sodium Chloride) 50 mls @ 100 mls/hr IV Q24H KEIKO Lisinopril (Lisinopril 40 Mg Tablet) 40 mg PO DAILY [facility]; Protocol Last Admin: 03/19/21 13:22 Dose: 40 mg Documented by: MYRA Lorazepam (Lorazepam 1 Mg Tablet) 1 mg PO Q4H PRN PRN Reason: Breakthrough alcohol withdrawa Stop: 03/22/21 21:57 Last Admin: 03/19/21 13:19 Dose: 1 mg Documented by: MYRA Melatonin (Melatonin 3 Mg Tablet) 6 mg PO BEDTIME PRN PRN Reason: Insomnia Metoprolol Succinate (Metoprolol Succinate Er 100 Mg Tab.Er.24h) 100 mg PO DAILY [facility]; Protocol Last Admin: 03/19/21 13:22 Dose: 100 mg Documented by: MYRA Multivitamins/Vitamin C (Multivitamin Tablet) 1 tab PO DAILY [facility] Stop: 03/22/21 08:59 Last Admin: 03/19/21 08:15 Dose: 1 tab Documented by: MYRA Senna (Sennosides 8.6 Mg Tablet) 17.2 mg PO BEDTIME PRN PRN Reason: Constipation Sodium Chloride (0.9 % Sodium Chloride Flush 3 Ml Syringe) 3 ml IVFLUSH QSHIFT [facility] Last Admin: 03/19/21 09:35 Dose: Not Given Documented by: MYRA Non-Admin Reason: Patient Refused Thiamine HCl (Thiamine Hcl 100 Mg Tablet) 100 mg PO DAILY [facility]IKO Stop: 03/22/21 08:59 Last Admin: 03/19/21 08:15 Dose: 100 mg Documented by: MYRA Labs CBC & Chem 7: 03/19/21 06:26 03/19/21 06:26 Labs: Laboratory Results - last 24 hr 03/18/21 03/18/21 03/18/21 17:42 17:42 17:42 MCV 93.5 MCH 33.2 H MCHC 35.4 RDW 13.4 Plt Count 355 MPV 8.2 L Immature Gran % (Auto) 0.3 Neut % (Auto) 68.5 Lymph % (Auto) 18.7 L [place] % (Auto) 11.6 H Eos % (Auto) 0.6 Baso % (Auto) 0.3 Lymph # (Auto) 1.4 [place] # (Auto) 0.8 Eos # (Auto) 0.0 Baso # (Auto) 0.0 Abs Immat Gran (auto) 0.02 Absolute Neuts (auto) 5.0 Absolute Nucleated RBC 0.000 Nucleated RBC % (auto) 0.0 Anion Gap 15 Estim Creat Clear Calc 100.4 Estimated GFR > 60 Random Glucose 88 Osmolality Lactic Acid Calcium 9.8 Troponin I High Sens 26.1 Urine Color Urine Appearance Urine pH Ur Specific [place] Urine Protein Urine Glucose (UA) Urine Ketones Urine Blood Urine Nitrite Ur Leukocyte Esterase Urine RBC Urine WBC Ur Squamous Epith Cells Amorphous Sediment Urine Bacteria Urine Mucus Urine Osmolality Ur Random Sodium Ur Random Chloride Urine Creatinine Ethyl Alcohol COVID-19 (MANDA) COVID-thredUP 03/18/21 03/18/21 03/18/21 17:42 17:42 17:42 MCV MCH MCHC RDW Plt Count MPV Immature Gran % (Auto) Neut % (Auto) Lymph % (Auto) [place] % (Auto) Eos % (Auto) Baso % (Auto) Lymph # (Auto) [place] # (Auto) Eos # (Auto) Baso # (Auto) Abs Immat Gran (auto) Absolute Neuts (auto) Absolute Nucleated RBC Nucleated RBC % (auto) Anion Gap Estim Creat Clear Calc Estimated GFR Random Glucose Osmolality 257 L Lactic Acid Calcium Troponin I High Sens Urine Color Urine Appearance Urine pH Ur Specific [place] Urine Protein Urine Glucose (UA) Urine Ketones Urine Blood Urine Nitrite Ur Leukocyte Esterase Urine RBC Urine WBC Ur Squamous Epith Cells Amorphous Sediment Urine Bacteria Urine Mucus Urine Osmolality Ur Random Sodium Ur Random Chloride Urine Creatinine Ethyl Alcohol 12 COVID-19 (MANDA) Negative COVID-19 [place] Com See Note 03/18/21 03/18/21 03/18/21 22:54 22:54 22:54 MCV MCH MCHC RDW Plt Count MPV Immature Gran % (Auto) Neut % (Auto) Lymph % (Auto) [place] % (Auto) Eos % (Auto) Baso % (Auto) Lymph # (Auto) [place] # (Auto) Eos # (Auto) Baso # (Auto) Abs Immat Gran (auto) Absolute Neuts (auto) Absolute Nucleated RBC Nucleated RBC % (auto) Anion Gap Estim Creat Clear Calc Estimated GFR Random Glucose Osmolality Lactic Acid Calcium Troponin I High Sens Urine Color YELLOW Urine Appearance CLOUDY Urine pH 6.0 Ur Specific [place] <= 1.005 Urine Protein TRACE Urine Glucose (UA) NEG Urine Ketones NEG Urine Blood 1+ H Urine Nitrite POS H Ur Leukocyte Esterase 3+ H Urine RBC 1-4 Urine WBC TNTC H Ur Squamous Epith Cells TRACE Amorphous Sediment TRACE Urine Bacteria TRACE Urine Mucus TRACE Urine Osmolality 169 L Ur Random Sodium < 20.0 Ur Random Chloride 20.0 Urine Creatinine 48.62 Ethyl Alcohol COVID-19 (MANDA) COVID-19 [place] 03/19/21 03/19/21 03/19/21 02:01 06:26 06:26 MCV 93.8 MCH 33.7 H MCHC 36.0 RDW 13.3 Plt Count 309 MPV 8.3 L Immature Gran % (Auto) 0.3 Neut % (Auto) 60.8 Lymph % (Auto) 20.9 [place] % (Auto) 16.7 H Eos % (Auto) 1.0 Baso % (Auto) 0.3 Lymph # (Auto) 1.3 [place] # (Auto) 1.0 Eos # (Auto) 0.1 Baso # (Auto) 0.0 Abs Immat Gran (auto) 0.02 Absolute Neuts (auto) 3.6 Absolute Nucleated RBC 0.000 Nucleated RBC % (auto) 0.0 Anion Gap 12 Estim Creat Clear Calc 104.1 Estimated GFR > 60 Random Glucose 105 Osmolality Lactic Acid 0.9 Calcium 9.5 Troponin I High Sens Urine Color Urine Appearance Urine pH Ur Specific [place] Urine Protein Urine Glucose (UA) Urine Ketones Urine Blood Urine Nitrite Ur Leukocyte Esterase Urine RBC Urine WBC Ur Squamous Epith Cells Amorphous Sediment Urine Bacteria Urine Mucus Urine Osmolality Ur Random Sodium Ur Random Chloride Urine Creatinine Ethyl Alcohol COVID-19 (MANDA) COVID-19 [place] Assessment and Plan (1) Somatic dysfunction of right sacroiliac joint: Status: Acute (2) Hypo-osmolar hyponatremia: Status: Acute (3) Alcohol dependence: Status: Acute Assessment and Plan: 70-year-old male with a past medical history of hypertension, AFib on Pradaxa, alcohol abuse, major depression, history of hyponatremia, history of recurrent falls presented to the hospital with a chief complaint of dizziness. 1. Hyponatremia (beer potomania) Fluid restriction 1500ml/24hrs Serial sodiums(attempt q2hr)..pt sodium 124-131 12/22/20 to present. Osmostat likely reset. 2. Afib Rate conttrol adequate. Continue Pradaxa...continue BB as per outpatient dosing 3.HTN Acceptable control on CCB/ALIDA/BB Adjust as indicated. 4. UTI Continue CTX...adjust pending cultures. 5Alcohol abuse Pt denies HX withdraw. Will follow on CIWA 6. Right SI joint lesion Reduced with SLR...oral prednisone taper DVT prophylaxis: Patient on systemic anticoagulation Code status: Full code Quality Stroke Does the patient have a stroke diagnosis?: No VTE Prior VTE?: No VTE Risk Level:: Medical - moderate - high VTE Device Contraindication: N/A - Device Ordered VTE Drug Contraindication: Treatment Not Indicated
[2021-03-19 16:14] LABS: Sodium 125 mmol/L (135-145)
[2021-03-19] MEDS: predniSONE 20 MG TABLET 60 MG PO (16:44)
[2021-03-19] MEDS: carisoprodoL 350 MG TABLET PO (16:44)
--- NOTE | 2021-03-19 16:46 | PC.NURSE ---
Medicated as per [facility] orders, pain 09/16 at this time Pt A&Ox3, self repositions, awaiting bed assignment. Will continue to monitor.
[2021-03-19] MEDS: 0.9 % Sodium Chloride Flush 3 ML SYRINGE IVFLUSH ×2 (16:48→22:37)
[2021-03-19] MEDS: diphenhydrAMINE HCL 25 MG TABLET 50 MG PO (22:36)
[2021-03-20 03:55] VITALS: BP 113/68; PULSE 70; RESP 18; TEMP 36.7; O2SAT 99
[2021-03-20] MEDS: carisoprodoL 350 MG TABLET PO ×3 (03:58→20:45)
[2021-03-20] MEDS: hydrOXYzine HCL 25 MG TABLET PO ×2 (05:07→20:46)
[2021-03-20 05:56] LABS: Hematocrit 33.6 % (42.0-52.0); Hemoglobin 11.9 g/dl (14.0-18.0); Imm Gran Abs Auto 0.02 X10*3/uL (0.00-0.03); Imm Gran Pct Auto 0.4 % (0.0-0.4); Lymphocytes Absolute Auto 0.3 X10*3/uL (1.2-4.9); Lymphocytes Percent Auto 6.3 % (20-40); MANUAL DIFF FLAG SCAN; Mean Corpuscular HGB Conc 35.4 g/dl (31.0-36.0); Mean Corpuscular Hemoglobin 33.3 pg (27.0-33.0); Mean Corpuscular Volume 94.1 fL (80.0-98.0); Mean Platelet Volume 8.6 fL (9.4-12.4); Monocytes Absolute Auto 0.1 X10*3/uL (0.1-1.2); Monocytes Percent Auto 2.5 % (2-11); Neutrophils Absolute Auto 4.6 x10*3/uL (2.0-8.3); Neutrophils Percent Auto 90.8 % (45-73); Platelet Count 346 X10*3/uL (160-400); Red Blood Count 3.57 X10*6/uL (4.60-5.80); Red Cell Distribution Width 13.3 % (11.0-16.0); SCAN SMEAR FLAG 1; White Blood Count 5.1 X10*3/uL (4.8-10.8)
[2021-03-20 06:17] LABS: SLIDE REVIEW VERIFIED
[2021-03-20 06:20] LABS: Alanine Aminotransferase 13 U/L (0-40); Albumin Level 3.8 g/dL (3.5-5.0); Alkaline Phosphatase 153 U/L (39-117); Anion Gap 14 (12-20); Aspartate Amino Transferase 14 U/L (5-37); Bilirubin Total 0.2 mg/dL (0.0-1.0); Blood Urea Nitrogen 11 mg/dL (9-16); Calcium 9.5 mg/dL (8.4-10.2); Carbon Dioxide 21 mmol/L (22-29); Chloride 93 mmol/L (96-108); Creatinine Clr Calc Pharmacy 112.5; Estimated Glomerular Filt Rate > 60; Glucose Fasting 149 mg/dL (60-99); Potassium 4.6 mmol/L (3.3-5.1); Sodium 123 mmol/L (135-145); Total Protein 6.9 g/dL (6.5-8.0)
[2021-03-20 07:27] VITALS: BP 137/80; PULSE 73; RESP 18; TEMP 36.2; O2SAT 100
[2021-03-20] MEDS: LORazepam 1 MG TABLET PO (07:47)
[2021-03-20] MEDS: 0.9 % Sodium Chloride Flush 3 ML SYRINGE IVFLUSH ×3 (07:54→20:46)
[2021-03-20] MEDS: PHENobarbitaL sodium 130 MG/ML VIAL 310 MG IM (08:09)
--- NOTE | 2021-03-20 11:25 | HO.PM.IMPN ---
Subjective Subjective Date of Service: 03/20/21 Interval History: no acute events overnight; began with confusion agitation early this morning Review of Systems denies chest pain Denies shortness of breath Denies nausea vomiting diarrhea Physical Exam Vital Signs: Vital Signs: Last Vital Signs Temp 97.1 F 03/20/21 07:27 Pulse 73 03/20/21 07:27 Resp 18 03/20/21 07:27 BP 137/80 03/20/21 07:27 Pulse Ox 100 03/20/21 07:27 BMI result Body Mass Index 29.1 Const: Other: no acute distress Resp: Other: clear to auscultation bilaterally no rales rhonchi or wheezes Cardio: Other: no S4; positive S1-S2; S3 murmurs rubs or gallops GI: Other: soft nontender nondistended normoactive bowel sounds x4 quadrants no appreciable hepatosplenomegaly Neuro: Other: cranial nerves 2-12 grossly intact as tested. Motor is 5/5 all extremities. Sensation intact. Cognition is appropriate Extrem: Other: right lower extremity greater than left lower extremity by 1.5 cm. No edema bilaterally Objective Data Active Medications Acetaminophen (Acetaminophen 325 Mg Tablet) 650 mg PO Q6H PRN PRN Reason: Pain, Mild (Pain Scale 1-3) Last Admin: 03/19/21 08:16 Dose: 650 mg Documented by: MYRA Amlodipine Besylate (Amlodipine Besylate 10 Mg Tablet) 10 mg PO DAILY [facility]; Protocol Last Admin: 03/19/21 13:21 Dose: 10 mg Documented by: MYRA Carisoprodol (Carisoprodol 350 Mg Tablet) 350 mg PO TID PRN PRN Reason: Muscle Spasm Last Admin: 03/20/21 03:58 Dose: 350 mg Documented by: AMOR Dabigatran (Dabigatran Etexilate Mesylate 150 Mg Capsule) 150 mg PO BID [facility] Last Admin: 03/19/21 22:36 Dose: 150 mg Documented by: AMOR Diphenhydramine HCl (Diphenhydramine Hcl 25 Mg Tablet) 50 mg PO BEDTIME [facility] Last Admin: 03/19/21 22:36 Dose: 50 mg Documented by: AMOR Famotidine (Famotidine 20 Mg Tablet) 20 mg PO BID [facility] Last Admin: 03/19/21 22:36 Dose: 20 mg Documented by: AMOR Folic Acid (Folic Acid 1 Mg Tablet) 1 mg PO DAILY [facility]IKO Stop: 03/22/21 08:59 Last Admin: 03/19/21 08:16 Dose: 1 mg Documented by: MYRA Hydroxyzine HCl (Hydroxyzine Hcl 25 Mg Tablet) 25 mg PO Q6H PRN PRN Reason: Anxiety Last Admin: 03/20/21 05:07 Dose: 25 mg Documented by: AMOR Ceftriaxone Sodium 1 gm/ (Sodium Chloride) 50 mls @ 100 mls/hr IV Q24H KEIKO Last Infusion: 03/19/21 23:44 Dose: 0 mls/hr Documented by: AMOR Lisinopril (Lisinopril 40 Mg Tablet) 40 mg PO DAILY [facility]; Protocol Last Admin: 03/19/21 13:22 Dose: 40 mg Documented by: MYRA Medication (No Benzodiazepines) 1 each MISCELLANE DAILY [facility] Melatonin (Melatonin 3 Mg Tablet) 6 mg PO BEDTIME PRN PRN Reason: Insomnia Metoprolol Succinate (Metoprolol Succinate Er 100 Mg Tab.Er.24h) 100 mg PO DAILY [facility]; Protocol Last Admin: 03/19/21 13:22 Dose: 100 mg Documented by: MYRA Multivitamins/Vitamin C (Multivitamin Tablet) 1 tab PO DAILY [facility] Stop: 03/22/21 08:59 Last Admin: 03/19/21 08:15 Dose: 1 tab Documented by: MYRA Phenobarbital (Phenobarbital 30 Mg Tablet) 60 mg PO BID [facility]; Protocol Stop: 03/22/21 09:01 Phenobarbital (Phenobarbital 30 Mg Tablet) 30 mg PO BID [facility]; Protocol Stop: 03/24/21 09:01 Phenobarbital (Phenobarbital 30 Mg Tablet) 30 mg PO DAILY [facility]; Protocol Stop: 03/26/21 09:01 Phenobarbital Sodium (Phenobarbital Sodium 130 Mg/Ml Vial) 233 mg IM Q3H [facility]; Protocol Stop: 03/20/21 14:01 Prednisone (Prednisone 20 Mg Tablet) 60 mg PO DAILY [facility] Last Admin: 03/19/21 16:44 Dose: 60 mg Documented by: MYRA Senna (Sennosides 8.6 Mg Tablet) 17.2 mg PO BEDTIME PRN PRN Reason: Constipation Sodium Chloride (0.9 % Sodium Chloride Flush 3 Ml Syringe) 3 ml IVFLUSH QSHIFT KEIKO Last Admin: 03/20/21 07:54 Dose: 3 ml Documented by: LORI Thiamine HCl (Thiamine Hcl 100 Mg Tablet) 100 mg PO DAILY [facility] Stop: 03/22/21 08:59 Last Admin: 03/19/21 08:15 Dose: 100 mg Documented by: MYRA Labs CBC & Chem 7: 03/20/21 05:13 03/20/21 05:13 Labs: Laboratory Results - last 24 hr 03/18/21 03/19/21 03/19/21 17:42 06:26 14:57 MCV MCH MCHC RDW Plt Count MPV Immature Gran % (Auto) Neut % (Auto) Lymph % (Auto) [place] % (Auto) Eos % (Auto) Baso % (Auto) Lymph # (Auto) [place] # (Auto) Eos # (Auto) Baso # (Auto) Abs Immat Gran (auto) Absolute Neuts (auto) Absolute Nucleated RBC Nucleated RBC % (auto) Smear Tech's Comments Sodium 122 L 124 L 125 L Anion Gap Estim Creat Clear Calc Estimated GFR Fasting Glucose Calcium Total Bilirubin AST ALT Alkaline Phosphatase Total Protein Albumin 03/20/21 03/20/21 05:13 05:13 MCV 94.1 MCH 33.3 H MCHC 35.4 RDW 13.3 Plt Count 346 MPV 8.6 L Immature Gran % (Auto) 0.4 Neut % (Auto) 90.8 H Lymph % (Auto) 6.3 L [place] % (Auto) 2.5 Eos % (Auto) 0.0 Baso % (Auto) 0.0 Lymph # (Auto) 0.3 L [place] # (Auto) 0.1 Eos # (Auto) 0.0 Baso # (Auto) 0.0 Abs Immat Gran (auto) 0.02 Absolute Neuts (auto) 4.6 Absolute Nucleated RBC 0.000 Nucleated RBC % (auto) 0.0 Smear Tech's Comments VERIFIED Sodium 123 L Anion Gap 14 Estim Creat Clear Calc 112.5 Estimated GFR > 60 Fasting Glucose 149 H Calcium 9.5 Total Bilirubin 0.2 AST 14 D ALT 13 Alkaline Phosphatase 153 H Total Protein 6.9 Albumin 3.8 Assessment and Plan (1) Hypo-osmolar hyponatremia: Status: Acute (2) Atrial fibrillation: Status: Acute (3) Alcohol withdrawal: Status: Acute Assessment and Plan: 70-year-old male with a past medical history of hypertension, AFib on Pradaxa, alcohol abuse, major depression, history of hyponatremia, history of recurrent falls presented to the hospital with a chief complaint of dizziness. Began with alcohol withdrawal this a.m. 1. Acute alcohol withdraw One:one sitter Phenobarb protocol as per pharmacy 2. Hyponatremia (beer potomania) Fluid restriction 1500ml/24hrs Slowly improving.... sodium 124-131 12/22/20 to present. 3. Afib Rate conttrol adequate. Continue Pradaxa...continue BB as per outpatient dosing 4.HTN Acceptable control on CCB/ALIDA/BB Adjust as indicated. 5. UTI Continue CTX...adjust pending blood cultures(Urine not sent). DVT prophylaxis: Patient on systemic anticoagulation Code status: Full code Quality Stroke Does the patient have a stroke diagnosis?: No VTE Prior VTE?: No VTE Risk Level:: Medical - moderate - high VTE Device Contraindication: N/A - Device Ordered VTE Drug Contraindication: Treatment Not Indicated
[2021-03-20 11:38] VITALS: BP 117/75; PULSE 62; RESP 13; TEMP 35.4; O2SAT 97
--- NOTE | 2021-03-20 12:12 | P.PNNP_ITS ---
Subjective Subjective Date of Service: 04/12/21 Interval history: Events noted Physical Exam Vital Signs: Vital Signs: Last Vital Signs Temp 95.8 F L 03/20/21 11:38 Pulse 62 03/20/21 11:38 Resp 13 03/20/21 11:38 BP 117/75 03/20/21 11:38 Pulse Ox 97 03/20/21 11:38 BMI result Body Mass Index 29.1 Const: Other: no acute distress Resp: Other: clear to auscultation bilaterally no rales rhonchi or wheezes Cardio: Other: no S4; positive S1-S2; S3 murmurs rubs or gallops GI: Other: soft nontender nondistended normoactive bowel sounds x4 quadrants no appreciable hepatosplenomegaly Neuro: Other: cranial nerves 2-12 grossly intact as tested. Motor is 5/5 all extremities. Sensation intact. Cognition is appropriate Extrem: Other: right lower extremity greater than left lower extremity by 1.5 cm. No edema bilaterally Objective Data Labs CBC & Chem 7: 03/25/21 05:48 03/25/21 05:48 Labs: Laboratory Results - last 24 hr 03/19/21 03/20/21 03/20/21 14:57 05:13 05:13 WBC 5.1 RBC 3.57 L Hgb 11.9 L Hct 33.6 L MCV 94.1 MCH 33.3 H MCHC 35.4 RDW 13.3 Plt Count 346 MPV 8.6 L Immature Gran % (Auto) 0.4 Neut % (Auto) 90.8 H Lymph % (Auto) 6.3 L [place] % (Auto) 2.5 Eos % (Auto) 0.0 Baso % (Auto) 0.0 Lymph # (Auto) 0.3 L [place] # (Auto) 0.1 Eos # (Auto) 0.0 Baso # (Auto) 0.0 Abs Immat Gran (auto) 0.02 Absolute Neuts (auto) 4.6 Absolute Nucleated RBC 0.000 Nucleated RBC % (auto) 0.0 Smear Tech's Comments VERIFIED Sodium 125 L 123 L Potassium 4.6 Chloride 93 L Carbon Dioxide 21 L Anion Gap 14 BUN 11 Creatinine 0.75 Estim Creat Clear Calc 112.5 Estimated GFR > 60 Fasting Glucose 149 H Calcium 9.5 Total Bilirubin 0.2 AST 14 D ALT 13 Alkaline Phosphatase 153 H Total Protein 6.9 Albumin 3.8 Procedures Date of Service Date of Service: 03/20/21 Assessment & Plan Assessment and plan (1) Hypo-osmolar hyponatremia: Status: Resolved (2) Atrial fibrillation: (3) Alcohol withdrawal: Status: Resolved Assessment and Plan: 70-year-old male with a past medical history of hypertension, AFib on Pradaxa, alcohol abuse, major depression, history of hyponatremia, history of recurrent falls presented to the hospital with a chief complaint of dizziness. Began with alcohol withdrawal this a.m. (1) Hyponatremia: ?Status:?Acute Na at 123 - No rapid change (2) Alcohol use disorder, moderate, dependence: ?Status:?Acute (3) Afib: ?Status:?Acute ? ? ? Hyponatremia most? likely due to beer potomania Pain may be a source of non osmotic ADHrelease Suggest Low Urine NA suggestive of hypoperfusion- would administer IV NS at 50 cc/hr x 1 L DC Beer REstrict PO water intake 1L per 24 hrs Allow diuresis Change Lisinopril to Valsartan Rate of correction not more than 0.5mmol/L/hr Check p Na Q 2-3 hrs Time Spent With Patient Time: Total time spent is greater than 50% in coordination of care (as documented) at patient's floor/unit and/or counseling patient: Time with patient: 15 - 24 minutes Progress Note: Quality Stroke Does the patient have a stroke diagnosis?: No
[2021-03-20] MEDS: predniSONE 20 MG TABLET 60 MG PO (12:13)
[2021-03-20 12:14] VITALS: BP 117/75; PULSE 62
[2021-03-20] MEDS: Metoprolol Succinate ER 100 MG TAB.ER.24H PO (12:14)
[2021-03-20] MEDS: amLODIPine Besylate 10 MG TABLET PO (12:14)
[2021-03-20] MEDS: Folic Acid 1 MG TABLET PO (12:15)
[2021-03-20] MEDS: Dabigatran Etexilate Mesylate 150 MG CAPSULE PO ×2 (12:15→20:45)
[2021-03-20] MEDS: Thiamine HCL 100 MG TABLET PO (12:15)
[2021-03-20] MEDS: lisinopriL 40 MG TABLET PO (12:15)
[2021-03-20] MEDS: Famotidine 20 MG TABLET PO ×2 (12:15→20:46)
[2021-03-20] MEDS: Multivitamin TABLET 1 TAB PO (12:16)
--- NOTE | 2021-03-20 12:44 | MHC.CM.PN ---
Unable to complete assessment due to mental status. COOK TACO completed utilizing EMR.
--- NOTE | 2021-03-20 12:45 | MHC.CM.PN ---
Addendum: No other contacts provided in demographics.
[2021-03-20] MEDS: PHENobarbitaL sodium 130 MG/ML VIAL 233 MG IM ×3 (12:51→17:16)
--- NOTE | 2021-03-20 14:02 | MHC.CM.PN ---
Received written note from that a Michi called who indicated he was the friend who called the ambulance for the patient. Michi wants the patient to know that he is feeding the patient's dog Sadie while the patient is hospitalized. Michi can be reached at [phone]. Patient unable to receive/comprehend any coherent communication at this time. Can deliver information to patient when mentation clears. CM to follow.
[2021-03-20 15:34] VITALS: PULSE 74; TEMP 36.1
[2021-03-20] MEDS: PHENobarbitaL 30 MG TABLET 60 MG PO (20:45)
[2021-03-20] MEDS: Melatonin 3 MG TABLET 6 MG PO (20:45)
[2021-03-20] MEDS: diphenhydrAMINE HCL 25 MG TABLET 50 MG PO (20:45)
[2021-03-20] MEDS: cefTRIAXone sodium 1 GM in 0.9 % Sodium Chloride 50 ML IV (23:17)
[2021-03-20 23:23] VITALS: BP 93/56; PULSE 62; RESP 18; O2SAT 93
[2021-03-21] VITALS (7 sets, daily range): BP systolic 85–125; BP diastolic 54–72; PULSE 62–79; RESP 14–20; TEMP 35.7–36.7; O2SAT 96–99
[2021-03-21 06:09] LABS: MANUAL DIFF FLAG NO
[2021-03-21 06:13] LABS: Basophils Percent Auto 0.1 % (0-2); Hematocrit 34.3 % (42.0-52.0); Hemoglobin 11.8 g/dl (14.0-18.0); Imm Gran Abs Auto 0.07 X10*3/uL (0.00-0.03); Imm Gran Pct Auto 0.7 % (0.0-0.4); Lymphocytes Absolute Auto 0.9 X10*3/uL (1.2-4.9); Lymphocytes Percent Auto 8.5 % (20-40); Mean Corpuscular HGB Conc 34.4 g/dl (31.0-36.0); Mean Corpuscular Hemoglobin 33.5 pg (27.0-33.0); Mean Corpuscular Volume 97.4 fL (80.0-98.0); Monocytes Absolute Auto 0.8 X10*3/uL (0.1-1.2); Monocytes Percent Auto 7.5 % (2-11); Neutrophils Absolute Auto 8.8 x10*3/uL (2.0-8.3); Neutrophils Percent Auto 83.2 % (45-73); Platelet Count 322 X10*3/uL (160-400); Red Blood Count 3.52 X10*6/uL (4.60-5.80); Red Cell Distribution Width 13.5 % (11.0-16.0); White Blood Count 10.6 X10*3/uL (4.8-10.8)
[2021-03-21 06:49] LABS: Alanine Aminotransferase 15 U/L (0-40); Albumin Level 3.9 g/dL (3.5-5.0); Alkaline Phosphatase 145 U/L (39-117); Anion Gap 17 (12-20); Aspartate Amino Transferase 26 U/L (5-37); Bilirubin Total 0.2 mg/dL (0.0-1.0); Blood Urea Nitrogen 16 mg/dL (9-16); Calcium 9.7 mg/dL (8.4-10.2); Carbon Dioxide 19 mmol/L (22-29); Chloride 95 mmol/L (96-108); Creatinine Clr Calc Pharmacy 101.6; Estimated Glomerular Filt Rate > 60; Glucose Fasting 124 mg/dL (60-99); Potassium 4.9 mmol/L (3.3-5.1); Sodium 126 mmol/L (135-145); Total Protein 7.1 g/dL (6.5-8.0)
[2021-03-21] MEDS: PHENobarbitaL 30 MG TABLET 60 MG PO ×2 (08:56→20:32)
[2021-03-21] MEDS: Folic Acid 1 MG TABLET PO (08:57)
[2021-03-21] MEDS: Multivitamin TABLET 1 TAB PO (08:57)
[2021-03-21] MEDS: Sodium Chloride 0.45 % 1,000 ML 50 ML IVCONT (08:57)
[2021-03-21] MEDS: Thiamine HCL 100 MG TABLET PO (08:57)
[2021-03-21] MEDS: Famotidine 20 MG TABLET PO ×2 (08:57→20:32)
[2021-03-21] MEDS: predniSONE 20 MG TABLET 60 MG PO (08:57)
[2021-03-21] MEDS: Dabigatran Etexilate Mesylate 150 MG CAPSULE PO ×2 (08:57→20:32)
[2021-03-21] MEDS: Losartan Potassium 50 MG TABLET 100 MG PO (08:58)
[2021-03-21] MEDS: amLODIPine Besylate 10 MG TABLET PO (08:58)
[2021-03-21] MEDS: Metoprolol Succinate ER 100 MG TAB.ER.24H PO (08:58)
[2021-03-21] MEDS: carisoprodoL 350 MG TABLET PO ×2 (13:00→20:31)
[2021-03-21] MEDS: Acetaminophen 325 MG TABLET 650 MG PO (13:01)
[2021-03-21] MEDS: hydrOXYzine HCL 25 MG TABLET PO (15:14)
--- NOTE | 2021-03-21 15:59 | HO.PM.IMPN ---
Subjective Subjective Date of Service: 03/21/21 Interval History: confused but more clear on phenobarb protocol. No seizure activity Physical Exam Vital Signs: Vital Signs: Last Vital Signs Temp 98.0 F 03/21/21 15:23 Pulse 62 03/21/21 15:23 Resp 16 03/21/21 15:23 BP 85/60 L 03/21/21 15:23 Pulse Ox 99 03/21/21 15:23 BMI result Body Mass Index 29.1 Const: Other: no acute distress Resp: Other: clear to auscultation bilaterally no rales rhonchi or wheezes Cardio: Other: no S4; positive S1-S2; S3 murmurs rubs or gallops GI: Other: soft nontender nondistended normoactive bowel sounds x4 quadrants no appreciable hepatosplenomegaly Neuro: Other: cranial nerves 2-12 grossly intact as tested. Motor is 5/5 all extremities. Sensation intact. Cognition is appropriate Extrem: Other: no edema bilaterally Objective Data Active Medications Acetaminophen (Acetaminophen 325 Mg Tablet) 650 mg PO Q6H PRN PRN Reason: Pain, Mild (Pain Scale 1-3) Last Admin: 03/21/21 13:01 Dose: 650 mg Documented by: DERRICK Amlodipine Besylate (Amlodipine Besylate 10 Mg Tablet) 10 mg PO DAILY [facility]; Protocol Last Admin: 03/21/21 08:58 Dose: 10 mg Documented by: TOBIAS Carisoprodol (Carisoprodol 350 Mg Tablet) 350 mg PO TID PRN PRN Reason: Muscle Spasm Last Admin: 03/21/21 13:00 Dose: 350 mg Documented by: DERRICK Dabigatran (Dabigatran Etexilate Mesylate 150 Mg Capsule) 150 mg PO BID [facility] Last Admin: 03/21/21 08:57 Dose: 150 mg Documented by: TOBIAS Diphenhydramine HCl (Diphenhydramine Hcl 25 Mg Tablet) 50 mg PO BEDTIME [facility] Last Admin: 03/20/21 20:45 Dose: 50 mg Documented by: ANTINDIA Famotidine (Famotidine 20 Mg Tablet) 20 mg PO BID [facility] Last Admin: 03/21/21 08:57 Dose: 20 mg Documented by: TOBIAS Folic Acid (Folic Acid 1 Mg Tablet) 1 mg PO DAILY [facility] Stop: 03/22/21 08:59 Last Admin: 03/21/21 08:57 Dose: 1 mg Documented by: TOBIAS Hydroxyzine HCl (Hydroxyzine Hcl 25 Mg Tablet) 25 mg PO Q6H PRN PRN Reason: Anxiety Last Admin: 03/21/21 15:14 Dose: 25 mg Documented by: DERRICK Ceftriaxone Sodium 1 gm/ (Sodium Chloride) 50 mls @ 100 mls/hr IV Q24H [facility] Last Infusion: 03/20/21 23:55 Dose: 0 mls/hr Documented by: AIDEN Sodium Chloride () 1,000 mls @ 50 mls/hr IVCONT .Q20H ONE Stop: 03/22/21 03:31 Last Admin: 03/21/21 08:57 Dose: 50 mls/hr Documented by: TOBIAS Losartan Potassium (Losartan Potassium 50 Mg Tablet) 100 mg PO DAILY [facility]; Protocol Last Admin: 03/21/21 08:58 Dose: 50 mg Documented by: TOBIAS Medication (No Benzodiazepines) 1 each MISCELLANE DAILY [facility] Melatonin (Melatonin 3 Mg Tablet) 6 mg PO BEDTIME PRN PRN Reason: Insomnia Last Admin: 03/20/21 20:45 Dose: 6 mg Documented by: AIDEN Metoprolol Succinate (Metoprolol Succinate Er 100 Mg Tab.Er.24h) 100 mg PO DAILY [facility]; Protocol Last Admin: 03/21/21 08:58 Dose: 100 mg Documented by: TOBIAS Multivitamins/Vitamin C (Multivitamin Tablet) 1 tab PO DAILY [facility] Stop: 03/22/21 08:59 Last Admin: 03/21/21 08:57 Dose: 1 tab Documented by: TOBIAS Phenobarbital (Phenobarbital 30 Mg Tablet) 60 mg PO BID [facility]; Protocol Stop: 03/22/21 09:01 Last Admin: 03/21/21 08:56 Dose: 60 mg Documented by: TOBIAS Phenobarbital (Phenobarbital 30 Mg Tablet) 30 mg PO BID [facility]; Protocol Stop: 03/24/21 09:01 Phenobarbital (Phenobarbital 30 Mg Tablet) 30 mg PO DAILY [facility]; Protocol Stop: 03/26/21 09:01 Prednisone (Prednisone 20 Mg Tablet) 60 mg PO DAILY [facility] Last Admin: 03/21/21 08:57 Dose: 60 mg Documented by: TOBIAS Senna (Sennosides 8.6 Mg Tablet) 17.2 mg PO BEDTIME PRN PRN Reason: Constipation Sodium Chloride (0.9 % Sodium Chloride Flush 3 Ml Syringe) 3 ml IVFLUSH QSHIFT [facility] Last Admin: 03/21/21 10:42 Dose: Not Given Documented by: DERRICK Non-Admin Reason: IV Running Thiamine HCl (Thiamine Hcl 100 Mg Tablet) 100 mg PO DAILY [facility] Stop: 03/22/21 08:59 Last Admin: 03/21/21 08:57 Dose: 100 mg Documented by: TOBIAS Labs CBC & Chem 7: 03/21/21 05:09 03/21/21 05:09 Labs: Laboratory Results - last 24 hr 03/21/21 03/21/21 05:09 05:09 MCV 97.4 MCH 33.5 H MCHC 34.4 RDW 13.5 Plt Count 322 MPV 9.0 L Immature Gran % (Auto) 0.7 H Neut % (Auto) 83.2 H Lymph % (Auto) 8.5 L [place] % (Auto) 7.5 Eos % (Auto) 0.0 Baso % (Auto) 0.1 Lymph # (Auto) 0.9 L [place] # (Auto) 0.8 Eos # (Auto) 0.0 Baso # (Auto) 0.0 Abs Immat Gran (auto) 0.07 H Absolute Neuts (auto) 8.8 H Absolute Nucleated RBC 0.000 Nucleated RBC % (auto) 0.0 Anion Gap 17 Estim Creat Clear Calc 101.6 Estimated GFR > 60 Fasting Glucose 124 H Calcium 9.7 Total Bilirubin 0.2 AST 26 D ALT 15 Alkaline Phosphatase 145 H Total Protein 7.1 Albumin 3.9 Microbiology Microbiology Results: Microbiology 03/19/21 11:07 Blood Culture - Preliminary Blood - Venous No growth after 48 hours. 03/19/21 10:28 Blood Culture - Preliminary Blood - Venous No growth after 48 hours. Assessment and Plan (1) Alcohol withdrawal: Status: Acute (2) Hypo-osmolar hyponatremia: Status: Acute (3) HTN (hypertension): Status: Acute (4) Afib: Status: Acute Assessment and Plan: 70-year-old male with a past medical history of hypertension, AFib on Pradaxa, alcohol abuse, major depression, history of hyponatremia, history of recurrent falls presented to the hospital with a chief complaint of dizziness. confused but more cooperative on phenobarb protocol 1. Acute alcohol withdraw One:one sitter Phenobarb protocol as per pharmacy 2. Hyponatremia (beer potomania) Fluid restriction 1500ml/24hrs Slowly improving.... sodium 124-131 12/22/20 to present. 3. Afib Rate conttrol adequate. Continue Pradaxa...continue BB as per outpatient dosing 4.HTN now hypotensive. Will hold meds pending response 5. UTI Continue CTX...adjust pending blood cultures(Urine not sent). retaining urine. . . Straight cath p.r.n. DVT prophylaxis: Patient on systemic anticoagulation Code status: Full code Quality Stroke Does the patient have a stroke diagnosis?: No VTE Prior VTE?: No VTE Risk Level:: Medical - moderate - high VTE Device Contraindication: N/A - Device Ordered VTE Drug Contraindication: Treatment Not Indicated
--- NOTE | 2021-03-21 17:42 | P.PNNP_ITS ---
Subjective Subjective Date of Service: 03/21/21 Interval history: confused but more clear on phenobarb protocol. No seizure activity Physical Exam Vital Signs: Vital Signs: Last Vital Signs Temp 98.0 F 03/21/21 15:23 Pulse 62 03/21/21 15:23 Resp 16 03/21/21 15:23 BP 85/60 L 03/21/21 15:23 Pulse Ox 99 03/21/21 15:23 BMI result Body Mass Index 29.1 Const: General: no acute distress Neck: Neck: Yes supple Resp: Auscultation: diminished lung sounds Cardio: Rate: regular rate GI: Palpation (GI): Soft to palpation Neuro: General: moves all extremities Objective Data Labs CBC & Chem 7: 03/21/21 05:09 03/21/21 05:09 Labs: Laboratory Results - last 24 hr 03/21/21 03/21/21 05:09 05:09 WBC 10.6 RBC 3.52 L Hgb 11.8 L Hct 34.3 L MCV 97.4 MCH 33.5 H MCHC 34.4 RDW 13.5 Plt Count 322 MPV 9.0 L Immature Gran % (Auto) 0.7 H Neut % (Auto) 83.2 H Lymph % (Auto) 8.5 L [place] % (Auto) 7.5 Eos % (Auto) 0.0 Baso % (Auto) 0.1 Lymph # (Auto) 0.9 L [place] # (Auto) 0.8 Eos # (Auto) 0.0 Baso # (Auto) 0.0 Abs Immat Gran (auto) 0.07 H Absolute Neuts (auto) 8.8 H Absolute Nucleated RBC 0.000 Nucleated RBC % (auto) 0.0 Sodium 126 L Potassium 4.9 Chloride 95 L Carbon Dioxide 19 L Anion Gap 17 BUN 16 Creatinine 0.83 Estim Creat Clear Calc 101.6 Estimated GFR > 60 Fasting Glucose 124 H Calcium 9.7 Total Bilirubin 0.2 AST 26 D ALT 15 Alkaline Phosphatase 145 H Total Protein 7.1 Albumin 3.9 Microbiology Microbiology Results: Microbiology 03/19/21 11:07 Blood - Venous Blood Culture - Preliminary No growth after 48 hours. 03/19/21 10:28 Blood - Venous Blood Culture - Preliminary No growth after 48 hours. Procedures Date of Service Date of Service: 03/21/21 Assessment & Plan Assessment and plan (1) Hypo-osmolar hyponatremia: Status: Acute Assessment and Plan: Hyponatremia most? likely due to beer potomania Pain may be a source of non osmotic ADH release Restrict PO water intake 1L per 24 hrs Sodium correction appropriate; Labs AM Time Spent With Patient Time: Total time spent is greater than 50% in coordination of care (as documented) at patient's floor/unit and/or counseling patient: Progress Note: Quality Stroke Does the patient have a stroke diagnosis?: No
[2021-03-21] MEDS: diphenhydrAMINE HCL 25 MG TABLET 50 MG PO (20:32)
[2021-03-21] MEDS: Melatonin 3 MG TABLET 6 MG PO (20:32)
[2021-03-21] MEDS: 0.9 % Sodium Chloride Flush 3 ML SYRINGE IVFLUSH (20:32)
[2021-03-21] MEDS: cefTRIAXone sodium 1 GM in 0.9 % Sodium Chloride 50 ML IV (20:33)
--- NOTE | 2021-03-21 21:31 | PC.NURSE ---
Urine retention Poor urine output during the day, bladder scanned patient per MD ordered. Pt had greater than 999 in bladder, he was then straight cath for 1400ML
[2021-03-22] VITALS (7 sets, daily range): BP systolic 97–135; BP diastolic 48–86; PULSE 58–73; RESP 16–20; TEMP 36.1–37.1; O2SAT 96–100
[2021-03-22] MEDS: Acetaminophen 325 MG TABLET 650 MG PO ×3 (04:37→15:53)
[2021-03-22] MEDS: carisoprodoL 350 MG TABLET PO ×2 (04:37→20:24)
[2021-03-22 06:45] LABS: MANUAL DIFF FLAG NO
[2021-03-22 06:47] LABS: Eosinophils Percent Auto 0.1 % (0-4); Hematocrit 31.3 % (42.0-52.0); Hemoglobin 10.9 g/dl (14.0-18.0); Imm Gran Abs Auto 0.07 X10*3/uL (0.00-0.03); Imm Gran Pct Auto 0.8 % (0.0-0.4); Lymphocytes Absolute Auto 1.1 X10*3/uL (1.2-4.9); Lymphocytes Percent Auto 12.8 % (20-40); Mean Corpuscular HGB Conc 34.8 g/dl (31.0-36.0); Mean Corpuscular Hemoglobin 33.6 pg (27.0-33.0); Mean Corpuscular Volume 96.6 fL (80.0-98.0); Mean Platelet Volume 8.8 fL (9.4-12.4); Monocytes Absolute Auto 1.1 X10*3/uL (0.1-1.2); Monocytes Percent Auto 12.4 % (2-11); Neutrophils Absolute Auto 6.6 x10*3/uL (2.0-8.3); Neutrophils Percent Auto 73.9 % (45-73); Platelet Count 323 X10*3/uL (160-400); Red Blood Count 3.24 X10*6/uL (4.60-5.80); Red Cell Distribution Width 13.6 % (11.0-16.0); White Blood Count 8.9 X10*3/uL (4.8-10.8)
[2021-03-22 07:18] LABS: Alanine Aminotransferase 14 U/L (0-40); Albumin Level 3.4 g/dL (3.5-5.0); Alkaline Phosphatase 143 U/L (39-117); Anion Gap 11 (12-20); Aspartate Amino Transferase 16 U/L (5-37); Bilirubin Total 0.3 mg/dL (0.0-1.0); Blood Urea Nitrogen 22 mg/dL (9-16); Calcium 9.1 mg/dL (8.4-10.2); Carbon Dioxide 25 mmol/L (22-29); Chloride 95 mmol/L (96-108); Creatinine Clr Calc Pharmacy 99.2; Estimated Glomerular Filt Rate > 60; Glucose Fasting 100 mg/dL (60-99); Potassium 4.3 mmol/L (3.3-5.1); Sodium 127 mmol/L (135-145)
[2021-03-22] MEDS: 0.9 % Sodium Chloride Flush 3 ML SYRINGE IVFLUSH ×3 (09:24→20:31)
[2021-03-22] MEDS: PHENobarbitaL 30 MG TABLET 60 MG PO (09:25)
[2021-03-22] MEDS: Famotidine 20 MG TABLET PO ×2 (09:26→20:25)
[2021-03-22] MEDS: Dabigatran Etexilate Mesylate 150 MG CAPSULE PO ×2 (09:26→20:24)
[2021-03-22] MEDS: Metoprolol Succinate ER 100 MG TAB.ER.24H PO (09:26)
[2021-03-22] MEDS: predniSONE 20 MG TABLET 60 MG PO (09:33)
--- NOTE | 2021-03-22 12:23 | PM.PNNEP ---
Subjective Subjective Date of Service: 03/22/21 Interval history: Events noted. All recent data reviewed Physical Exam Vital Signs: Vital Signs: Last Vital Signs Temp 97.0 F 03/22/21 11:12 Pulse 58 03/22/21 11:12 Resp 20 03/22/21 11:12 BP 112/64 03/22/21 11:12 Pulse Ox 100 03/22/21 11:12 BMI result Body Mass Index 29.1 Const: General: no acute distress Neck: Neck: Yes supple Resp: Auscultation: diminished lung sounds Cardio: Rate: regular rate GI: Palpation (GI): Soft to palpation Neuro: General: moves all extremities Objective Data Labs CBC & Chem 7: 03/22/21 05:41 03/22/21 05:41 Labs: Laboratory Results - last 24 hr 03/22/21 03/22/21 05:41 05:41 WBC 8.9 RBC 3.24 L Hgb 10.9 L Hct 31.3 L MCV 96.6 MCH 33.6 H MCHC 34.8 RDW 13.6 Plt Count 323 MPV 8.8 L Immature Gran % (Auto) 0.8 H Neut % (Auto) 73.9 H Lymph % (Auto) 12.8 L [place] % (Auto) 12.4 H Eos % (Auto) 0.1 Baso % (Auto) 0.0 Lymph # (Auto) 1.1 L [place] # (Auto) 1.1 Eos # (Auto) 0.0 Baso # (Auto) 0.0 Abs Immat Gran (auto) 0.07 H Absolute Neuts (auto) 6.6 Absolute Nucleated RBC 0.000 Nucleated RBC % (auto) 0.0 Sodium 127 L Potassium 4.3 Chloride 95 L Carbon Dioxide 25 Anion Gap 11 L BUN 22 H Creatinine 0.85 Estim Creat Clear Calc 99.2 Estimated GFR > 60 Fasting Glucose 100 H Calcium 9.1 D Total Bilirubin 0.3 AST 16 ALT 14 Alkaline Phosphatase 143 H Total Protein 6.0 L Albumin 3.4 L Microbiology Microbiology Results: Microbiology 03/19/21 11:07 Blood - Venous Blood Culture - Preliminary No growth after 48 hours. 03/19/21 10:28 Blood - Venous Blood Culture - Preliminary No growth after 48 hours. Procedures Date of Service Date of Service: 03/22/21 Assessment & Plan Assessment and plan (1) Hyponatremia: Status: Acute Assessment and Plan: Hyponatremia most? likely due to beer potomania Pain may be a source of non osmotic ADH release Restrict PO water intake 1L per 24 hrs Sodium correction appropriate; Labs AM Time Spent With Patient Time: Total time spent is greater than 50% in coordination of care (as documented) at patient's floor/unit and/or counseling patient: Progress Note: Quality Stroke Does the patient have a stroke diagnosis?: No
--- NOTE | 2021-03-22 13:47 | MHC.CARE ---
CARE Team met with patient in response to consult request for risk assessment. Patient was seated in a chair; he was alert and oriented, engaged easily, somewhat irritable and apologized for his gruffness several times. 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 Patient admitted to having suicidal thoughts at times, he denied any plan or intention, has no history of gestures or attempts. Appeared to be speaking with honesty and thought, was tearful at times describing how he came to this point in his life. Patient is future oriented, has a dog he loves, one very good friend and is selling his home readying for a move to [place], will live with his brother, he said it is not ideal but is stable and safe. Local referrals to therapy or MAT not appropriate. Patient is open to meeting with loss prevention specialist, would benefit from an additional meeting with the CARE team for supportive contact. Providers updated
[2021-03-22] MEDS: hydrOXYzine HCL 25 MG TABLET PO ×2 (15:53→20:24)
--- NOTE | 2021-03-22 16:43 | HO.PM.IMPN ---
Subjective Subjective Date of Service: 03/22/21 Interval History: Doing well on phenobarb protocol. Much more clear today. Still problems with urinary retention Review of Systems Denies chest pain Denies shortness of breath Physical Exam Vital Signs: Vital Signs: Last Vital Signs Temp 98.0 F 03/22/21 15:10 Pulse 71 03/22/21 15:10 Resp 20 03/22/21 15:10 BP 97/48 L 03/22/21 15:10 Pulse Ox 96 03/22/21 15:10 BMI result Body Mass Index 29.1 Const: Other: no acute distress Resp: Other: clear to auscultation bilaterally no rales rhonchi or wheezes Cardio: Other: no S4; positive S1-S2; S3 murmurs rubs or gallops GI: Other: soft nontender nondistended normoactive bowel sounds x4 quadrants no appreciable hepatosplenomegaly Neuro: Other: cranial nerves 2-12 grossly intact as tested. Motor is 5/5 all extremities. Sensation intact. Cognition is appropriate Extrem: Other: no edema bilaterally Objective Data Active Medications Acetaminophen (Acetaminophen 325 Mg Tablet) 650 mg PO Q6H PRN PRN Reason: Pain, Mild (Pain Scale 1-3) Last Admin: 03/22/21 15:53 Dose: 650 mg Documented by: JESSE Carisoprodol (Carisoprodol 350 Mg Tablet) 350 mg PO TID PRN PRN Reason: Muscle Spasm Last Admin: 03/22/21 04:37 Dose: 350 mg Documented by: AIDEN Dabigatran (Dabigatran Etexilate Mesylate 150 Mg Capsule) 150 mg PO BID [facility] Last Admin: 03/22/21 09:26 Dose: 150 mg Documented by: JESSE Diphenhydramine HCl (Diphenhydramine Hcl 25 Mg Tablet) 50 mg PO BEDTIME [facility] Last Admin: 03/21/21 20:32 Dose: 50 mg Documented by: AIDEN Famotidine (Famotidine 20 Mg Tablet) 20 mg PO BID [facility] Last Admin: 03/22/21 09:26 Dose: 20 mg Documented by: JESSE Hydroxyzine HCl (Hydroxyzine Hcl 25 Mg Tablet) 25 mg PO Q6H PRN PRN Reason: Anxiety Last Admin: 03/22/21 15:53 Dose: 25 mg Documented by: JESSE Ceftriaxone Sodium 1 gm/ (Sodium Chloride) 50 mls @ 100 mls/hr IV Q24H [facility] Last Infusion: 03/21/21 21:16 Dose: 0 mls/hr Documented by: ANTINDIA Medication (No Benzodiazepines) 1 each MISCELLANE DAILY [facility] Melatonin (Melatonin 3 Mg Tablet) 6 mg PO BEDTIME PRN PRN Reason: Insomnia Last Admin: 03/21/21 20:32 Dose: 6 mg Documented by: AIDEN Metoprolol Succinate (Metoprolol Succinate Er 100 Mg Tab.Er.24h) 100 mg PO DAILY [facility]; Protocol Last Admin: 03/22/21 09:26 Dose: 100 mg Documented by: JESSE Phenobarbital (Phenobarbital 30 Mg Tablet) 30 mg PO BID [facility]; Protocol Stop: 03/24/21 09:01 Phenobarbital (Phenobarbital 30 Mg Tablet) 30 mg PO DAILY [facility]; Protocol Stop: 03/26/21 09:01 Prednisone (Prednisone 20 Mg Tablet) 60 mg PO DAILY [facility] Last Admin: 03/22/21 09:33 Dose: 60 mg Documented by: JESSE Senna (Sennosides 8.6 Mg Tablet) 17.2 mg PO BEDTIME PRN PRN Reason: Constipation Sodium Chloride (0.9 % Sodium Chloride Flush 3 Ml Syringe) 3 ml IVFLUSH QSHIFT [facility] Last Admin: 03/22/21 09:24 Dose: 3 ml Documented by: JESSE Labs CBC & Chem 7: 03/22/21 05:41 03/22/21 05:41 Labs: Laboratory Results - last 24 hr 03/22/21 03/22/21 05:41 05:41 MCV 96.6 MCH 33.6 H MCHC 34.8 RDW 13.6 Plt Count 323 MPV 8.8 L Immature Gran % (Auto) 0.8 H Neut % (Auto) 73.9 H Lymph % (Auto) 12.8 L [place] % (Auto) 12.4 H Eos % (Auto) 0.1 Baso % (Auto) 0.0 Lymph # (Auto) 1.1 L [place] # (Auto) 1.1 Eos # (Auto) 0.0 Baso # (Auto) 0.0 Abs Immat Gran (auto) 0.07 H Absolute Neuts (auto) 6.6 Absolute Nucleated RBC 0.000 Nucleated RBC % (auto) 0.0 Anion Gap 11 L Estim Creat Clear Calc 99.2 Estimated GFR > 60 Fasting Glucose 100 H Calcium 9.1 D Total Bilirubin 0.3 AST 16 ALT 14 Alkaline Phosphatase 143 H Total Protein 6.0 L Albumin 3.4 L Microbiology Microbiology Results: Microbiology 03/19/21 11:07 Blood Culture - Preliminary Blood - Venous No growth after 48 hours. 03/19/21 10:28 Blood Culture - Preliminary Blood - Venous No growth after 48 hours. Assessment and Plan (1) Alcohol withdrawal: Status: Acute (2) Hypo-osmolar hyponatremia: Status: Acute (3) HTN (hypertension): Status: Acute Assessment and Plan: 70-year-old male with a past medical history of hypertension, AFib on Pradaxa, alcohol abuse, major depression, history of hyponatremia, history of recurrent falls presented to the hospital with a chief complaint of dizziness. Clear her today on phenobarb protocol 1. Acute alcohol withdraw See by care team... No acute SI DC sitter 2. Hyponatremia (beer potomania) Fluid restriction 1500ml/24hrs Slowly improving.... sodium 124-131 12/22/20 to present. 3. Afib Rate conttrol adequate. Continue Pradaxa...continue BB as per outpatient dosing 4.HTN now hypotensive. Will hold meds pending response 5. UTI Continue CTX...adjust pending blood cultures(Urine not sent). retaining urine. . . Straight cath p.r.n. At [place] at HS DVT prophylaxis: Patient on systemic anticoagulation Code status: Full code Quality Stroke Does the patient have a stroke diagnosis?: No VTE Prior VTE?: No VTE Risk Level:: Medical - moderate - high VTE Device Contraindication: N/A - Device Ordered VTE Drug Contraindication: Treatment Not Indicated
[2021-03-22] MEDS: diphenhydrAMINE HCL 25 MG TABLET 50 MG PO (20:24)
[2021-03-22] MEDS: Tamsulosin HCL 0.4 MG CAPSULE PO (20:24)
[2021-03-22] MEDS: Sennosides 8.6 MG TABLET 17.2 MG PO (20:25)
[2021-03-22] MEDS: PHENobarbitaL 30 MG TABLET PO (20:25)
[2021-03-22] MEDS: cefTRIAXone sodium 1 GM in 0.9 % Sodium Chloride 50 ML IV (22:52)
[2021-03-23] VITALS (7 sets, daily range): BP systolic 102–140; BP diastolic 57–81; PULSE 60–72; RESP 16–20; TEMP 36.4–37.2; O2SAT 96–100
[2021-03-23] MEDS: oxyCODONE HCl Immed Release 5 MG TABLET PO (00:44)
--- NOTE | 2021-03-23 05:19 | PC.NURSE ---
Indwelling catheter placed at 0130, patent and draining. Patient tolerated well.
[2021-03-23 06:36] LABS: MANUAL DIFF FLAG NO
[2021-03-23 06:48] LABS: Basophils Percent Auto 0.1 % (0-2); Eosinophils Percent Auto 0.4 % (0-4); Imm Gran Abs Auto 0.06 X10*3/uL (0.00-0.03); Imm Gran Pct Auto 0.8 % (0.0-0.4); Lymphocytes Absolute Auto 1.6 X10*3/uL (1.2-4.9); Lymphocytes Percent Auto 20.6 % (20-40); Mean Corpuscular HGB Conc 34.4 g/dl (31.0-36.0); Mean Corpuscular Hemoglobin 33.5 pg (27.0-33.0); Mean Corpuscular Volume 97.6 fL (80.0-98.0); Mean Platelet Volume 8.7 fL (9.4-12.4); Monocytes Absolute Auto 1.1 X10*3/uL (0.1-1.2); Monocytes Percent Auto 14.6 % (2-11); Neutrophils Percent Auto 63.5 % (45-73); Platelet Count 327 X10*3/uL (160-400); Red Blood Count 3.28 X10*6/uL (4.60-5.80); Red Cell Distribution Width 13.6 % (11.0-16.0); White Blood Count 7.8 X10*3/uL (4.8-10.8)
[2021-03-23 07:32] LABS: Alanine Aminotransferase 13 U/L (0-40); Albumin Level 3.4 g/dL (3.5-5.0); Alkaline Phosphatase 136 U/L (39-117); Anion Gap 14 (12-20); Aspartate Amino Transferase 14 U/L (5-37); Bilirubin Total 0.2 mg/dL (0.0-1.0); Blood Urea Nitrogen 19 mg/dL (9-16); Calcium 9.3 mg/dL (8.4-10.2); Carbon Dioxide 25 mmol/L (22-29); Chloride 98 mmol/L (96-108); Creatinine Clr Calc Pharmacy 115.5; Estimated Glomerular Filt Rate > 60; Glucose Fasting 98 mg/dL (60-99); Potassium 4.7 mmol/L (3.3-5.1); Sodium 132 mmol/L (135-145); Total Protein 5.9 g/dL (6.5-8.0)
[2021-03-23] MEDS: Acetaminophen 325 MG TABLET 650 MG PO ×2 (09:13→17:25)
[2021-03-23] MEDS: Famotidine 20 MG TABLET PO ×2 (09:14→20:08)
[2021-03-23] MEDS: PHENobarbitaL 30 MG TABLET PO ×2 (09:14→20:08)
[2021-03-23] MEDS: Dabigatran Etexilate Mesylate 150 MG CAPSULE PO ×2 (09:15→20:07)
[2021-03-23] MEDS: hydrOXYzine HCL 25 MG TABLET PO ×2 (09:15→17:25)
[2021-03-23] MEDS: predniSONE 20 MG TABLET 60 MG PO (09:15)
[2021-03-23] MEDS: Metoprolol Succinate ER 100 MG TAB.ER.24H PO (09:15)
[2021-03-23] MEDS: carisoprodoL 350 MG TABLET PO ×2 (09:15→17:25)
--- NOTE | 2021-03-23 14:05 | MHC.CM.PN ---
Male 70 DX Hyponatremia. He is awake alert and oriented x 3. ETOH W/D ss resolved. Na+ is improving. The patient has a Arguelles catheter for urinary retention. Discharge is anticipated in 1-2 days.
[2021-03-23] MEDS: 0.9 % Sodium Chloride Flush 3 ML SYRINGE IVFLUSH ×2 (14:59→20:09)
[2021-03-23] MEDS: Lactulose 20 GM/30 ML SOLUTION PO (14:59)
--- NOTE | 2021-03-23 15:17 | HO.PM.IMPN ---
Subjective Subjective Date of Service: 03/23/21 Interval History: Continues to improve on phenobarb protocol. Had some urinary retention which required indwelling Arguelles. Review of Systems Denies chest pain Denies shortness of breath Denies nausea vomiting diarrhea Physical Exam Vital Signs: Vital Signs: Last Vital Signs Temp 97.6 F 03/23/21 11:11 Pulse 65 03/23/21 11:11 Resp 18 03/23/21 11:11 BP 107/57 L 03/23/21 11:11 Pulse Ox 100 03/23/21 11:11 BMI result Body Mass Index 29.1 Const: Other: no acute distress Resp: Other: clear to auscultation bilaterally no rales rhonchi or wheezes Cardio: Other: no S4; positive S1-S2; S3 murmurs rubs or gallops GI: Other: soft nontender nondistended normoactive bowel sounds x4 quadrants no appreciable hepatosplenomegaly Neuro: Other: cranial nerves 2-12 grossly intact as tested. Motor is 5/5 all extremities. Sensation intact. Cognition is appropriate Extrem: Other: no edema bilaterally Objective Data Active Medications Acetaminophen (Acetaminophen 325 Mg Tablet) 650 mg PO Q6H PRN PRN Reason: Pain, Mild (Pain Scale 1-3) Last Admin: 03/23/21 09:13 Dose: 650 mg Documented by: COTEMA Carisoprodol (Carisoprodol 350 Mg Tablet) 350 mg PO TID PRN PRN Reason: Muscle Spasm Last Admin: 03/23/21 09:15 Dose: 350 mg Documented by: COTEMA Dabigatran (Dabigatran Etexilate Mesylate 150 Mg Capsule) 150 mg PO BID [facility] Last Admin: 03/23/21 09:15 Dose: 150 mg Documented by: COTEMA Diphenhydramine HCl (Diphenhydramine Hcl 25 Mg Tablet) 50 mg PO BEDTIME [facility] Last Admin: 03/22/21 20:24 Dose: 50 mg Documented by: JUAN C Famotidine (Famotidine 20 Mg Tablet) 20 mg PO BID [facility] Last Admin: 03/23/21 09:14 Dose: 20 mg Documented by: COTEMA Hydroxyzine HCl (Hydroxyzine Hcl 25 Mg Tablet) 25 mg PO Q6H PRN PRN Reason: Anxiety Last Admin: 03/23/21 09:15 Dose: 25 mg Documented by: NICKI Ceftriaxone Sodium 1 gm/ (Sodium Chloride) 50 mls @ 100 mls/hr IV Q24H [facility] Last Infusion: 03/22/21 23:45 Dose: 0 mls/hr Documented by: JUAN C Medication (No Benzodiazepines) 1 each MISCELLANE DAILY [facility] Melatonin (Melatonin 3 Mg Tablet) 6 mg PO BEDTIME PRN PRN Reason: Insomnia Last Admin: 03/21/21 20:32 Dose: 6 mg Documented by: ANTOIC Metoprolol Succinate (Metoprolol Succinate Er 100 Mg Tab.Er.24h) 100 mg PO DAILY [facility]; Protocol Last Admin: 03/23/21 09:15 Dose: 100 mg Documented by: MANINDEREMA Phenobarbital (Phenobarbital 30 Mg Tablet) 30 mg PO BID [facility]; Protocol Stop: 03/24/21 09:01 Last Admin: 03/23/21 09:14 Dose: 30 mg Documented by: NICKI Phenobarbital (Phenobarbital 30 Mg Tablet) 30 mg PO DAILY [facility]; Protocol Stop: 03/26/21 09:01 Prednisone (Prednisone 20 Mg Tablet) 60 mg PO DAILY [facility] Last Admin: 03/23/21 09:15 Dose: 60 mg Documented by: NICKI Senna (Sennosides 8.6 Mg Tablet) 17.2 mg PO BEDTIME PRN PRN Reason: Constipation Last Admin: 03/22/21 20:25 Dose: 17.2 mg Documented by: JUAN C Sodium Chloride (0.9 % Sodium Chloride Flush 3 Ml Syringe) 3 ml IVFLUSH QSHIFT [facility] Last Admin: 03/23/21 14:59 Dose: 3 ml Documented by: NICKI Tamsulosin HCl (Tamsulosin Hcl 0.4 Mg Capsule) 0.4 mg PO BEDTIME [facility] Last Admin: 03/22/21 20:24 Dose: 0.4 mg Documented by: JUAN C Labs CBC & Chem 7: 03/23/21 06:00 03/23/21 06:00 Labs: Laboratory Results - last 24 hr 03/23/21 03/23/21 06:00 06:00 MCV 97.6 MCH 33.5 H MCHC 34.4 RDW 13.6 Plt Count 327 MPV 8.7 L Immature Gran % (Auto) 0.8 H Neut % (Auto) 63.5 Lymph % (Auto) 20.6 [place] % (Auto) 14.6 H Eos % (Auto) 0.4 Baso % (Auto) 0.1 Lymph # (Auto) 1.6 [place] # (Auto) 1.1 Eos # (Auto) 0.0 Baso # (Auto) 0.0 Abs Immat Gran (auto) 0.06 H Absolute Neuts (auto) 5.0 Absolute Nucleated RBC 0.000 Nucleated RBC % (auto) 0.0 Anion Gap 14 Estim Creat Clear Calc 115.5 Estimated GFR > 60 Fasting Glucose 98 Calcium 9.3 Total Bilirubin 0.2 AST 14 ALT 13 Alkaline Phosphatase 136 H Total Protein 5.9 L Albumin 3.4 L Assessment and Plan (1) Alcohol withdrawal: Status: Acute (2) Afib: Status: Acute Assessment and Plan: 70-year-old male with a past medical history of hypertension, AFib on Pradaxa, alcohol abuse, major depression, history of hyponatremia, history of recurrent falls presented to the hospital with a chief complaint of dizziness. Continues to improve on phenobarb protocol 1. Acute alcohol withdraw Complete phenobarb protocol 2. Hyponatremia (beer potomania) Fluid restriction 1500ml/24hrs Slowly improving.... 132 today. Will DC IV fluids and recheck sodium in a.m. 3. Afib Rate conttrol adequate. Continue Pradaxa...continue BB as per outpatient dosing 4.HTN Normotensive will hold meds 5. UTI Continue CTX...adjust pending blood cultures(Urine not sent). retaining urine. . . Straight cath p.r.n. At Flomax at HS DVT prophylaxis: Patient on systemic anticoagulation Code status: Full code Quality Stroke Does the patient have a stroke diagnosis?: No VTE Prior VTE?: No VTE Risk Level:: Medical - moderate - high VTE Device Contraindication: N/A - Device Ordered VTE Drug Contraindication: Treatment Not Indicated
--- NOTE | 2021-03-23 16:45 | P.PNNP_ITS ---
Subjective Subjective Date of Service: 03/23/21 Interval history: Events noted; All recent data reviewed. Physical Exam Vital Signs: Vital Signs: Last Vital Signs Temp 99 F 03/23/21 15:26 Pulse 72 03/23/21 15:26 Resp 18 03/23/21 15:26 BP 114/68 03/23/21 15:26 Pulse Ox 100 03/23/21 15:26 BMI result Body Mass Index 29.1 Const: General: no acute distress Neck: Neck: Yes supple Resp: Auscultation: diminished lung sounds Cardio: Rate: regular rate GI: Palpation (GI): Soft to palpation Neuro: General: moves all extremities Objective Data Labs CBC & Chem 7: 03/23/21 06:00 03/23/21 06:00 Labs: Laboratory Results - last 24 hr 03/23/21 03/23/21 06:00 06:00 WBC 7.8 RBC 3.28 L Hgb 11.0 L Hct 32.0 L MCV 97.6 MCH 33.5 H MCHC 34.4 RDW 13.6 Plt Count 327 MPV 8.7 L Immature Gran % (Auto) 0.8 H Neut % (Auto) 63.5 Lymph % (Auto) 20.6 [place] % (Auto) 14.6 H Eos % (Auto) 0.4 Baso % (Auto) 0.1 Lymph # (Auto) 1.6 [place] # (Auto) 1.1 Eos # (Auto) 0.0 Baso # (Auto) 0.0 Abs Immat Gran (auto) 0.06 H Absolute Neuts (auto) 5.0 Absolute Nucleated RBC 0.000 Nucleated RBC % (auto) 0.0 Sodium 132 L Potassium 4.7 Chloride 98 Carbon Dioxide 25 Anion Gap 14 BUN 19 H Creatinine 0.73 Estim Creat Clear Calc 115.5 Estimated GFR > 60 Fasting Glucose 98 Calcium 9.3 Total Bilirubin 0.2 AST 14 ALT 13 Alkaline Phosphatase 136 H Total Protein 5.9 L Albumin 3.4 L Microbiology Microbiology Results: Microbiology 03/19/21 11:07 Blood - Venous Blood Culture - Preliminary No growth after 48 hours. 03/19/21 10:28 Blood - Venous Blood Culture - Preliminary No growth after 48 hours. Procedures Date of Service Date of Service: 03/23/21 Assessment & Plan Assessment and plan (1) Hypo-osmolar hyponatremia: Status: Acute Assessment and Plan: Hyponatremia most? likely due to beer potomania Pain may be a source of non osmotic ADH release Restrict PO water intake 1L per 24 hrs; Na improved Sodium correction appropriate; Labs AM Time Spent With Patient Time: Total time spent is greater than 50% in coordination of care (as documented) at patient's floor/unit and/or counseling patient: Progress Note: Quality Stroke Does the patient have a stroke diagnosis?: No
[2021-03-23] MEDS: Melatonin 3 MG TABLET 6 MG PO (20:07)
[2021-03-23] MEDS: diphenhydrAMINE HCL 25 MG TABLET 50 MG PO (20:09)
[2021-03-23] MEDS: Tamsulosin HCL 0.4 MG CAPSULE PO (20:09)
[2021-03-23] MEDS: cefTRIAXone sodium 1 GM in 0.9 % Sodium Chloride 50 ML IV (22:34)
[2021-03-24] VITALS (7 sets, daily range): BP systolic 107–146; BP diastolic 55–80; PULSE 56–76; RESP 16–18; TEMP 36.3–37; O2SAT 97–99
[2021-03-24 06:01] LABS: MANUAL DIFF FLAG NO
[2021-03-24 06:10] LABS: Eosinophils Percent Auto 0.4 % (0-4); Hematocrit 30.3 % (42.0-52.0); Hemoglobin 10.6 g/dl (14.0-18.0); Imm Gran Abs Auto 0.08 X10*3/uL (0.00-0.03); Imm Gran Pct Auto 0.9 % (0.0-0.4); Lymphocytes Absolute Auto 1.8 X10*3/uL (1.2-4.9); Lymphocytes Percent Auto 21.4 % (20-40); Mean Corpuscular Hemoglobin 33.9 pg (27.0-33.0); Mean Corpuscular Volume 96.8 fL (80.0-98.0); Mean Platelet Volume 8.5 fL (9.4-12.4); Neutrophils Absolute Auto 5.6 x10*3/uL (2.0-8.3); Neutrophils Percent Auto 65.3 % (45-73); Platelet Count 307 X10*3/uL (160-400); Red Blood Count 3.13 X10*6/uL (4.60-5.80); White Blood Count 8.6 X10*3/uL (4.8-10.8)
[2021-03-24 06:38] LABS: Alanine Aminotransferase 16 U/L (0-40); Albumin Level 3.2 g/dL (3.5-5.0); Alkaline Phosphatase 125 U/L (39-117); Anion Gap 11 (12-20); Aspartate Amino Transferase 13 U/L (5-37); Bilirubin Total 0.2 mg/dL (0.0-1.0); Blood Urea Nitrogen 20 mg/dL (9-16); Calcium 8.9 mg/dL (8.4-10.2); Carbon Dioxide 25 mmol/L (22-29); Chloride 99 mmol/L (96-108); Creatinine Clr Calc Pharmacy 120.5; Estimated Glomerular Filt Rate > 60; Glucose Fasting 94 mg/dL (60-99); Potassium 4.2 mmol/L (3.3-5.1); Sodium 131 mmol/L (135-145); Total Protein 5.6 g/dL (6.5-8.0)
[2021-03-24] MEDS: predniSONE 20 MG TABLET 60 MG PO (09:02)
[2021-03-24] MEDS: Dabigatran Etexilate Mesylate 150 MG CAPSULE PO ×2 (09:02→20:25)
[2021-03-24] MEDS: carisoprodoL 350 MG TABLET PO ×2 (09:03→22:00)
[2021-03-24] MEDS: Famotidine 20 MG TABLET PO ×2 (09:03→20:26)
[2021-03-24] MEDS: PHENobarbitaL 30 MG TABLET PO (09:03)
[2021-03-24] MEDS: Metoprolol Succinate ER 100 MG TAB.ER.24H PO (09:04)
[2021-03-24] MEDS: 0.9 % Sodium Chloride Flush 3 ML SYRINGE IVFLUSH ×3 (09:04→20:26)
--- NOTE | 2021-03-24 11:30 | PM.PNNEP ---
Subjective Subjective Date of Service: 03/24/21 Interval history: Events noted; All recent data reviewed. Physical Exam Vital Signs: Vital Signs: Last Vital Signs Temp 98.6 F 03/24/21 11:22 Pulse 56 03/24/21 11:22 Resp 18 03/24/21 11:22 BP 109/55 L 03/24/21 11:22 Pulse Ox 99 03/24/21 11:22 BMI result Body Mass Index 29.1 Const: General: no acute distress Neck: Neck: Yes supple Resp: Auscultation: diminished lung sounds Cardio: Rate: regular rate GI: Palpation (GI): Soft to palpation Neuro: General: moves all extremities Objective Data Labs CBC & Chem 7: 03/24/21 05:33 03/24/21 05:33 Labs: Laboratory Results - last 24 hr 03/24/21 03/24/21 05:33 05:33 WBC 8.6 RBC 3.13 L Hgb 10.6 L Hct 30.3 L MCV 96.8 MCH 33.9 H MCHC 35.0 RDW 14.0 Plt Count 307 MPV 8.5 L Immature Gran % (Auto) 0.9 H Neut % (Auto) 65.3 Lymph % (Auto) 21.4 [place] % (Auto) 12.0 H Eos % (Auto) 0.4 Baso % (Auto) 0.0 Lymph # (Auto) 1.8 [place] # (Auto) 1.0 Eos # (Auto) 0.0 Baso # (Auto) 0.0 Abs Immat Gran (auto) 0.08 H Absolute Neuts (auto) 5.6 Absolute Nucleated RBC 0.000 Nucleated RBC % (auto) 0.0 Sodium 131 L Potassium 4.2 Chloride 99 Carbon Dioxide 25 Anion Gap 11 L BUN 20 H Creatinine 0.70 Estim Creat Clear Calc 120.5 Estimated GFR > 60 Fasting Glucose 94 Calcium 8.9 Total Bilirubin 0.2 AST 13 ALT 16 Alkaline Phosphatase 125 H Total Protein 5.6 L Albumin 3.2 L Microbiology Microbiology Results: Microbiology 03/19/21 11:07 Blood - Venous Blood Culture - Preliminary No growth after 48 hours. 03/19/21 10:28 Blood - Venous Blood Culture - Preliminary No growth after 48 hours. Procedures Date of Service Date of Service: 03/24/21 Assessment & Plan Assessment and plan (1) Hypo-osmolar hyponatremia: Status: Acute Assessment and Plan: Hyponatremia most? likely due to beer potomania Pain may be a source of non osmotic ADH release Na improved with current supportive care Sodium correction appropriate; Labs AM Time Spent With Patient Time: Total time spent is greater than 50% in coordination of care (as documented) at patient's floor/unit and/or counseling patient: Progress Note: Quality Stroke Does the patient have a stroke diagnosis?: No
--- NOTE | 2021-03-24 11:45 | MHC.CM.PN ---
MALE 70 DX HYPER Na+ ETOH W/D Met with Pt in regard to discharge planning. His preference for Homecare provider was obtained. A referral was made to [facility]. order: Remove calixto catheter. Patient may dc today.
--- NOTE | 2021-03-24 12:32 | P.DS_ITS ---
DS: Providers Provider Date of Service: 03/25/21 Date of admission: 03/18/21 21:58 Primary care physician: Unknown Physician Consults: 03/18/21 21:57 Consult to Nephrology Routine Consulting Provider: Zach Cr Reason for consultation: hyponatremia DS: Diagnosis Discharge Diagnosis (1) Hypo-osmolar hyponatremia: Status: Acute DS: Summary Hospital Course Hospital Course: Chief Complaint: Dizziness ?70-year-old male with a past medical history of hypertension, AFib on Pradaxa, alcohol abuse, major depression, history of hyponatremia, history of recurrent falls presented to the hospital with a chief complaint of dizziness.? Patient reported that had intermittent episodes of falls.? Today when he stood up he felt lightheaded and dizzy and subsequently had a fall; mentioned that he was too weak to get up and subsequently called his friend to bring him to the hospital for further evaluation.? Patient denied any head strike or loss of consciousness.? Denied any seizure- like activity.? Denies any numbness tingling or focal weakness.? Patient denies any hip pain neck pain or back pain.? Denied any chest pain palpitations.? Review of all other systems is negative except mentioned above ER course: ?per ER team patient exam was nonfocal; CT head and CT C-spine showed no acute findings; on labs noted to have severe hyponatremia of 122 presumed to be secondary to alcohol use.? Urinalysis was abnormal consistent with UTI.? Admitted for further management. Hospital course: 1. Acute alcohol withdraw--treated with Phenobarbital and doing well--Presently without signs or symptoms of alcohol withdrawal. We discussed the need for cessation, he is motivated to stop, presently no signs of withdrawal 2. Hyponatremia (beer potomania)--sodium has steadily improved and presently 131, Nephrology saw him and recommends fluid restriction to 1500 3. Afib ? ? Rate conttrol adequate. ? ? Continue Pradaxa...continue BB as per outpatient dosing 4.HTN--Blood pressure has been ok without meds. ?? Normotensive will hold meds 5. UTI--treated with Ceftriaxone and culture negative. Time Spent with Patient Time attestation: Total time spent providing and/or coordinating discharge services: Discharge coordination time: Greater than 30 minutes Quality: Stroke Does the patient have a stroke diagnosis?: No Physical Exam Verdana 4l Vital Signs: Verdana 4d Verdana 4d Vital Signs: Verdana 4d Verdana 4Bd Selected Entries Verdana 4d Todd Alvarado 4d Todd scott 03/25/21 08:11 03/25/21 09:10 4d Temperature 97.3 F 4d Pulse RateRate 62 83 Blood Pressure 121/58 L Pulse Oximetry 99 Oxygen Delivery Me thod Room Air DS: Data Data Completed and Pending Labs on day of discharge: Laboratory Results - last 24 hr 03/24/21 03/24/21 05:33 05:33 WBC 8.6 RBC 3.13 L Hgb 10.6 L Hct 30.3 L MCV 96.8 MCH 33.9 H MCHC 35.0 RDW 14.0 Plt Count 307 MPV 8.5 L Immature Gran % (Auto) 0.9 H Neut % (Auto) 65.3 Lymph % (Auto) 21.4 [place] % (Auto) 12.0 H Eos % (Auto) 0.4 Baso % (Auto) 0.0 Lymph # (Auto) 1.8 [place] # (Auto) 1.0 Eos # (Auto) 0.0 Baso # (Auto) 0.0 Abs Immat Gran (auto) 0.08 H Absolute Neuts (auto) 5.6 Absolute Nucleated RBC 0.000 Nucleated RBC % (auto) 0.0 Sodium 131 L Potassium 4.2 Chloride 99 Carbon Dioxide 25 Anion Gap 11 L BUN 20 H Creatinine 0.70 Estim Creat Clear Calc 120.5 Estimated GFR > 60 Fasting Glucose 94 Calcium 8.9 Total Bilirubin 0.2 AST 13 ALT 16 Alkaline Phosphatase 125 H Total Protein 5.6 L Albumin 3.2 L Preliminary micro results at discharge 03/19/21 11:07 Blood Culture - Preliminary Blood - Venous No growth after 48 hours. 03/19/21 10:28 Blood Culture - Preliminary Blood - Venous No growth after 48 hours. Discharge Plan Discharge Anticipated Discharge Date/Time: 03/25/21 10:14 Patient Disposition: Home, Self-Care Discharge Diagnosis: alcohol withdrawal, hyponatremia Referrals: Physician,Unknown J [Primary Care Provider] - 1 Week Discharge Medications: Continued lisinopril 40 mg tablet 1 tab PO DAILY RF: 0 Pradaxa 150 mg capsule 1 cap PO BID RF: 0 metoprolol succinate 100 mg Tablet Extended Release 24 Hr 100 mg PO DAILY Qty: 30 RF: 0 diphenhydramine HCl [Sleep Aid (diphenhydramine)] 25 mg Capsule 50 mg PO BEDTIME RF: 0 carisoprodol [Soma] 250 mg Tablet 250 mg PO TID PRN (Reason: Muscle Spasm) RF: 0 Discontinued amlodipine 10 mg tablet 1 tab PO DAILY RF: 0 Discharge Orders: Discharge Order (Routine); Ordered 03/25/21 Ordered By: Harshad Mcdermott Diet: advance to usual diet Activity on Discharge: As tolerated Stand Alone Forms: Patient Portal Discharge page Care Plan Goals: to remain sobber, Health Concerns: alcohol dependent Plan of Treatment: stop drinking, continue andrés your usual meds, note that Norvasc is discontinued Assessment: As above
--- NOTE | 2021-03-24 12:46 | PC.NURSE ---
Addendum entered by Meli Dickens RN 03/25/21 06:37: Pt agreed to straight cath at 0130, 500ml urine drained. Addendum entered by Meli Dickens RN 03/25/21 00:47: Pt voided 300ml at 2045. Bladder scanned and post void residual was 95ml. Pt bladder scanned again at 0015 for 484ml, notified, ordered straight cath. Pt very upset, does not want straight cath at this time. MD notified and ok to wait on straight cath. Will bladder scan again in a few hours. Addendum entered by Cassia Villanueva RN 03/24/21 19:10: Bladder scanned at 6pm 290 mL. pending void. Original Note: Arguelles catheter removed per MD order at 12:28pm.
--- NOTE | 2021-03-24 16:20 | P.PNIM_ITS ---
Subjective Subjective Date of Service: 03/24/21 Interval History: Seen in f/u for low sodium, alcohol withdrawal Review of Systems Denies chest pain Denies shortness of breath Denies nausea vomiting diarrhea Physical Exam Vital Signs: Vital Signs: Last Vital Signs Temp 97.9 F 03/24/21 15:29 Pulse 68 03/24/21 15:29 Resp 16 03/24/21 15:29 BP 107/64 03/24/21 15:29 Pulse Ox 99 03/24/21 15:29 BMI result Body Mass Index 29.1 Const: Other: no acute distress Objective Data Active Medications Acetaminophen (Acetaminophen 325 Mg Tablet) 650 mg PO Q6H PRN PRN Reason: Pain, Mild (Pain Scale 1-3) Last Admin: 03/23/21 17:25 Dose: 650 mg Documented by: COTEMA Dabigatran (Dabigatran Etexilate Mesylate 150 Mg Capsule) 150 mg PO BID [facility] Last Admin: 03/24/21 09:02 Dose: 150 mg Documented by: RODRIGUE Diphenhydramine HCl (Diphenhydramine Hcl 25 Mg Tablet) 50 mg PO BEDTIME [facility] Last Admin: 03/23/21 20:09 Dose: 50 mg Documented by: HEBER Famotidine (Famotidine 20 Mg Tablet) 20 mg PO BID [facility] Last Admin: 03/24/21 09:03 Dose: 20 mg Documented by: RODRIGUE Hydroxyzine HCl (Hydroxyzine Hcl 25 Mg Tablet) 25 mg PO Q6H PRN PRN Reason: Anxiety Last Admin: 03/23/21 17:25 Dose: 25 mg Documented by: NICKI Ceftriaxone Sodium 1 gm/ (Sodium Chloride) 50 mls @ 100 mls/hr IV Q24H [facility] Last Infusion: 03/23/21 23:23 Dose: 0 mls/hr Documented by: HEBER Medication (No Benzodiazepines) 1 each MISCELLANE DAILY [facility] Melatonin (Melatonin 3 Mg Tablet) 6 mg PO BEDTIME PRN PRN Reason: Insomnia Last Admin: 03/23/21 20:07 Dose: 6 mg Documented by: HEBER Metoprolol Succinate (Metoprolol Succinate Er 100 Mg Tab.Er.24h) 100 mg PO DAILY [facility]; Protocol Last Admin: 03/24/21 09:04 Dose: 100 mg Documented by: RODRIGUE Phenobarbital (Phenobarbital 30 Mg Tablet) 30 mg PO DAILY [facility]; Protocol Stop: 03/26/21 09:01 Prednisone (Prednisone 20 Mg Tablet) 60 mg PO DAILY [facility] Last Admin: 03/24/21 09:02 Dose: 60 mg Documented by: RODRIGUE Senna (Sennosides 8.6 Mg Tablet) 17.2 mg PO BEDTIME PRN PRN Reason: Constipation Last Admin: 03/22/21 20:25 Dose: 17.2 mg Documented by: JUAN C Sodium Chloride (0.9 % Sodium Chloride Flush 3 Ml Syringe) 3 ml IVFLUSH QSHIFT [facility] Last Admin: 03/24/21 15:54 Dose: 3 ml Documented by: RODRIGUE Tamsulosin HCl (Tamsulosin Hcl 0.4 Mg Capsule) 0.4 mg PO BEDTIME [facility] Last Admin: 03/23/21 20:09 Dose: 0.4 mg Documented by: HEBER Labs CBC & Chem 7: 03/24/21 05:33 03/24/21 05:33 Labs: Laboratory Results - last 24 hr 03/24/21 03/24/21 05:33 05:33 MCV 96.8 MCH 33.9 H MCHC 35.0 RDW 14.0 Plt Count 307 MPV 8.5 L Immature Gran % (Auto) 0.9 H Neut % (Auto) 65.3 Lymph % (Auto) 21.4 [place] % (Auto) 12.0 H Eos % (Auto) 0.4 Baso % (Auto) 0.0 Lymph # (Auto) 1.8 [place] # (Auto) 1.0 Eos # (Auto) 0.0 Baso # (Auto) 0.0 Abs Immat Gran (auto) 0.08 H Absolute Neuts (auto) 5.6 Absolute Nucleated RBC 0.000 Nucleated RBC % (auto) 0.0 Anion Gap 11 L Estim Creat Clear Calc 120.5 Estimated GFR > 60 Fasting Glucose 94 Calcium 8.9 Total Bilirubin 0.2 AST 13 ALT 16 Alkaline Phosphatase 125 H Total Protein 5.6 L Albumin 3.2 L Microbiology Microbiology Results: Microbiology 03/19/21 11:07 Blood Culture - Final Blood - Venous No growth after 5 days. 03/19/21 10:28 Blood Culture - Final Blood - Venous No growth after 5 days. Assessment and Plan (1) Alcohol withdrawal: Status: Acute (2) Somatic dysfunction of right sacroiliac joint: Status: Acute (3) Hypo-osmolar hyponatremia: Status: Acute Assessment and Plan: 70-year-old male with a past medical history of hypertension, AFib on Pradaxa, alcohol abuse, major depression, history of hyponatremia, history of recurrent falls presented to the hospital with a chief complaint of dizziness. Continues to improve on phenobarb protocol 1. Acute alcohol withdraw Complete phenobarb protocol, no signs of withdrawal 2. Hyponatremia (beer potomania) Fluid restriction 1500ml/24hrs Slowly improving.... 131 today. . 3. Afib Rate conttrol adequate. Continue Pradaxa...continue BB as per outpatient dosing 4.HTN--meds on hold, bp nl 5. UTI Continue CTX...adjust pending blood cultures(Urine not sent). retaining urine. . . Straight cath p.r.n. At Flomax at HS DVT prophylaxis: Patient on systemic anticoagulation Code status: Full code Discharge in the morning Quality Stroke Does the patient have a stroke diagnosis?: No VTE Prior VTE?: No VTE Risk Level:: Medical - moderate - high VTE Device Contraindication: N/A - Device Ordered VTE Drug Contraindication: Treatment Not Indicated
[2021-03-24] MEDS: diphenhydrAMINE HCL 25 MG TABLET 50 MG PO (20:25)
[2021-03-24] MEDS: Melatonin 3 MG TABLET 6 MG PO (20:26)
[2021-03-24] MEDS: Tamsulosin HCL 0.4 MG CAPSULE PO (20:26)
[2021-03-24] MEDS: Sennosides 8.6 MG TABLET 17.2 MG PO (20:28)
[2021-03-24] MEDS: cefTRIAXone sodium 1 GM in 0.9 % Sodium Chloride 50 ML IV (22:01)
[2021-03-25] MEDS: Acetaminophen 325 MG TABLET 650 MG PO (01:40)
[2021-03-25] MEDS: hydrOXYzine HCL 25 MG TABLET PO (01:40)
[2021-03-25 04:00] VITALS: PULSE 61; RESP 16
[2021-03-25 05:59] VITALS: BP 141/80; PULSE 66; RESP 17; TEMP 35.9; O2SAT 99
--- NOTE | 2021-03-25 06:38 | PC.NURSE ---
Patient bladder scanned at 0600 for 843ml. Pt stated he did not feel the urge to void but agreed to got to the bathroom and try to void. Pt was able to void 650ml. PVR 63ml.
[2021-03-25 06:52] LABS: MANUAL DIFF FLAG NO
[2021-03-25 07:08] LABS: Basophils Percent Auto 0.1 % (0-2); Eosinophils Absolute Auto 0.1 X10*3/uL (0.0-0.4); Eosinophils Percent Auto 0.7 % (0-4); Hematocrit 31.1 % (42.0-52.0); Hemoglobin 10.8 g/dl (14.0-18.0); Imm Gran Abs Auto 0.07 X10*3/uL (0.00-0.03); Imm Gran Pct Auto 0.8 % (0.0-0.4); Lymphocytes Absolute Auto 2.3 X10*3/uL (1.2-4.9); Lymphocytes Percent Auto 25.9 % (20-40); Mean Corpuscular HGB Conc 34.7 g/dl (31.0-36.0); Mean Corpuscular Hemoglobin 33.4 pg (27.0-33.0); Mean Corpuscular Volume 96.3 fL (80.0-98.0); Mean Platelet Volume 8.9 fL (9.4-12.4); Neutrophils Absolute Auto 5.5 x10*3/uL (2.0-8.3); Neutrophils Percent Auto 61.5 % (45-73); Platelet Count 334 X10*3/uL (160-400); Red Blood Count 3.23 X10*6/uL (4.60-5.80); Red Cell Distribution Width 13.6 % (11.0-16.0)
[2021-03-25 07:22] LABS: Alanine Aminotransferase 20 U/L (0-40); Albumin Level 3.2 g/dL (3.5-5.0); Alkaline Phosphatase 123 U/L (39-117); Anion Gap 11 (12-20); Aspartate Amino Transferase 15 U/L (5-37); Bilirubin Total 0.2 mg/dL (0.0-1.0); Blood Urea Nitrogen 20 mg/dL (9-16); Carbon Dioxide 26 mmol/L (22-29); Chloride 99 mmol/L (96-108); Creatinine Clr Calc Pharmacy 117.1; Estimated Glomerular Filt Rate > 60; Glucose Fasting 92 mg/dL (60-99); Potassium 4.4 mmol/L (3.3-5.1); Sodium 132 mmol/L (135-145); Total Protein 5.5 g/dL (6.5-8.0)
[2021-03-25 08:11] VITALS: BP 178/99; PULSE 62; TEMP 36.3; O2SAT 99
[2021-03-25] MEDS: 0.9 % Sodium Chloride Flush 3 ML SYRINGE IVFLUSH (09:08)
[2021-03-25] MEDS: Dabigatran Etexilate Mesylate 150 MG CAPSULE PO (09:09)
[2021-03-25] MEDS: predniSONE 20 MG TABLET 60 MG PO (09:09)
[2021-03-25] MEDS: Famotidine 20 MG TABLET PO (09:09)
[2021-03-25 09:10] VITALS: BP 121/58; PULSE 83
[2021-03-25] MEDS: PHENobarbitaL 30 MG TABLET PO (09:10)
[2021-03-25] MEDS: Metoprolol Succinate ER 100 MG TAB.ER.24H PO (09:10)
--- NOTE | 2021-03-25 11:40 | P.PNNP_ITS ---
Subjective Subjective Date of Service: 03/25/21 Interval history: Events noted. All recent data reviewed Physical Exam Vital Signs: Vital Signs: Last Vital Signs Temp 97.3 F 03/25/21 08:11 Pulse 83 03/25/21 09:10 Resp 17 03/25/21 05:59 BP 121/58 L 03/25/21 09:10 Pulse Ox 99 03/25/21 08:11 BMI result Body Mass Index 29.1 Const: General: alert Eyes: EOM: EOMs intact bilaterally Neck: Neck: Yes supple Resp: Auscultation: diminished lung sounds Cardio: Rate: regular rate GI: Palpation (GI): Soft to palpation Neuro: General: moves all extremities Objective Data Labs CBC & Chem 7: 03/25/21 05:48 03/25/21 05:48 Labs: Laboratory Results - last 24 hr 03/25/21 03/25/21 05:48 05:48 WBC 9.0 RBC 3.23 L Hgb 10.8 L Hct 31.1 L MCV 96.3 MCH 33.4 H MCHC 34.7 RDW 13.6 Plt Count 334 MPV 8.9 L Immature Gran % (Auto) 0.8 H Neut % (Auto) 61.5 Lymph % (Auto) 25.9 [place] % (Auto) 11.0 Eos % (Auto) 0.7 Baso % (Auto) 0.1 Lymph # (Auto) 2.3 [place] # (Auto) 1.0 Eos # (Auto) 0.1 Baso # (Auto) 0.0 Abs Immat Gran (auto) 0.07 H Absolute Neuts (auto) 5.5 Absolute Nucleated RBC 0.000 Nucleated RBC % (auto) 0.0 Sodium 132 L Potassium 4.4 Chloride 99 Carbon Dioxide 26 Anion Gap 11 L BUN 20 H Creatinine 0.72 Estim Creat Clear Calc 117.1 Estimated GFR > 60 Fasting Glucose 92 Calcium 9.0 Total Bilirubin 0.2 AST 15 ALT 20 Alkaline Phosphatase 123 H Total Protein 5.5 L Albumin 3.2 L Microbiology Microbiology Results: Microbiology 03/19/21 11:07 Blood - Venous Blood Culture - Final No growth after 5 days. 03/19/21 10:28 Blood - Venous Blood Culture - Final No growth after 5 days. Procedures Date of Service Date of Service: 03/25/21 Assessment & Plan Assessment and plan (1) Hyponatremia: Status: Acute Assessment and Plan: Hyponatremia most? likely due to beer potomania Pain may be a source of non osmotic ADH release Na improved with current supportive care Sodium correction appropriate; Shall arrange office F/U when D/Fred Time Spent With Patient Time: Total time spent is greater than 50% in coordination of care (as documented) at patient's floor/unit and/or counseling patient: Progress Note: Quality Stroke Does the patient have a stroke diagnosis?: No
--- NOTE | 2021-03-25 12:14 | MHC.CM.PN ---
pt going home with [facility] [place] [facility]
--- NOTE | 2021-03-25 12:23 | W.MHC.F2F ---
Service Date Service Date: 03/25/21 Reasons for Services Reason for halfway: medication treatment Reason for physical therapy: therapeutic exercises and gait/transfer training Homebound: Leaving the home is medically contraindicated at this time without the asist of a device and/or another person due th the listed conditions above and below. Homebound supporting statement: homebound due to weakness post hospitalization and therefore needs the assistance of another person Certification: Based on the above findings, I certify that this patient is confined to the home and needs intermittent halfway care, physical therapy and/or speech therapy, or continues to need occupational therapy. The patient is under my care, and I have initiated the establishment of the plan of care. The patient will be followed by a physician who will periodically review the plan of care.
== END 2021-03-25 13:39 | disposition home health service (06) | DRG 690 ==
LOC: HO.ED 19:35 → HO.EDOVER 22:35 → HO.IMC 03-19 19:10
PROVIDERS: Hospitalist; Admitting Provider Hospitalist; Emergency Provider Internal Medicine; PCP Internal Medicine; Visit Provider Internal Medicine
DX: N39.0 Urinary tract infection, site not specified (principal); F10.239 Alcohol dependence with withdrawal, unspecified; E87.1 Hypo-osmolality and hyponatremia; R33.9 Retention of urine, unspecified; M99.04 Segmental and somatic dysfunction of sacral region; F17.210 Nicotine dependence, cigarettes, uncomplicated; F32.A Depression, unspecified; R29.6 Repeated falls; Z91.81 History of falling; Z71.6 Tobacco abuse counseling; Z79.01 Long term (current) use of anticoagulants; Z20.822 Contact with and (suspected) exposure to COVID-19; Z88.2 Allergy status to sulfonamides; Z79.899 Other long term (current) drug therapy
CPT/HCPCS: 36415; 72100; 80048; 80053; 81001; 81003; 82077; 82436; 83605; 83930; 83935; 84295; 84300; 84484; 85025; 87040; 87635; 93005; 96365; 99285; C1758; J0696; J2560; Q0163